=== PATIENT | male | born 1940 | race Caucasian/White ===

== ENCOUNTER 2019-09-27 16:21 | Emergency (ER) | payer BC, MEDICARE, SELFPAY ==
--- NOTE | 2019-09-27 16:11 | ECG_ITS ---
APPROVED REPORT Exam: Resting ECG HR:70 bpm ECG Measurements Heart Rate 70 AXES MA 184 P 38 QRSd 168 QRS 51 QT 438 T 17 QTc 473 <Conclusion> Normal sinus rhythm Right bundle branch block Abnormal ECG Electronically signed by : Higinio Michael, 09/30/2019 17:13:59
[2019-09-27 16:21] VITALS: BP 109/61; PULSE 71; RESP 16; TEMP 36.6; O2SAT 99; BMI 38.5
--- NOTE | 2019-09-27 16:23 | XR_ITS ---
PROCEDURE: XR CHEST PORTABLE CLINICAL HISTORY: Chest pain COMPARISON: No exams were available for comparison FINDINGS: There is cardiomegaly. There are low lung volumes with elevated left hemidiaphragm and mild atelectatic changes in the lung bases. Upper lobes are clear. No acute bony abnormalities. IMPRESSION: Cardiomegaly with low lung volumes and bibasilar atelectasis Dictated by: Johnny Lobo MD 09/27/2019 19:19 Electronically signed by Johnny Lobo MD in [place] 09/27/2019 19:19
[2019-09-27 16:36] LABS: Basophils # 0.1 K/mm3 (0-0.2); Basophils % 0.5 % (0.1-2.0); Eosinophils # 0.6 K/mm3 (0.0-0.4); Eosinophils % 4.5 % (0.1-12.0); Hemoglobin 13.9 g/dL (14.1-18.0); Lymphocytes # 2.9 K/mm3 (0.7-4.5); Lymphocytes % 20.7 % (10-50); Mean Corpuscular HGB Conc 32.4 g/dL (31.8-35.4); Mean Corpuscular Hemoglobin 32.4 pg (27.0-31.2); Mean Platelet Volume 8.1 fl (7.4-10.4); Monocytes # 0.8 K/mm3 (0.1-1.0); Monocytes % 5.9 % (1.7-9.3); Neutrophils # 9.7 K/mm3 (1.8-7.8); Neutrophils % 68.5 % (37.0-80.0); Platelet Count 393 K/mm3 (142-424); Red Cell Distribution Width 13.9 % (11.5-17.5); White Blood Count 14.2 K/mm3 (4.8-10.8)
[2019-09-27 16:38] LABS: Chloride 106 mmol/L (98-107)
[2019-09-27 16:39] LABS: Potassium 5.2 mmoL/L (3.5-5.1); Sodium 138 mmol/L (136-145)
[2019-09-27 16:41] LABS: Blood Urea Nitrogen 37 mg/dl (9-20); Creatinine Clearance Estimated 52 mL/min (50-200); Estimated Glomerular Filt Rate 28 ml/min (>60); GFR (African American) 34 ML/MIN (>60)
[2019-09-27 16:42] LABS: Anion Gap 15.2 mEq/L (5-15); Carbon Dioxide 22 mmol/L (22.0-30.0); Glucose 124 mg/dl (74-100)
[2019-09-27 17:03] LABS: Troponin I < 0.01 ng/ml (0.00-0.034)
[2019-09-27 17:17] VITALS: BP 105/55; PULSE 71; O2SAT 94
--- NOTE | 2019-09-27 17:26 | HMH.EDGENADL ---
ED Disposition Clinical Impression: Atypical chest pain, Renal insufficiency Disposition: Home, Self-Care Condition on Discharge: Good Instructions: DI for Atypical Chest Pain Additional Instructions: Drink plenty of fluids. Follow-up with your primary care provider on Monday. You will need repeat labs to check your kidney function. Additional instructions for CHEST PAIN: See your physician as soon as possible for further evaluation. Return immediately if worsening chest pain, vomiting, shortness of breath, fever, coughing of blood. Referrals: Provider,Referral, [Primary Care Provider] - - Critical Care Critical Care Time: No Attestation: On 09/27/19, the high probability of a clinically significant, sudden or life threatening deterioration of the following system(s) required my full and direct attention, intervention and personal management. The time I documented below is in addition to time spent performing reported procedures but includes the following listed in this critical care notation. Medical Decision Making - Rich Inquiry Pt receiving controlled substance: No Vital Signs: 09/27/19 16:21 09/27/19 17:17 09/27/19 18:28 Temperature 98 F Temperature Source Oral Pulse Rate [Right Brachial] 71 71 66 Respiratory Rate 16 16 Blood Pressure [Right Arm] 109/61 L 105/55 L 114/62 Blood Pressure Mean [Right Arm] 77 71 79 Blood Pressure Source [Right Arm] Automatic Cuff Automatic Cuff Automatic Cuff Blood Pressure Position [Right Arm] Sitting Sitting Sitting 02 Sat by Pulse Oximetry 99 94 L 98 Oxygen Delivery Method Room Air Room Air Room Air 09/27/19 19:00 Temperature Temperature Source Pulse Rate [Right Brachial] 68 Respiratory Rate 20 Blood Pressure [Right Arm] 118/60 Blood Pressure Mean [Right Arm] 79 Blood Pressure Source [Right Arm] Blood Pressure Position [Right Arm] 02 Sat by Pulse Oximetry 96 Oxygen Delivery Method - Lab Data Lab Results 09/27/19 16:00: WBC 14.2 H, RBC 4.30 L, Hgb 13.9 L, Hct 43.0, MCV 100.0 H, MCH 32.4 H, MCHC 32.4, RDW 13.9, Plt Count 393, MPV 8.1, Neut % (Auto) 68.5, Lymph % (Auto) 20.7, [place] % (Auto) 5.9, Eos % (Auto) 4.5, Baso % (Auto) 0.5, Neut # (Auto) 9.7 H, Lymph # (Auto) 2.9, [place] # (Auto) 0.8, Eos # (Auto) 0.6 H, Baso # (Auto) 0.1 09/27/19 16:00: Sodium 138, Potassium 5.2 H, Chloride 106, Carbon Dioxide 22, Anion Gap 15.2 H, BUN 37 H, Creatinine 2.30 H, Estimated Creat Clear 52, Estimated GFR 28 L, Est GFR ( Amer) 34 L, Glucose 124 H, Calcium 10.0, Troponin I < 0.01 09/27/19 19:25: Troponin I < 0.01 Result diagrams: 09/27/19 16:00 09/27/19 16:00 Orders (Tests/Meds): ED MEDICATIONS Discontinued Medications Generic Name Dose Route Start Last Admin Trade Name Freq PRN Reason Stop Dose Admin Sodium Chloride 1,000 ml 09/27/19 17:41 09/27/19 17:45 Sod Chlor 0.9% 1000ml Bag IV 09/27/19 17:42 1,000 ml BOLUS ONE Administration ORDERS Category Date Time Status Troponin I Q3H Lab 09/27/19 22:30 Ordered - Radiology Data #1 Image(s): Chest Image Reviewed: Yes I reviewed the patient's radiology image, Yes I have reviewed radiologist's interpretation PROCEDURE: XR CHEST PORTABLE CLINICAL HISTORY: Chest pain COMPARISON: No exams were available for comparison FINDINGS: There is cardiomegaly. There are low lung volumes with elevated left hemidiaphragm and mild atelectatic changes in the lung bases. Upper lobes are clear. No acute bony abnormalities. IMPRESSION: Cardiomegaly with low lung volumes and bibasilar atelectasis Dictated by: Johnny Lobo MD 09/27/2019 19:19 Electronically signed by Johnny Lobo MD in [place] 09/27/2019 19:19 - ECG Data Tracing #1 EKG interpreted by Sarmad Salazar MD: Rhythm: sinus Rate: 70 [place]: normal Ectopy: none Conduction: Right bundle branch block ST Segment Changes: none T Wave Changes: none Q Waves: none No evidence of acute i
[2019-09-27 18:28] VITALS: BP 114/62; PULSE 66; RESP 16; O2SAT 98
--- NOTE | 2019-09-27 18:28 | PC.NURSE ---
pt resting. no pain at this time
[2019-09-27 19:00] VITALS: BP 118/60; PULSE 68; RESP 20; O2SAT 96
[2019-09-27 20:00] VITALS: BP 135/72; PULSE 68; O2SAT 97
[2019-09-27 20:13] LABS: Troponin I < 0.01 ng/ml (0.00-0.034)
[2019-09-27 20:31] VITALS: BP 135/72; PULSE 66; RESP 17; TEMP 36.6; O2SAT 97
== END 2019-09-27 20:34 | disposition home or self-care (01) ==
PROVIDERS: Emergency Provider Emergency Medicine
DX: R07.89 Other chest pain (principal); N28.9 Disorder of kidney and ureter, unspecified; R73.9 Hyperglycemia, unspecified
CPT/HCPCS: 36415; 71045; 80048; 84484; 85025; 93005; 96365; 99284

== ENCOUNTER 2022-01-03 10:00 | Outpatient (RCR) | payer MEDICARE, SELFPAY | END 2022-02-04 09:11 | disposition home or self-care (01) | LOC: PT.CARL 10:00 | PROVIDERS: Visit Provider Nurse Practitioner Family | DX: M15.8 Other polyosteoarthritis (principal) | CPT/HCPCS: 97010; 97012; 97014; 97110; 97140; 97163; G0283 ==

== ENCOUNTER 2023-05-04 21:39 | Inpatient (IN) | payer MEDICARE, SELFPAY ==
[2023-05-04 21:39] VITALS: BP 180/81; PULSE 91; RESP 42; TEMP 36.9; O2SAT 93; BMI 39.5
--- NOTE | 2023-05-04 21:51 | ECG_ITS ---
APPROVED REPORT Exam: Resting ECG HR:87 bpm ECG Measurements Heart Rate 87 AXES IA 205 P 40 QRSd 170 QRS 140 QT 390 T 0 QTc 435 Conclusion SINUS RHYTHM INDETERMINATE AXIS RIGHT BUNDLE BRANCH BLOCK [120+ ms QRS DURATION, UPRIGHT V1, 40+ ms S IN I/aVL/V4/V5/V6] LEFT POSTERIOR FASCICULAR BLOCK [QRS AXIS > 109, INFERIOR Q] ABNORMAL ECG UNCONFIRMED REPORT Electronically signed by : Higinio Michael MD 05/06/2023 06:34:36
[2023-05-04 22:27] VITALS: BMI 38.0
--- NOTE | 2023-05-04 22:27 | XR_ITS ---
PROCEDURE INFORMATION: Exam: XR Chest Exam date and time: 05/04/2023 10:29 PM Age: 82 years old Clinical indication: Dyspnea TECHNIQUE: Imaging protocol: Radiologic exam of the chest. Views: 1 view. COMPARISON: CR XR CHEST PORTABLE 09/27/2019 4:38 PM FINDINGS: Lungs: Stable atelectasis of the left lung base. Pleural spaces: No large effusion or pneumothorax. Heart/Mediastinum: Stable cardiac and mediastinal contours. Bones/joints: No evidence of acute osseous abnormalities within the visualized portions of the thoracic spine and ribs. Osseous structures appear appropriate for patient age. Gastrointestinal tract: There is mild gaseous distention of partially visualized bowel loops. IMPRESSION: Atelectasis at the left lung base, present since September 27, 2019 which may obscure parenchymal consolidation.
--- NOTE | 2023-05-04 22:29 | ED_ITS ---
Discharge Plan Disposition Patient Disposition: Still a Patient Chief Complaint: Recheck/Abnormal Lab/Rx Prescriptions Prescriptions: No Action alprazolam 1 mg tablet 1 mg PO HS metoprolol tartrate 100 mg tablet 100 mg PO BID diphenoxylate-atropine 2.5-0.025 mg tablet 2.5 tab PO DAILY PRN (Reason: Diarrhea) tramadol 50 mg tablet 50 mg PO BID tamsulosin 0.4 mg capsule 0.4 mg PO DAILY levothyroxine 50 mcg tablet 50 mcg PO DAILY lisinopril 10 mg tablet 10 mg PO DAILY hydrochlorothiazide 25 mg tablet 25 mg PO DAILY furosemide 20 mg tablet 20 mg PO DAILY PRN (Reason: as need for swelling ) escitalopram oxalate 10 mg tablet 10 mg PO DAILY Tradjenta 5 mg tablet 5 mg PO DAILY Referrals Follow up/Referrals: Marlyn Ortega [Primary Care Provider] - See instructions Clinical Impressions Clinical Impression: Chills Discharge ED Provider: Mary Ledesma General Adult HPI General Chief complaint: Recheck/Abnormal Lab/Rx Stated complaint: onset of 'chills, cold' @ 1900 Time Seen by Provider: 05/04/23 22:12 Mode of Arrival: EMS Source of Information: Patient and EMS Limitations: No Limitations Description of Symptoms (Recalled from ER Triage Doc. by RN): Patient arrived by EMS with a chief complaint of chills and general unwellness. Patient reports that he began having chills at approximately 6pm and shortly after had a brief sharp chest pain to his left upper chest. 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 Patient denies increased shortness of breath. Spouse states that he stated that he just couldn't get warm and that he said he didn't think he would make it through the night History of Present Illness HPI narrative: Is a an 82-year-old male who is a poor historian presents today with chills. States that he has had chills for the last 24 hours. States he does not feel sick he just feels very cold and has been able to get warm. Has a difficult time being normal at times this is more than normal. Denies any cough satiety or diarrhea states he may have some increased urine output over the last several days. Denies any significant dysuria or hematuria etc. Denies any abdominal pain chest pain shortness of breath states he is always little bit tachypneic. No objective fever during this time. Currently states he does not feel sick and that he feels good. Denies any rash or any other concerns. Related Data Home Medications Medication Instructions Recorded Confirmed alprazolam 1 mg tablet 1 mg PO HS 05/04/23 05/04/23 diphenoxylate-atropine 2.5 2.5 tab PO DAILY PRN Diarrhea 05/04/23 05/04/23 mg-0.025 mg tablet escitalopram oxalate 10 mg tablet 10 mg PO DAILY 05/04/23 05/04/23 furosemide 20 mg tablet 20 mg PO DAILY PRN as need for 05/04/23 05/04/23 swelling hydrochlorothiazide 25 mg tablet 25 mg PO DAILY 05/04/23 05/04/23 levothyroxine 50 mcg tablet 50 mcg PO DAILY 05/04/23 05/04/23 linagliptin 5 mg tablet (Tradjenta) 5 mg PO DAILY 05/04/23 05/04/23 lisinopril 10 mg tablet 10 mg PO DAILY 05/04/23 05/04/23 metoprolol tartrate 100 mg tablet 100 mg PO BID 05/04/23 05/04/23 tamsulosin 0.4 mg capsule 0.4 mg PO DAILY 05/04/23 05/04/23 tramadol 50 mg tablet 50 mg PO BID 05/04/23 05/04/23 Allergies Allergy/AdvReac Type Severity Reaction Status Date / Time No Known Allergies Allergy Verified 09/27/19 16:26 [facility] Disclaimer: The information contained in this section may have been updated after the patient was seen, as this information can be updated by other users. Social History Smoking Status: Never smoker alcohol intake: never current occupational status: retired Travel in the last 8 weeks: None ROS Obtained: Yes All systems reviewed & no additional complaints except as do cumented Physical Exam General General appearance: alert and in no apparent distress Respiratory Respiratory exam: Present normal lung sounds bilaterally and other (Patient mildly tachypneic states he is breathing how he normally breathes he does not feel short of breath); Absent respiratory distress Cardiovascular Cardiovascular exam: Present regular rate and normal rhythm Abdominal Exam Abdominal exam: Present soft; Absent distention or tenderness Neurological Exam Neurological exam: Present alert and oriented X3 Medical Decision Making Rich Inquiry Pt receiving controlled substance: No Vital Signs: 05/04/23 21:39 Temperature 98.5 F Temperature Source Oral Pulse Rate [Left Radial] 91 H Respiratory Rate 42 H Blood Pressure [Right Arm] 180/81 H Blood Pressure Mean [Right Arm] 114 Blood Pressure Source [Right Arm] Automatic Cuff Blood Pressure Position [Right Arm] Sitting 02 Sat by Pulse Oximetry 93 L Oxygen Delivery Method Room Air Orders (Tests/Meds): ORDERS Category Date Time Status CXR --portable [XR chest portable] Stat Exams 05/04/23 22:27 Ordered POCUS Point of Care (ER Only) Stat Exams 05/04/23 22:12 Ordered BNP [Brain Natriuretic Peptide] Stat Lab 05/04/23 22:27 Ordered CBC w/Auto Diff [Complete Blood Count Auto Diff] Stat Lab 05/04/23 22:27 Ordered CMP [Comprehensive Metabolic Panel] Stat Lab 05/04/23 22:27 Ordered Lactic Acid Stat Lab 05/04/23 22:27 Ordered Rapid PCR Covid and Flu A/B Stat Lab 05/04/23 22:27 Ordered Trop I [Troponin I] Stat Lab 05/04/23 22:27 Ordered Troponin I Q3H Lab 05/05/23 01:30 Ordered Troponin I Q3H Lab 05/05/23 04:30 Ordered UA [Urinalysis and Microscopic] Stat Lab 05/04/23 22:27 Ordered Blood Culture Stat Micro 05/04/23 22:27 Ordered Medical Decision Narrative: 82-year-old male presents today with chills. Patient states he does not feel sick and just feels very cold unable to get warm. It is possible the patient is bacteremic or has chills as a result of an infection. Will get rapid COVID and flu chest x-ray urinalysis blood culture and check basic blood work including lactic acid. Patient appears fairly normal. He was a little tachypneic I did a bedside ultrasound he is obese and has a difficult body habitus to see his hea rt. No obvious evidence of diminished LVEF etc. Suspect the patient is just cold but sepsis is certainly in the differential in the setting of infection. States he feels good at the moment EKG was performed to person interpreted shows a ventricular rate of 87 with right bundle branch block no acute ischemic changes noted no other conduction abnormalities there is an indeterminate axis left posterior fascicular block as well. Workup has been initiated and care will be transitioned to Dr. Lauren Savage at 11 PM for further evaluation and treatment. Critical Care Critical Care Time Critical Care Time: No
[2023-05-04 22:36] LABS: Microscopic, Urine URINE MICROSCOPIC (MICROSCOPIC)
[2023-05-04 22:37] LABS: Basophils # 0.1 K/mm3 (0-0.2); Basophils % 0.2 % (0.1-2.0); Eosinophils # 0.3 K/mm3 (0.0-0.4); Eosinophils % 0.9 % (0.1-12.0); Hematocrit 44.9 % (42.0-52.0); Hemoglobin 14.1 g/dL (14.1-18.0); Lymphocytes # 1.1 K/mm3 (0.7-4.5); Lymphocytes % 3.8 % (10-50); Mean Corpuscular HGB Conc 31.4 g/dL (31.8-35.4); Mean Corpuscular Volume 101.7 fl (80-94); Mean Platelet Volume 8.6 fl (7.4-10.4); Monocytes # 0.9 K/mm3 (0.1-1.0); Neutrophils # 26.4 K/mm3 (1.8-7.8); Neutrophils % 92.2 % (37.0-80.0); Platelet Count 241 K/mm3 (142-424); Red Blood Count 4.41 M/mm3 (4.60-6.20); Red Cell Distribution Width 13.9 % (11.5-17.5); White Blood Count 28.6 K/mm3 (4.8-10.8)
[2023-05-04 22:39] LABS: Appearance,Urine CLEAR (Clear); Bilirubin,Urine Negative (Negative); Blood, Urine Negative (Negative); Color,Urine YELLOW (Yellow); Glucose,Urine (UA) 1+ (Negative); Ketones,Urine Negative (Negative); Leukocyte Esterase,Urine Negative (Negative); Nitrate,Urine Negative (Negative); Protein,Urine TRACE (Negative); Specific Gravity, Urine 1.015 (1.005-1.030); Urobilinogen,Urine >=8.0 EU/dl (0.2)
[2023-05-04 22:40] LABS: MANUAL DIFFERENTIAL MANUAL DIFFERENTIAL (MANUAL DIFF)
[2023-05-04 22:42] LABS: Lactic Acid 1.8 mmol/L (0.7-2.1)
[2023-05-04 22:43] LABS: Alanine Aminotransferase 21 U/L (12-78); Albumin Level 3.6 g/dl (3.5-5.0); Albumin/Globulin Ratio 1.1 (1.1-1.8); Alkaline Phosphatase 53 U/L (38-126); Anion Gap 8.3 mEq/L (5-15); Aspartate Amino Transferase 27 U/L (17-59); Bilirubin,Total 1.2 mg/dl (0.2-1.3); Blood Urea Nitrogen 22 mg/dl (9-20); Calcium 9.2 mg/dl (8.4-10.2); Carbon Dioxide 33 mmol/L (22.0-30.0); Chloride 100 mmol/L (98-107); Creatinine Clearance Estimated 104 mL/min (50-200); Estimated Glomerular Filt Rate 64 ml/min (>60); GFR (African American) 78 ML/MIN (>60); Globulin 3.4 g/dL (1.3-3.2); Glucose 240 mg/dl (74-100); Potassium 4.3 mmoL/L (3.5-5.1); Sodium 137 mmol/L (136-145)
[2023-05-04 22:49] LABS: Squamous Epithelial Cell,Urine Occasional #/hpf (0-5); WBC,Urine Occasional #/hpf (0-3)
[2023-05-04 22:54] LABS: NT Pro Brain Natriuretic Pep. 431 pg/mL (0-450); Troponin I < 0.01 ng/ml (0.00-0.034)
[2023-05-04 22:58] LABS: Lymphocytes % 4 % (10-50); Macrocytosis 1+; Monocytes % 5 % (2-9); Neutrophils % 91 % (42-76); Platelet Estimate Normal; Total Cells Counted 100
--- NOTE | 2023-05-04 23:04 | P.HP_ITS ---
History of Present Illness *Admission Date: 05/04/23 *Reason for visit:: chills *History of present illness: This is a 82-year-old male with PMHx of HTN, HLD, apparently type 2 DM, very poor historian presents today with chills. at bedside contribute little to history. Patient states that he has been having chills that started the afternoon prior to admission. States he does not feel sick he just feels very cold, shaky and has not been able to get warm. Denies any cough satiety or diarrhea states he may have some increased urine output over the last several days. Denies any significant dysuria or hematuria etc. Denies any abdominal pain chest pain shortness of breath states he is always little bit tachypneic. No objective fever during this time. Currently states he does not feel sick and that he feels good. Denies any rash or any other concerns. Admitted for treat ent and management. [facility] Disclaimer: The information contained in this section may have been updated after the patient was seen, as this information can be updated by other users. Surgical History (Updated 05/05/23 @ 00:04 by Laine Tsang RN) History of splenectomy Family History (Updated 05/05/23 @ 00:04 by Laine Tsang RN) Family history of heart disease Social History (Updated 05/05/23 @ 00:04 by Laine Tsang RN) Smoking Status: Never smoker alcohol intake: never current occupational status: retired Travel in the last 8 weeks: None Review of Systems Review of Systems Review of systems:: pertinent systems reviewed and negative unless documented below Meds Home Medications and Allergies Home Medications Medication Instructions Recorded Confirmed Type alprazolam 1 mg tablet 1 mg PO HS Anxiety 05/04/23 05/05/23 History escitalopram oxalate 10 mg tablet 10 mg PO DAILY Mood 05/04/23 05/05/23 History furosemide 20 mg tablet 20 mg PO DAILYP PRN Swelling 05/04/23 05/05/23 History hydrochlorothiazide 25 mg tablet 25 mg PO DAILY Fluid 05/04/23 05/05/23 History levothyroxine 50 mcg tablet 50 mcg PO DAILY Thyroid 05/04/23 05/05/23 History linagliptin 5 mg tablet (Tradjenta) 5 mg PO DAILY Diabetes 05/04/23 05/05/23 History lisinopril 10 mg tablet 10 mg PO DAILY High Blood Pressure 05/04/23 05/05/23 History metoprolol tartrate 100 mg tablet 100 mg PO BID High Blood Pressure 05/04/23 05/05/23 History tamsulosin 0.4 mg capsule 0.4 mg PO DAILY Prostate 05/04/23 05/05/23 History tramadol 50 mg tablet 50 mg PO BIDP PRN Moderate Pain 05/04/23 05/05/23 History (Scale Score 5-6) New Prescriptions to Start Prescriptions: Allergies Allergy/AdvReac Type Severity Reaction Status Date / Time No Known Allergies Allergy Verified 09/27/19 16:26 Exam Data for Last 24 hours Vital signs and Labs for Last 24 Hours: Temp Pulse Resp BP Pulse Ox O2 Del Method 98.5 F 91 H 42 H 180/81 H 93 L Room Air 05/04/23 21:39 05/04/23 21:39 05/04/23 21:39 05/04/23 21:39 05/04/23 21:39 05/04/23 21:39 Laboratory Results - last 24 hr 05/04/23 21:50: WBC 28.6 H*, RBC 4.41 L, Hgb 14.1, Hct 44.9, MCV 101.7 H, MCH 32.0 H, MCHC 31.4 L, RDW 13.9, Plt Count 241, MPV 8.6, Neut % (Auto) 92.2 H, Lymph % (Auto) 3.8 L, [place] % (Auto) 3.0, Eos % (Auto) 0.9, Baso % (Auto) 0.2, Neut # (Auto) 26.4 H, Lymph # (Auto) 1.1, [place] # (Auto) 0.9, Eos # (Auto) 0.3, Baso # (Auto) 0.1, Total Counted 100, Neutrophils % (Manual) 91 H, Lymphocytes % (Manual) 4 L, Monocytes % (Manual) 5, Platelet Estimate Normal, Macrocytosis 1+, Sodium 137, Potassium 4.3, Chloride 100, Carbon Dioxide 33 H, Anion Gap 8.3, BUN 22 H, Creatinine 1.10, Estimated Creat Clear 104, Estimated GFR 64, Est GFR ( Amer) 78, Glucose 240 H, Lactate 1.8, Calcium 9.2, Total Bilirubin 1.2, AST 27, ALT 21, Alkaline Phosphatase 53, Troponin I < 0.01, NT-Pro-B Natriuret Pep 431, Total Protein 7.0, Albumin 3.6, Globulin 3.4 H, Albumin/Globulin Ratio 1.1 05/04/23 : Urine Color Yellow, Urine Appearance Clear, Urine pH 7.0, Ur Specific Mineral 1.015, Urine Protein Trace, Urine Glucose (UA) 1+, Urine Ketones Negative, Urine Blood Negative, Urine Nitrate Negative, Urine Bilirubin Negative, Urine Urobilinogen >=8.0, Ur Leukocyte Esterase Negative, Urine RBC None, Urine WBC Occasional, Ur Squamous Epith Cells Occasional, Urine Bacteria None I & O for Last 24 hours: Intake & Output 05/01/23 05/02/23 05/03/23 05/04/23 23:59 23:59 23:59 23:59 Weight 139.797 kg Constitutional Constitutional: mild distress, obese and cooperative *Routine HEENT Exam Head: Present normocephalic and atraumatic Eye: Present EOMI, PERRL and normal accommodation ENT: Present mucous membranes moist *Routine Neck Exam Neck: Present supple, full ROM and trachea midline *Routine Respiratory Exam Respiratory: Present CTA bilaterally, stridor, normal respiratory effort, able to speak in complete sentences and symmetric chest movement; Absent respiratory distress *Routine Cardiovascular Exam Cardiovascular: Present RRR, Normal S1 and Normal S2 *Routine Abdominal Exam Abdominal: Present soft and normoactive bowel sounds; Absent tenderness or organomegaly *Routine Rectal Exam Rectal:: deferred *Routine Genitalia Exam Genitalia:: deferred *Routine Extremities Exam Extremities: Present edema (3+), full ROM, pulses intact and extremity cold to touch; Absent cyanosis or clubbing *Routine Skin Exam Skin: Present intact, dry, warm and rash *Routine Neurological Exam Neurological: Present alert, oriented X3, normal reflexes, moving all extremities and normal speech Routine Psychiatric Exam Psychiatric: Present normal thought process, cooperative and good judgment H&P: Result Imaging and Cardiology Chest x-ray: Status: image reviewed by me, Preliminary report and final report Assessment and Plan *Assessment and plan (1) Sepsis: Status: Acute Qualifiers: Sepsis acute organ dysfunction status: without acute organ dysfunction Sepsis type: sepsis due to unspecified organism Qualified Code(s): A41.9 - Sepsis, unspecified organism Category: Medical Code(s): A41.9 - Sepsis, unspecified organism (2) Tachypnea: Status: Acute Category: Medical Code(s): R06.82 - Tachypnea, not elsewhere classified (3) Leukocytosis: Status: Acute Qualifiers: Leukocytosis type: unspecified Qualified Code(s): D72.829 - Elevated white blood cell count, unspecified Category: Medical Code(s): D72.829 - Elevated white blood cell count, unspecified (4) Chills: Status: Acute Category: Medical Code(s): R68.83 - Chills (without fever) (5) HTN (hypertension): Status: Acute Qualifiers: Hypertension type: unspecified Qualified Code(s): I10 - Essential (primary) hypertension Category: Medical Code(s): I10 - Essential (primary) hypertension (6) Peripheral edema: Status: Acute Category: Medical Code(s): R60.0 - Localized edema Plan 82-year-old male with PMHx of HTN, HLD, apparently type 2 DM, very poor historian presents today with chills. at bedside contribute little to history. Patient states that he has been having chills that started the afternoon prior to admission. On arrival CXR does not showed focal consoliddation however bilateral lower atelectasis may mask. Patient has a severe leukocytosis of 28, tachypneic, objectively meet SIRS criteria. Patient has a suspected infection of possible bacteremia with shaking chills. Sepsis protocols initiated. BC drawn. no band neutrophils procalcitonin and lactate are normal. CRP elevated. Started on Vanco cefepime Flagyl and after discussed with ER provider about all this findings. We will admit him for early sepsis and concern for possible bacteremia. Plan as follow: -Suspected SIRS/sepsis presented with tachypnea and chills and leukocytosis: Admit patient for medical services. No acute organ dysfunction. Dispo MedSurg Started on infective protocol Vancomycin and cefepime probably given Blood culture pending. No clear sources of infection Monitor for sepsis and temperature per unit Rest of the vital signs per unit protocol Monitor CBC daily -History of hypertension: On hydrochlorothiazide, lisinopril and metoprolol. Condition stable. In the setting of suspected sepsis we may resume later if did not show hypotensive symptoms will going continue to monitor Other chronic conditions May include hypothyroidism and diabetes Apparently home levothyroxine and Tradjenta Presented with peripheral edema and per chart review previous history of kidney injury Currently and creatinine normal Continue monitor for renal output Lovenox for DVT prophylaxis. On Protonix Full code Rounded on patient after nurse practitioner. Personally examined and interviewed patient. Agree with exam findings and care plan as documented. will obtain CT Chest/Abd/Pelvis to eval for source of infection or leukocytosis.
--- NOTE | 2023-05-04 23:05 | PC.NURSE ---
Admissions to [facility] 209 OBS, hospitalist, Dx: Bacteremia
--- NOTE | 2023-05-04 23:06 | PC.NURSE ---
Lab at bedside for blood cultures
[2023-05-04 23:08] LABS: Coronavirus 19, PCR Not Detected (NotDetected); Influenza A, PCR Not Detected (NotDetected); Influenza B, PCR Not Detected (NotDetected)
--- NOTE | 2023-05-04 23:12 | PC.NURSE ---
Report given to NICHOLAS Brasher
--- NOTE | 2023-05-04 23:15 | PC.NURSE ---
Vancomycin verified by
[2023-05-04] MEDS: VANCOMYCIN CONSULT REQUEST 1 EACH NOTAPPLIC (23:26)
[2023-05-04 23:37] LABS: C-Reactive Protein 12.4 mg/L (0-4)
[2023-05-04 23:39] VITALS: BP 150/70; PULSE 70; RESP 20; TEMP 36.7; O2SAT 93
[2023-05-04 23:40] VITALS: BP 150/70; PULSE 70; RESP 20; TEMP 36.7; O2SAT 95
[2023-05-04 23:49] LABS: Procalcitonin 0.056 ng/mL (0.0-2.0)
--- NOTE | 2023-05-04 23:55 | PC.NURSE ---
Patient arrived to floor via wheelchair from ED at 23:45.
[2023-05-05] VITALS: BP 149/69; PULSE 88; RESP 18; TEMP 37.6; O2SAT 92
[2023-05-05] MEDS: CEFEPIME HCL 2 GM in 0.9 % SODIUM CHLORIDE 100 ML IV ×3 (00:29→18:49)
--- NOTE | 2023-05-05 00:30 | PC.NURSE ---
Patient arrived to unit from ED via wheelchair. Staff assisted patient with transfer from w/c to bed . Patient denies any pain at this time. Family is present in room with patient. Pt. is alert and orient x4. Grinder Hand oriented patient to room, educated on use of call light, tv remote and bed remote with a voice of understanding. Bed in lowest position with call light in reach.
[2023-05-05] MEDS: METRONIDAZ/SOD CHL 500 MG/100 ML PIGGYBACK 100 MG IV ×3 (01:51→17:03)
[2023-05-05 01:54] LABS: Troponin I 0.03 ng/ml (0.00-0.034)
[2023-05-05] MEDS: VANCOMYCIN/WATER FOR INJ (PEG) 1.25 GM/250 ML PIGGYBACK IV ×2 (03:35→05:50)
[2023-05-05 04:00] VITALS: BP 116/49; PULSE 81; RESP 16; TEMP 37.1; O2SAT 90; BMI 38.0
[2023-05-05 04:49] LABS: Basophils # 0.1 K/mm3 (0-0.2); Basophils % 0.2 % (0.1-2.0); Eosinophils # 0.4 K/mm3 (0.0-0.4); Eosinophils % 1.2 % (0.1-12.0); Hematocrit 42.1 % (42.0-52.0); Hemoglobin 13.5 g/dL (14.1-18.0); Lymphocytes # 1.5 K/mm3 (0.7-4.5); Lymphocytes % 4.3 % (10-50); Mean Corpuscular HGB Conc 32.1 g/dL (31.8-35.4); Mean Corpuscular Hemoglobin 32.1 pg (27.0-31.2); Mean Platelet Volume 8.3 fl (7.4-10.4); Monocytes # 1.1 K/mm3 (0.1-1.0); Monocytes % 3.1 % (1.7-9.3); Neutrophils % 91.2 % (37.0-80.0); Platelet Count 257 K/mm3 (142-424); Red Blood Count 4.21 M/mm3 (4.60-6.20); Red Cell Distribution Width 13.8 % (11.5-17.5)
[2023-05-05 04:53] LABS: Chloride 101 mmol/L (98-107); Potassium 4.2 mmoL/L (3.5-5.1); Sodium 136 mmol/L (136-145)
[2023-05-05 04:56] LABS: Alanine Aminotransferase 19 U/L (12-78); Albumin Level 3.1 g/dl (3.5-5.0); Albumin/Globulin Ratio 0.9 (1.1-1.8); Alkaline Phosphatase 53 U/L (38-126); Anion Gap 4.2 mEq/L (5-15); Aspartate Amino Transferase 22 U/L (17-59); Bilirubin,Total 1.7 mg/dl (0.2-1.3); Blood Urea Nitrogen 21 mg/dl (9-20); Carbon Dioxide 35 mmol/L (22.0-30.0); Creatinine Clearance Estimated 85 mL/min (50-200); Estimated Glomerular Filt Rate 53 ml/min (>60); GFR (African American) 64 ML/MIN (>60); Globulin 3.4 g/dL (1.3-3.2); Glucose 199 mg/dl (74-100); Magnesium 1.6 mg/dl (1.6-2.3); Total Protein,Serum 6.5 g/dl (6.3-8.2)
[2023-05-05 05:08] LABS: Troponin I 0.04 ng/ml (0.00-0.034)
--- NOTE | 2023-05-05 06:57 | CT_ITS ---
FINAL REPORT TECHNIQUE: Axial images through the abdomen and pelvis were performed without contrast.This study was performed with techniques to keep radiation doses as low as reasonably achievable, (ALARA). Individualized dose reduction techniques using automated exposure control or adjustment of mA and/or kV according to the patient's size were employed. CLINICAL HISTORY: leukoccytosis, SIRS no explanation FINDINGS: ABDOMEN: There is streak artifact from the patient's arm position. The heart size is normal. Limited images of the liver are unremarkable. There are probable gallstones. Patient is status post splenectomy. Bilateral adrenal nodules are seen, favor adenomas.. The aorta is normal in caliber. There is no significant free fluid or adenopathy. There is no nephrolithiasis. There is no hydronephrosis. There is a lobular right renal mass measuring 11.8 x 8.1 cm consistent with renal neoplasm. PELVIS: The appendix is not identified. The urinary bladder is unremarkable. There is no significant free fluid or adenopathy. Patient is status post left hip arthroplasty. IMPRESSION: Findings consistent with right renal neoplasm. Reviewed, Interpreted and Dictated by Abhi Terrell III, MD Transcribed by Bhavna Parisi Authenticated and [facility]
--- NOTE | 2023-05-05 06:57 | CT_ITS ---
FINAL REPORT TECHNIQUE: Axial imaging of the chest was obtained without contrast. Reformatted images were also obtained and reviewed.This study was performed with techniques to keep radiation doses as low as reasonably achievable, (ALARA). Individualized dose reduction technique using automated exposure control or adjustment of mA and/or kV according to the patient's size were employed. CLINICAL HISTORY: SIRS, cxr abnormal FINDINGS: There are severe coronary artery calcifications. There is no axillary adenopathy. There is no hilar or mediastinal mass or adenopathy. Heart size is normal. There is no pericardial or pleural effusion. There is elevation of the left hemidiaphragm with areas of left lung atelectasis. There are multiple right posterior rib fractures, most of which are chronic. However, there is a right T9 posterior rib fracture which may be acute. There is no pneumothorax. IMPRESSION: Severe coronary artery calcifications. Possible acute right T9 posterior rib fracture. No pneumothorax. Reviewed, Interpreted and Dictated by Abhi Terrell III, MD Transcribed by Bhavna Parisi Authenticated and [facility]
--- NOTE | 2023-05-05 07:42 | HMH.PHAINT1 ---
Pharmacy Intervention Comments: MEDICATION RECONCILIATION COMPLETED ON PATIENT USING EXTERNAL FILL HISTORY FROM PHARMACY AND AGATHA REPORT. -NOE WHITLOCK, CANDACED
[2023-05-05 08:00] VITALS: BP 151/71; PULSE 74; RESP 20; TEMP 37.3; O2SAT 90
--- NOTE | 2023-05-05 08:03 | EXP.PHA.CONS ---
Pharmacy Consult Date: 05/05/23 Time: 08:03 Referring provider: DR. ELLISON Reason for Consult:: VANCOMYCIN DOSING Allergies Allergy/AdvReac Type Severity Reaction Status Date / Time No Known Allergies Allergy Verified 09/27/19 16:26 Home Medications Medication Instructions Recorded Confirmed Type alprazolam 1 mg tablet 1 mg PO HS Anxiety 05/04/23 05/05/23 History escitalopram oxalate 10 mg tablet 10 mg PO DAILY Mood 05/04/23 05/05/23 History furosemide 20 mg tablet 20 mg PO DAILYP PRN Swelling 05/04/23 05/05/23 History hydrochlorothiazide 25 mg tablet 25 mg PO DAILY Fluid 05/04/23 05/05/23 History levothyroxine 50 mcg tablet 50 mcg PO DAILY Thyroid 05/04/23 05/05/23 History linagliptin 5 mg tablet (Tradjenta) 5 mg PO DAILY Diabetes 05/04/23 05/05/23 History lisinopril 10 mg tablet 10 mg PO DAILY High Blood Pressure 05/04/23 05/05/23 History metoprolol tartrate 100 mg tablet 100 mg PO BID High Blood Pressure 05/04/23 05/05/23 History tamsulosin 0.4 mg capsule 0.4 mg PO DAILY Prostate 05/04/23 05/05/23 History tramadol 50 mg tablet 50 mg PO BIDP PRN Moderate Pain 05/04/23 05/05/23 History (Scale Score 5-6) New Prescriptions to Start Prescriptions: Height: 1.88 m Weight: 134.309 kg Laboratory Results:: Laboratory Results - last 24 hr 05/04/23 21:50: WBC 28.6 H*, RBC 4.41 L, Hgb 14.1, Hct 44.9, MCV 101.7 H, MCH 32.0 H, MCHC 31.4 L, RDW 13.9, Plt Count 241, MPV 8.6, Neut % (Auto) 92.2 H, Lymph % (Auto) 3.8 L, [place] % (Auto) 3.0, Eos % (Auto) 0.9, Baso % (Auto) 0.2, Neut # (Auto) 26.4 H, Lymph # (Auto) 1.1, [place] # (Auto) 0.9, Eos # (Auto) 0.3, Baso # (Auto) 0.1, Total Counted 100, Neutrophils % (Manual) 91 H, Lymphocytes % (Manual) 4 L, Monocytes % (Manual) 5, Platelet Estimate Normal, Macrocytosis 1+, Sodium 137, Potassium 4.3, Chloride 100, Carbon Dioxide 33 H, Anion Gap 8.3, BUN 22 H, Creatinine 1.10, Estimated Creat Clear 104, Estimated GFR 64, Est GFR ( Amer) 78, Glucose 240 H, Lactate 1.8, Calcium 9.2, Total Bilirubin 1.2, AST 27, ALT 21, Alkaline Phosphatase 53, Troponin I < 0.01, C-Reactive Protein 12.4 H, NT-Pro-B Natriuret Pep 431, Total Protein 7.0, Albumin 3.6, Globulin 3.4 H, Albumin/Globulin Ratio 1.1, Procalcitonin 0.056 05/04/23 23:00: SARS-CoV-2 (PCR) Not detected, Influenza A Untype (PCR) Not detected, Influenza Type B (PCR) Not detected 05/04/23 : Urine Color Yellow, Urine Appearance Clear, Urine pH 7.0, Ur Specific [place] 1.015, Urine Protein Trace, Urine Glucose (UA) 1+, Urine Ketones Negative, Urine Blood Negative, Urine Nitrate Negative, Urine Bilirubin Negative, Urine Urobilinogen >=8.0, Ur Leukocyte Esterase Negative, Urine RBC None, Urine WBC Occasional, Ur Squamous Epith Cells Occasional, Urine Bacteria None 05/05/23 01:30: Troponin I 0.03 05/05/23 04:38: WBC 34.0 H*, RBC 4.21 L, Hgb 13.5 L, Hct 42.1, MCV 100.0 H, MCH 32.1 H, MCHC 32.1, RDW 13.8, Plt Count 257, MPV 8.3, Neut % (Auto) 91.2 H, Lymph % (Auto) 4.3 L, [place] % (Auto) 3.1, Eos % (Auto) 1.2, Baso % (Auto) 0.2, Neut # (Auto) 31.0 H, Lymph # (Auto) 1.5, [place] # (Auto) 1.1 H, Eos # (Auto) 0.4, Baso # (Auto) 0.1, Sodium 136, Potassium 4.2, Chloride 101, Carbon Dioxide 35 H, Anion Gap 4.2 L, BUN 21 H, Creatinine 1.30 H, Estimated Creat Clear 85, Estimated GFR 53 L, Est GFR ( Amer) 64, Glucose 199 H, Calcium 9.0, Magnesium 1.6, Total Bilirubin 1.7 H, AST 22, ALT 19, Alkaline Phosphatase 53, Troponin I 0.04 H, Total Protein 6.5, Albumin 3.1 L D, Globulin 3.4 H, Albumin/Globulin Ratio 0.9 L Assessment and Plan Assessment and plan all Dx Assessment and Plan for all problems:: Pharmacokinetic dosing service Objective: Patient: Floor: Age: 82 yo Serum creatinine: 1.3 mg/dL Height: 74.0 Inches Weight (kg): 134 Assessment: IBW (kg): 82.20 Dosing wt(kg): 134 Estimated Creatinine clearance (ml/min): 51.8 CRCL method: Cockcroft and Gault using ibw(default). Drug selected: Vancomycin Loading dose (mg): 0 Vd (liters): 107.2 (factor used: 0.8 L/kg) Ash (hr-1): 0.047 Half life (hrs): 14.75 Recommended dose: 2000 mg Interval: 18 hrs Infusion time (hrs): 2.0 Predicted peak (mcg/mL): 31.2 Predicted trough (mcg/mL): 14.71 Total body weight is being used for vancomycin dosing. Recommendations: Give Vancomycin 2000 mg q 18 hrs with an expected Cpeak of 31.2 mcg/ml and an expected Ctrough of 14.71 mcg/ml ----Vanco only - ignore for aminoglycosides----- CLvanco= 5.04 L/hr AUC 0-24 /GERALD Data: GERALD 0.5 mcg/mL: AUC/GERALD: 1058.2 GERALD 1.0 mcg/mL: AUC/GERALD: 529.1 --------- GERALD 1.5 mcg/mL: AUC/GERALD: 352.7 GERALD 2.0 mcg/mL: AUC/GERALD: 264.6
[2023-05-05] MEDS: ENOXAPARIN 40MG/0.4ML SYRINGE 40 MG SQ (09:27)
[2023-05-05] MEDS: PANTOPRAZOLE 40MG TABLET 40 MG PO (09:27)
[2023-05-05 09:30] VITALS: O2SAT 91
[2023-05-05] MEDS: ACETAMINOPHEN 325MG TAB 650 MG PO (09:34)
--- NOTE | 2023-05-05 11:55 | EXP.ACUTE.PN ---
Subjective *Date: 05/05/23 *Time: 12:10 Interval history: States he is feeling better this morning. Denies any chest pain or shortness of breath. No nausea or vomiting. Stable on room air. Afebrile. Medical Exam Vital signs and Labs for Last 24 Hours: Vital Signs Temp Pulse Pulse Resp BP BP Pulse Ox 05/05/23 08:00 99.2 F 74 20 151/71 H 90 L 05/05/23 01:30 05/05/23 06:33 05/05/23 04:00 98.8 F 81 16 116/49 L 90 L 05/05/23 03:00 05/05/23 01:00 05/04/23 23:40 98.0 F 70 20 150/70 H 05/04/23 23:39 98.0 F 70 20 150/70 H 93 L 05/05/23 00:00 99.6 F 88 18 149/69 H 92 L 05/04/23 21:39 98.5 F 91 H 42 H 180/81 H 93 L O2 Del Method 05/05/23 08:00 Room Air 05/05/23 01:30 Room Air 05/05/23 06:33 Room Air 05/05/23 04:00 Room Air 05/05/23 03:00 Room Air 05/05/23 01:00 Room Air 05/04/23 23:40 Room Air 05/04/23 23:39 Room Air 05/05/23 00:00 Room Air 05/04/23 21:39 Room Air Intake and Output 05/04/23 05/05/23 05/05/23 23:59 07:59 15:59 Intake Total 420 / 420 Output Total 0 / 0 0 / 0 Balance 0 / 420 420 / 420 Intake: Intake, Oral Amount 420 / 420 Output: Output, Urine Amount 0 / 0 0 / 0 Other: Number of Unmeasured Voids 1 1 Number of Bowel Movements 1 Weight 134.309 kg 134.309 kg 134.309 kg Patient Weight 05/05/23 23:59 Weight 134.309 kg Laboratory Results - last 24 hr 05/04/23 21:50: WBC 28.6 H*, RBC 4.41 L, Hgb 14.1, Hct 44.9, MCV 101.7 H, MCH 32.0 H, MCHC 31.4 L, RDW 13.9, Plt Count 241, MPV 8.6, Neut % (Auto) 92.2 H, Lymph % (Auto) 3.8 L, [place] % (Auto) 3.0, Eos % (Auto) 0.9, Baso % (Auto) 0.2, Neut # (Auto) 26.4 H, Lymph # (Auto) 1.1, [place] # (Auto) 0.9, Eos # (Auto) 0.3, Baso # (Auto) 0.1, Total Counted 100, Neutrophils % (Manual) 91 H, Lymphocytes % (Manual) 4 L, Monocytes % (Manual) 5, Platelet Estimate Normal, Macrocytosis 1+, Sodium 137, Potassium 4.3, Chloride 100, Carbon Dioxide 33 H, Anion Gap 8.3, BUN 22 H, Creatinine 1.10, Estimated Creat Clear 104, Estimated GFR 64, Est GFR ( Amer) 78, Glucose 240 H, Lactate 1.8, Calcium 9.2, Total Bilirubin 1.2, AST 27, ALT 21, Alkaline Phosphatase 53, Troponin I < 0.01, C-Reactive Protein 12.4 H, NT-Pro-B Natriuret Pep 431, Total Protein 7.0, Albumin 3.6, Globulin 3.4 H, Albumin/Globulin Ratio 1.1, Procalcitonin 0.056 05/04/23 23:00: SARS-CoV-2 (PCR) Not detected, Influenza A Untype (PCR) Not detected, Influenza Type B (PCR) Not detected 05/04/23 : Urine Color Yellow, Urine Appearance Clear, Urine pH 7.0, Ur Specific [place] 1.015, Urine Protein Trace, Urine Glucose (UA) 1+, Urine Ketones Negative, Urine Blood Negative, Urine Nitrate Negative, Urine Bilirubin Negative, Urine Urobilinogen >=8.0, Ur Leukocyte Esterase Negative, Urine RBC None, Urine WBC Occasional, Ur Squamous Epith Cells Occasional, Urine Bacteria None 05/05/23 01:30: Troponin I 0.03 05/05/23 04:38: WBC 34.0 H*, RBC 4.21 L, Hgb 13.5 L, Hct 42.1, MCV 100.0 H, MCH 32.1 H, MCHC 32.1, RDW 13.8, Plt Count 257, MPV 8.3, Neut % (Auto) 91.2 H, Lymph % (Auto) 4.3 L, [place] % (Auto) 3.1, Eos % (Auto) 1.2, Baso % (Auto) 0.2, Neut # (Auto) 31.0 H, Lymph # (Auto) 1.5, [place] # (Auto) 1.1 H, Eos # (Auto) 0.4, Baso # (Auto) 0.1, Sodium 136, Potassium 4.2, Chloride 101, Carbon Dioxide 35 H, Anion Gap 4.2 L, BUN 21 H, Creatinine 1.30 H, Estimated Creat Clear 85, Estimated GFR 53 L, Est GFR ( Amer) 64, Glucose 199 H, Calcium 9.0, Magnesium 1.6, Total Bilirubin 1.7 H, AST 22, ALT 19, Alkaline Phosphatase 53, Troponin I 0.04 H, Total Protein 6.5, Albumin 3.1 L D, Globulin 3.4 H, Albumin/Globulin Ratio 0.9 L I & O for Labs for Last 24 Hours: Intake & Output 05/02/23 05/03/23 05/04/23 05/05/23 23:59 23:59 23:59 23:59 Intake Total 420 / 420 Output Total 0 / 0 Balance 420 / 420 Weight 134.309 kg 134.309 kg Constitutional: Present no acute distress, obese and chronically ill appearing Head: Present atraumatic ENT: Present normal exam Neck: Present normal inspection Respiratory: Present normal respiratory effort; Absent rhonchi, wheezes or crackles Cardiac: Present Reg Rate and Rhythm GI: Present normal bowel sounds; Absent soft, distention or tenderness Extremities: Present normal inspection and full ROM Skin: Present intact; Absent erythema or rash Neuro: Present Grossly Intact, alert, awake, oriented x 3 and moves all extremities Assessment and Plan *Assessment and plan (1) Sepsis: Status: Acute Qualifiers: Sepsis acute organ dysfunction status: without acute organ dysfunction Sepsis type: sepsis due to unspecified organism Qualified Code(s): A41.9 - Sepsis, unspecified organism Category: Medical Code(s): A41.9 - Sepsis, unspecified organism (2) Right renal mass: Status: Acute Category: Medical Code(s): N28.89 - Other specified disorders of kidney and ureter (3) Tachypnea: Status: Acute Category: Medical Code(s): R06.82 - Tachypnea, not elsewhere classified (4) Leukocytosis: Status: Acute Qualifiers: Leukocytosis type: unspecified Qualified Code(s): D72.829 - Elevated white blood cell count, unspecified Category: Medical Code(s): D72.829 - Elevated white blood cell count, unspecified (5) Chills: Status: Acute Category: Medical Code(s): R68.83 - Chills (without fever) (6) HTN (hypertension): Status: Acute Qualifiers: Hypertension type: unspecified Qualified Code(s): I10 - Essential (primary) hypertension Category: Medical Code(s): I10 - Essential (primary) hypertension (7) Peripheral edema: Status: Acute Category: Medical Code(s): R60.0 - Localized edema Plan 82-year-old male with PMHx of HTN, HLD, apparently type 2 DM, very poor historian presents today with chills. at bedside contribute little to history. Patient states that he has been having chills that started the afternoon prior to admission. On arrival CXR does not showed focal consoliddation however bilateral lower atelectasis may mask. Patient has a severe leukocytosis of 28, tachypneic, objectively meet SIRS criteria. Patient has a suspected infection of possible bacteremia with shaking chills. Sepsis protocols initiated. BC drawn. Patient's white count remains elevated this morning. Afebrile however and clinically stable. Imaging obtained of chest abdomen and pelvis. Continues to require inpatient management for at least 48 hours of antibiotics while we have await culture results. Problems addressed as follows: -Suspected SIRS/sepsis presented with tachypnea and chills and leukocytosis: Patient remains afebrile. Continue vancomycin and cefepime. Continue to await culture results. Still is no clear source of infection. White cell count elevated at 34,[address] chest abdomen pelvis obtained. New finding of right renal mass. Highly suspicious for cancer. Repeat CBC, CMP, magnesium ordered for the morning. -History of hypertension: continue metoprolol 100 mg twice daily, continue lisinopril 10 mg daily, continue HCTZ 25 mg daily and Lasix 20 mg daily Continue levothyroxine 50 mcg daily for hypothyroid Continue sliding scale insulin fingersticks ACHS for diabetes, A1C pending Continue tamsulosin for BPH Lovenox for DVT prophylaxis Protonix Full code Diabetic diet
[2023-05-05 16:00] VITALS: BP 131/68; PULSE 67; RESP 20; TEMP 36.5; O2SAT 92
--- NOTE | 2023-05-05 16:32 | PC.NURSE ---
A&OX4. PT HAS TOLERATED RA WELL THUS FAR. RESPIRATIONS REGULAR AND UNLABORED. LUNG SOUNDS CLEAR THROUGHOUT. NO COUGH NOTED. NONPITTING EDEMA NOTED TO BLE. +1 PULSES NOTED THROUGHOUT. NO SKIN ISSUES NOTED. ACTIVE BOWEL SOUNDS HEARD IN ALL 4 QUADRANTS. SOFT AND NONTENDER. VOIDS PER BATHROOM WITH STANDBY ASSISTANCE. NO BM THUS FAR. PT RECEIVED TYLENOL ONCE THUS FAR FOR CHRONIC BACK PAIN. ON REASSESSMENT, PT DENIED ANY PAIN. 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 FAMILY HAS VISITED THROUGHOUT SHIFT. PT RECEIVED FLAGYL AND CEFEPIME ONCE THIS SHIFT AND TOLERATED WELL. HEART RATE REGULAR. CAP REFILL <3 SECONDS. BED IN LOWEST POSITION. CALL LIGHT WITHIN REACH. NO QUESTIONS OR CONCERNS VOICED. VSS.
[2023-05-05 20:00] VITALS: BP 142/92; PULSE 66; RESP 18; TEMP 36.7; O2SAT 94
[2023-05-05] MEDS: VANCOMYCIN HCL 2,000 MG in 0.9 % SODIUM CHLORIDE 250 ML 125 MG IV (21:07)
[2023-05-05] MEDS: ALPRAZolam 1MG TABLET 1 MG PO (22:18)
[2023-05-06] MEDS: METRONIDAZ/SOD CHL 500 MG/100 ML PIGGYBACK 100 MG IV ×3 (01:36→17:22)
[2023-05-06] MEDS: CEFEPIME HCL 2 GM in 0.9 % SODIUM CHLORIDE 100 ML IV (02:54)
[2023-05-06 04:00] VITALS: BP 146/63; PULSE 77; RESP 18; TEMP 36.8; O2SAT 94; BMI 39.2
--- NOTE | 2023-05-06 04:21 | PC.NURSE ---
pt is alert and oriented x4, and currently tolerating RA well. Pt has tolerated antibiotic therapy well. Pt is pleasant and has no complaints.
[2023-05-06 07:14] LABS: Basophils % 0.2 % (0.1-2.0); Eosinophils # 0.7 K/mm3 (0.0-0.4); Eosinophils % 2.9 % (0.1-12.0); Hematocrit 39.7 % (42.0-52.0); Hemoglobin 12.8 g/dL (14.1-18.0); Lymphocytes # 2.5 K/mm3 (0.7-4.5); Lymphocytes % 11.2 % (10-50); Mean Corpuscular HGB Conc 32.3 g/dL (31.8-35.4); Mean Corpuscular Hemoglobin 31.9 pg (27.0-31.2); Mean Corpuscular Volume 98.6 fl (80-94); Mean Platelet Volume 8.5 fl (7.4-10.4); Monocytes # 1.1 K/mm3 (0.1-1.0); Neutrophils # 18.1 K/mm3 (1.8-7.8); Neutrophils % 80.6 % (37.0-80.0); Platelet Count 208 K/mm3 (142-424); Red Blood Count 4.03 M/mm3 (4.60-6.20); White Blood Count 22.5 K/mm3 (4.8-10.8)
[2023-05-06 07:22] LABS: Chloride 101 mmol/L (98-107); Potassium 3.7 mmoL/L (3.5-5.1); Sodium 132 mmol/L (136-145)
[2023-05-06 07:25] LABS: Alanine Aminotransferase 18 U/L (12-78); Albumin/Globulin Ratio 0.9 (1.1-1.8); Alkaline Phosphatase 55 U/L (38-126); Anion Gap 6.7 mEq/L (5-15); Aspartate Amino Transferase 21 U/L (17-59); Bilirubin,Total 1.6 mg/dl (0.2-1.3); Blood Urea Nitrogen 20 mg/dl (9-20); Calcium 8.6 mg/dl (8.4-10.2); Carbon Dioxide 28 mmol/L (22.0-30.0); Creatinine Clearance Estimated 103 mL/min (50-200); Estimated Glomerular Filt Rate 64 ml/min (>60); GFR (African American) 78 ML/MIN (>60); Globulin 3.3 g/dL (1.3-3.2); Glucose 145 mg/dl (74-100); Magnesium 1.6 mg/dl (1.6-2.3); Total Protein,Serum 6.3 g/dl (6.3-8.2)
[2023-05-06 07:41] LABS: Hemoglobin A1C 7.3 % (4.0-6.0)
[2023-05-06 07:53] LABS: MANUAL DIFFERENTIAL MANUAL DIFFERENTIAL (MANUAL DIFF)
[2023-05-06 08:00] VITALS: BP 139/78; PULSE 85; RESP 18; TEMP 36.8; O2SAT 90
[2023-05-06] MEDS: CITALOPRAM 20MG TABLET 20 MG PO (09:20)
[2023-05-06] MEDS: ENOXAPARIN 40MG/0.4ML SYRINGE 40 MG SQ (09:20)
[2023-05-06] MEDS: LEVOTHYROXINE 50MCG (0.05MG) TAB 50 MCG PO (09:21)
[2023-05-06] MEDS: hydroCHLOROthiazide 25MG TABLET 25 MG PO (09:21)
[2023-05-06] MEDS: MAGNESIUM OXIDE 400MG TABLET 400 MG PO ×2 (09:21→20:47)
[2023-05-06] MEDS: PANTOPRAZOLE 40MG TABLET 40 MG PO (09:21)
[2023-05-06] MEDS: LISINOPRIL 10MG TABLET 10 MG PO (09:21)
[2023-05-06] MEDS: METOPROLOL TARTRATE 50MG TABLET 100 MG PO ×2 (09:21→20:47)
[2023-05-06 09:55] LABS: Eosinophils % 3 % (0-3); Lymphocytes % 13 % (10-50); Monocytes % 5 % (2-9); Neutrophils % 79 % (42-76); Platelet Estimate Normal; RBC Morphology Normal; Total Cells Counted 100
[2023-05-06] MEDS: humaLOG 100 UNITS/ML 3ML VIAL (SSI) SQ (10:54)
[2023-05-06] MEDS: levoFLOXacin 750 MG TABLET PO (11:01)
[2023-05-06 11:02] LABS: POC Glucose,Bedside 201 (70-110)
[2023-05-06 13:29] VITALS: BMI 39.2
[2023-05-06 14:19] LABS: Vancomycin,Trough 13.3 ug/mL (5.0-10.0)
--- NOTE | 2023-05-06 14:45 | P.CONPHA_ITS ---
Pharmacy Consult Date: 05/06/23 Time: 14:45 Referring provider: DR ELLISON Reason for Consult:: VANCOMYCIN TROUGH LEVEL OBTAINED Allergies Allergy/AdvReac Type Severity Reaction Status Date / Time No Known Allergies Allergy Verified 09/27/19 16:26 Home Medications Medication Instructions Recorded Confirmed Type alprazolam 1 mg tablet 1 mg PO HS Anxiety 05/04/23 05/05/23 History escitalopram oxalate 10 mg tablet 10 mg PO DAILY Mood 05/04/23 05/05/23 History furosemide 20 mg tablet 20 mg PO DAILYP PRN Swelling 05/04/23 05/05/23 History hydrochlorothiazide 25 mg tablet 25 mg PO DAILY Fluid 05/04/23 05/05/23 History levothyroxine 50 mcg tablet 50 mcg PO DAILY Thyroid 05/04/23 05/05/23 History linagliptin 5 mg tablet (Tradjenta) 5 mg PO DAILY Diabetes 05/04/23 05/05/23 History lisinopril 10 mg tablet 10 mg PO DAILY High Blood Pressure 05/04/23 05/05/23 History metoprolol tartrate 100 mg tablet 100 mg PO BID High Blood Pressure 05/04/23 05/05/23 History tamsulosin 0.4 mg capsule 0.4 mg PO DAILY Prostate 05/04/23 05/05/23 History tramadol 50 mg tablet 50 mg PO BIDP PRN Moderate Pain 05/04/23 05/05/23 History (Scale Score 5-6) New Prescriptions to Start Prescriptions: Height: 1.88 m Weight: 138.709 kg Laboratory Results:: Laboratory Results - last 24 hr 05/06/23 06:59: WBC 22.5 H* D, RBC 4.03 L, Hgb 12.8 L, Hct 39.7 L, MCV 98.6 H, MCH 31.9 H, MCHC 32.3, RDW 14.0, Plt Count 208, MPV 8.5, Neut % (Auto) 80.6 H, Lymph % (Auto) 11.2, [place] % (Auto) 5.0, Eos % (Auto) 2.9, Baso % (Auto) 0.2, Neut # (Auto) 18.1 H, Lymph # (Auto) 2.5, [place] # (Auto) 1.1 H, Eos # (Auto) 0.7 H, Baso # (Auto) 0.0, Total Counted 100, Neutrophils % (Manual) 79 H, Lymphocytes % (Manual) 13, Monocytes % (Manual) 5, Eosinophils % (Manual) 3, Platelet Estimate Normal, RBC Morphology Normal, Sodium 132 L, Potassium 3.7, Chloride 101, Carbon Dioxide 28, Anion Gap 6.7, BUN 20, Creatinine 1.10, Estimated Creat Clear 103, Estimated GFR 64, Est GFR ( Amer) 78 D, Glucose 145 H, Hemoglobin A1c 7.3 H, Calcium 8.6, Magnesium 1.6, Total Bilirubin 1.6 H, AST 21, ALT 18, Alkaline Phosphatase 55, Total Protein 6.3, Albumin 3.0 L , Globulin 3.3 H, Albumin/Globulin Ratio 0.9 L 05/06/23 10:50: POC Glucose 201 H 05/06/23 13:50: Vancomycin Trough 13.3 H Assessment and Plan Assessment and plan all Dx Assessment and Plan for all problems:: VANCOMYCIN TROUGH LEVEL OBTAINED. VANCOMYCIN TROUGH = 13.3 MCG/ML (05/06/23 13:50) RECOMMEND CONTINUING VANCOMYCIN 2000 MG Q18H.
[2023-05-06] MEDS: VANCOMYCIN HCL 2,000 MG in 0.9 % SODIUM CHLORIDE 250 ML 125 MG IV (15:06)
--- NOTE | 2023-05-06 15:29 | P.PN_ITS ---
Subjective *Date: 05/06/23 *Time: 17:02 Interval history: No chest pain or shortness of breath. Requesting to go home today as he is feeling better. Explained that there is still no source of infection and need negative cultures prior to transitioning to oral regimen to discharge home. Stable on room air. Afebrile. Chills have resolved. Tolerating p.o. intake Medical Exam Vital signs and Labs for Last 24 Hours: Vital Signs Temp Pulse Resp BP Pulse Ox O2 Del Method 05/06/23 12:49 Room Air 05/06/23 11:00 Room Air 05/06/23 09:00 Room Air 05/06/23 09:09 Room Air 05/06/23 08:00 98.2 F 85 18 139/78 90 L Room Air 05/06/23 06:53 Room Air 05/06/23 04:00 98.2 F 77 18 146/63 H 94 L Room Air 05/06/23 05:00 Room Air 05/06/23 03:00 Room Air 05/05/23 20:00 98.1 F 66 18 142/92 H 94 L Room Air 05/06/23 01:00 Room Air 05/05/23 23:00 Room Air 05/05/23 21:00 Room Air 05/05/23 20:00 Room Air 05/05/23 18:34 Room Air 05/05/23 16:00 97.7 F 67 20 131/68 92 L Room Air 05/05/23 17:15 Room Air Intake and Output 05/05/23 05/06/23 05/06/23 23:59 07:59 15:59 Intake Total 340 / 0 490 / 1030 540 / 1030 Output Total 0 / 0 0 / 0 Balance 340 / 2050 490 / 1030 540 / 1030 Intake: Intake, Oral Amount 240 / 1500 240 / 780 540 / 780 Intake, Total IV Amount 100 / 550 250 / 250 Metronidaz/Sod Chl 500 mg In 100 / 200 100 ml @ 100 mls/hr IV Q8H [facility] Rx#:[id number] Vancomycin HCl 2,000 mg In 0.9 250 / 250 % Sodium Chloride 250 ml @ 125 mls/hr IV Q18H [facility]INDER Rx#:[id number] Output: Output, Urine Amount 0 / 0 0 / 0 Other: Number of Voids 0 Number of Unmeasured Voids 1 Weight 138.709 kg 138.709 kg Patient Weight 05/06/23 23:59 Weight 138.709 kg Laboratory Results - last 24 hr 05/06/23 06:59: WBC 22.5 H* D, RBC 4.03 L, Hgb 12.8 L, Hct 39.7 L, MCV 98.6 H, MCH 31.9 H, MCHC 32.3, RDW 14.0, Plt Count 208, MPV 8.5, Neut % (Auto) 80.6 H, Lymph % (Auto) 11.2, [place] % (Auto) 5.0, Eos % (Auto) 2.9, Baso % (Auto) 0.2, Neut # (Auto) 18.1 H, Lymph # (Auto) 2.5, [place] # (Auto) 1.1 H, Eos # (Auto) 0.7 H, Baso # (Auto) 0.0, Total Counted 100, Neutrophils % (Manual) 79 H, Lymphocytes % (Manual) 13, Monocytes % (Manual) 5, Eosinophils % (Manual) 3, Platelet Estimate Normal, RBC Morphology Normal, Sodium 132 L, Potassium 3.7, Chloride 101, Carbon Dioxide 28, Anion Gap 6.7, BUN 20, Creatinine 1.10, Estimated Creat Clear 103, Estimated GFR 64, Est GFR ( Amer) 78 D, Glucose 145 H, Hemoglobin A1c 7.3 H, Calcium 8.6, Magnesium 1.6, Total Bilirubin 1.6 H, AST 21, ALT 18, Alkaline Phosphatase 55, Total Protein 6.3, Albumin 3.0 L , Globulin 3.3 H, Albumin/Globulin Ratio 0.9 L 05/06/23 10:50: POC Glucose 201 H 05/06/23 13:50: Vancomycin Trough 13.3 H I & O for Labs for Last 24 Hours: Intake & Output 05/03/23 05/04/23 05/05/23 05/06/23 23:59 23:59 23:59 23:59 Intake Total 1559 1030 / 1030 Output Total 0 / 0 0 / 0 Balance 1559 1030 / 1030 Weight 134.309 kg 134.309 kg 138.709 kg Constitutional: Present no acute distress, obese and chronically ill appearing Head: Present atraumatic ENT: Present normal exam Neck: Present normal inspection Respiratory: Present normal respiratory effort; Absent rhonchi, wheezes or crackles Cardiac: Present Reg Rate and Rhythm GI: Present normal bowel sounds; Absent soft, distention or tenderness Extremities: Present normal inspection and full ROM Skin: Present intact; Absent erythema or rash Neuro: Present Grossly Intact, alert, awake, oriented x 3 and moves all extremities Assessment and Plan *Assessment and plan (1) Sepsis: Status: Acute Qualifiers: Sepsis acute organ dysfunction status: without acute organ dysfunction Sepsis type: sepsis due to unspecified organism Qualified Code(s): A41.9 - Sepsis, unspecified organism Category: Medical Code(s): A41.9 - Sepsis, unspecified organism (2) Right renal mass: Status: Acute Category: Medical Code(s): N28.89 - Other specified disorders of kidney and ureter (3) Tachypnea: Status: Acute Category: Medical Code(s): R06.82 - Tachypnea, not elsewhere classified (4) Leukocytosis: Status: Acute Qualifiers: Leukocytosis type: unspecified Qualified Code(s): D72.829 - Elevated white blood cell count, unspecified Category: Medical Code(s): D72.829 - Elevated white blood cell count, unspecified (5) Chills: Status: Acute Category: Medical Code(s): R68.83 - Chills (without fever) (6) HTN (hypertension): Status: Acute Qualifiers: Hypertension type: unspecified Qualified Code(s): I10 - Essential (primary) hypertension Category: Medical Code(s): I10 - Essential (primary) hypertension (7) Peripheral edema: Status: Acute Category: Medical Code(s): R60.0 - Localized edema Plan 82-year-old male with PMHx of HTN, HLD, apparently type 2 DM, very poor historia n presents today with chills. at bedside contribute little to history. Patient states that he has been having chills that started the afternoon prior to admission. On arrival CXR does not showed focal consoliddation however bilateral lower atelectasis may mask. Patient has a severe leukocytosis of 28, tachypneic, objectively meet SIRS criteria. Patient has a suspected infection of possible bacteremia with shaking chills. Sepsis protocols initiated. BC drawn. Patient's white count remains elevated this morning. Afebrile however and clinically stable. Imaging obtained of chest abdomen and pelvis. Continues to require inpatient management for at least 48 hours of antibiotics while we have await culture results. Problems addressed as follows: -Suspected SIRS/sepsis presented with tachypnea and chills and leukocytosis: Patient remains afebrile. Continue vancomycin, transition to levofloxacin 750mg daily for ease of transition to oral regimen. Continue to await culture results. Still is no clear source of infection. White cell count improved today to 22,000. CT chest abdomen pelvis obtained. New finding of right renal mass. Highly suspicious for cancer. Repeat CBC, CMP, magnesium ordered for the morning. -History of hypertension: continue metoprolol 100 mg twice daily, continue lisinopril 10 mg daily, continue HCTZ 25 mg daily and Lasix 20 mg daily Continue levothyroxine 50 mcg daily for hypothyroid Continue sliding scale insulin fingersticks ACHS for diabetes, A1C pending Continue tamsulosin for BPH Lovenox for DVT prophylaxis Protonix Full code Diabetic diet
[2023-05-06 16:00] VITALS: BP 148/68; PULSE 73; RESP 20; TEMP 36.6; O2SAT 94
[2023-05-06 16:23] LABS: POC Glucose,Bedside 136 (70-110)
--- NOTE | 2023-05-06 16:44 | PC.NURSE ---
A&OX4. TOLERATING RA WELL. PT HAS BEEN UP TO BATHROOM WITH STANDBY ASSIST. TOLERATING WELL. PT HAS HAD NO C/O THUS FAR THIS SHIFT. IN GOOD SPIRITS. FAMILY REMAINS AT BEDSIDE T/O SHIFT. NEW IV PLACED, PT TOLERATED WELL. VSS.
[2023-05-06 20:40] VITALS: BP 120/62; PULSE 74; RESP 16; TEMP 36.6; O2SAT 97
--- NOTE | 2023-05-06 20:45 | PC.NURSE ---
redness, 3+ edema, and warmth noted to the lower left extremity - pt states its not hurting but he did notice tenderness
[2023-05-06] MEDS: ALPRAZolam 1MG TABLET 1 MG PO (20:47)
[2023-05-06] MEDS: TAMSULOSIN 0.4MG CAPSULE 0.400000000000000022 MG PO (20:47)
[2023-05-06] MEDS: MELATONIN 5MG TABLET 10 MG PO (20:47)
[2023-05-07] VITALS: BP 125/63; PULSE 73; RESP 18; TEMP 36.6; O2SAT 88
[2023-05-07] MEDS: METRONIDAZ/SOD CHL 500 MG/100 ML PIGGYBACK 100 MG IV ×3 (01:27→17:39)
[2023-05-07] MEDS: GUAIFENESIN/DEXTROMETHORPHAN 200MG/20MG 10ML UDC 10 ML PO (01:30)
[2023-05-07 04:00] VITALS: BP 143/71; PULSE 68; RESP 20; TEMP 36.7; O2SAT 87; BMI 39.2
[2023-05-07] MEDS: humaLOG 100 UNITS/ML 3ML VIAL (SSI) SQ ×3 (05:23→20:29)
[2023-05-07 05:31] LABS: POC Glucose,Bedside 172 (70-110)
[2023-05-07] MEDS: LEVOTHYROXINE 50MCG (0.05MG) TAB 50 MCG PO (06:34)
[2023-05-07 07:07] LABS: Peripheral Smear Review Scanned Result
[2023-05-07 08:00] VITALS: BP 144/74; PULSE 61; RESP 19; TEMP 36.5; O2SAT 91
[2023-05-07] MEDS: CITALOPRAM 20MG TABLET 20 MG PO (08:16)
[2023-05-07] MEDS: hydroCHLOROthiazide 25MG TABLET 25 MG PO (08:17)
[2023-05-07] MEDS: PANTOPRAZOLE 40MG TABLET 40 MG PO (08:17)
[2023-05-07] MEDS: METOPROLOL TARTRATE 50MG TABLET 100 MG PO ×2 (08:17→20:28)
[2023-05-07] MEDS: MAGNESIUM OXIDE 400MG TABLET 400 MG PO ×2 (08:17→20:28)
[2023-05-07] MEDS: ENOXAPARIN 40MG/0.4ML SYRINGE 40 MG SQ (08:17)
[2023-05-07] MEDS: LISINOPRIL 10MG TABLET 10 MG PO (08:17)
[2023-05-07] MEDS: VANCOMYCIN HCL 2,000 MG in 0.9 % SODIUM CHLORIDE 250 ML 125 MG IV (08:17)
[2023-05-07 09:31] LABS: Chloride 99 mmol/L (98-107); Potassium 3.9 mmoL/L (3.5-5.1); Sodium 133 mmol/L (136-145)
[2023-05-07 09:34] LABS: Alanine Aminotransferase 18 U/L (12-78); Albumin Level 2.9 g/dl (3.5-5.0); Albumin/Globulin Ratio 0.9 (1.1-1.8); Alkaline Phosphatase 50 U/L (38-126); Anion Gap 6.9 mEq/L (5-15); Aspartate Amino Transferase 20 U/L (17-59); Bilirubin,Total 1.2 mg/dl (0.2-1.3); Blood Urea Nitrogen 17 mg/dl (9-20); Carbon Dioxide 31 mmol/L (22.0-30.0); Creatinine Clearance Estimated 114 mL/min (50-200); Estimated Glomerular Filt Rate 72 ml/min (>60); GFR (African American) 87 ML/MIN (>60); Globulin 3.3 g/dL (1.3-3.2); Total Protein,Serum 6.2 g/dl (6.3-8.2)
[2023-05-07 09:35] LABS: Basophils % 0.1 % (0.1-2.0); Calcium 8.5 mg/dl (8.4-10.2); Eosinophils # 0.7 K/mm3 (0.0-0.4); Glucose 245 mg/dl (74-100); Hemoglobin 12.6 g/dL (14.1-18.0); Lymphocytes # 2.3 K/mm3 (0.7-4.5); Lymphocytes % 15.9 % (10-50); Mean Corpuscular HGB Conc 37.2 g/dL (31.8-35.4); Mean Corpuscular Volume 99.5 fl (80-94); Mean Platelet Volume 8.8 fl (7.4-10.4); Monocytes % 6.8 % (1.7-9.3); Neutrophils # 10.6 K/mm3 (1.8-7.8); Neutrophils % 72.1 % (37.0-80.0); Platelet Count 209 K/mm3 (142-424); Red Blood Count 3.41 M/mm3 (4.60-6.20); Red Cell Distribution Width 13.8 % (11.5-17.5); White Blood Count 14.7 K/mm3 (4.8-10.8)
[2023-05-07 09:42] LABS: Magnesium 1.7 mg/dl (1.6-2.3)
[2023-05-07] MEDS: levoFLOXacin 750 MG TABLET PO (11:42)
[2023-05-07 11:56] LABS: POC Glucose,Bedside 210 (70-110)
[2023-05-07 12:00] VITALS: BP 137/54; PULSE 56; RESP 19; TEMP 36.6; O2SAT 90
--- NOTE | 2023-05-07 13:47 | EXP.ACUTE.PN ---
Subjective *Date: 05/07/23 *Time: 13:47 Interval history: Patient feeling better. No fever or chills since admission. No nausea or vomiting. Tolerating p.o. intake. Sitting at bedside on exam. On room air. Having some swelling in his left leg. Medical Exam Vital signs and Labs for Last 24 Hours: Vital Signs Temp Pulse Resp BP Pulse Ox O2 Del Method 05/07/23 09:00 Room Air 05/07/23 09:02 Room Air 05/07/23 08:00 97.7 F 61 19 144/74 H 91 L Room Air 05/07/23 04:00 98.0 F 68 20 143/71 H 87 L Room Air 05/07/23 06:24 Room Air 05/07/23 05:00 Room Air 05/07/23 02:25 Room Air 05/07/23 01:00 Room Air 05/07/23 00:00 97.9 F 73 18 125/63 88 L Room Air 05/06/23 23:00 Room Air 05/06/23 21:00 Room Air 05/06/23 20:00 Room Air 05/06/23 20:40 97.9 F 74 16 120/62 97 Room Air 05/06/23 18:48 Room Air 05/06/23 16:00 97.8 F 73 20 148/68 H 94 L Room Air 05/06/23 16:37 Room Air 05/06/23 15:00 Room Air Intake and Output 05/06/23 05/07/23 05/07/23 23:59 07:59 15:59 Intake Total 540 / 1930 830 / 1250 420 / 1250 Output Total 0 / 0 Balance 540 / 1930 830 / 1250 420 / 1250 Intake: Intake, Oral Amount 540 / 1680 720 / 1140 420 / 1140 Intake, Other Amount Intake, Total IV Amount 100 / 100 Metronidaz/Sod Chl 500 mg In 100 / 100 100 ml @ 100 mls/hr IV Q8H [facility] Rx#:[id number] Output: Output, Urine Amount 0 / 0 Other: Intake, Other Source Saline Solution Number of Voids 2 1 Number of Unmeasured Voids 2 1 1 Weight 138.709 kg Patient Weight 05/07/23 23:59 Weight 138.709 kg Laboratory Results - last 24 hr 05/06/23 13:50: Vancomycin Trough 13.3 H 05/06/23 16:16: POC Glucose 136 H 05/06/23 19:13: Vancomycin Peak 22.0 05/07/23 05:22: POC Glucose 172 H 05/07/23 08:45: WBC 14.7 H D, RBC 3.41 L, Hgb 12.6 L, Hct 34.0 L, MCV 99.5 H, MCH 37.0 H, MCHC 37.2 H, RDW 13.8, Plt Count 209, MPV 8.8, Neut % (Auto) 72.1, Lymph % (Auto) 15.9, [place] % (Auto) 6.8, Eos % (Auto) 5.0, Baso % (Auto) 0.1, Neut # (Auto) 10.6 H, Lymph # (Auto) 2.3, [place] # (Auto) 1.0, Eos # (Auto) 0.7 H, Baso # (Auto) 0.0, Sodium 133 L, Potassium 3.9, Chloride 99, Carbon Dioxide 31 H, Anion Gap 6.9, BUN 17, Creatinine 1.00, Estimated Creat Clear 114, Estimated GFR 72, Est GFR ( Amer) 87, Glucose 245 H, Calcium 8.5, Magnesium 1.7, Total Bilirubin 1.2, AST 20, ALT 18, Alkaline Phosphatase 50, Total Protein 6.2 L, Albumin 2.9 L, Globulin 3.3 H, Albumin/Globulin Ratio 0.9 L 05/07/23 11:44: POC Glucose 210 H I & O for Labs for Last 24 Hours: Intake & Output 05/04/23 05/05/23 05/06/23 05/07/23 23:59 23:59 23:59 23:59 Intake Total 1559 1250 / 1250 Output Total 0 / 0 0 / 0 0 / 0 Balance 1559 1250 / 1250 Weight 134.309 kg 134.309 kg 138.709 kg 138.709 kg Microbiology Reports for the Last 24 Hours: Microbiology 05/04/23 23:31 Blood Blood Culture - Preliminary 05/04/23 23:15 Blood Blood Culture - Preliminary Constitutional: Present no acute distress, obese and chronically ill appearing Head: Present atraumatic ENT: Present normal exam Neck: Present normal inspection Respiratory: Present normal respiratory effort; Absent rhonchi, wheezes or crackles Cardiac: Present Reg Rate and Rhythm GI: Present normal bowel sounds; Absent soft, distention or tenderness Extremities: Present normal inspection, full ROM and edema (2+ left lower extremity to mid bauer) Skin: Present intact; Absent erythema or rash Neuro: Present Grossly Intact, alert, awake, oriented x 3 and moves all extremities Assessment and Plan *Assessment and plan (1) Sepsis: Status: Acute Qualifiers: Sepsis acute organ dysfunction status: without acute organ dysfunction Sepsis type: sepsis due to unspecified organism Qualified Code(s): A41.9 - Sepsis, unspecified organism Category: Medical Code(s): A41.9 - Sepsis, unspecified organism (2) Bacteremia: Status: Acute Category: Medical Code(s): R78.81 - Bacteremia (3) Right renal mass: Status: Acute Category: Medical Code(s): N28.89 - Other specified disorders of kidney and ureter (4) Tachypnea: Status: Acute Category: Medical Code(s): R06.82 - Tachypnea, not elsewhere classified (5) Leukocytosis: Status: Acute Qualifiers: Leukocytosis type: unspecified Qualified Code(s): D72.829 - Elevated white blood cell count, unspecified Category: Medical Code(s): D72.829 - Elevated white blood cell count, unspecified (6) Chills: Status: Acute Category: Medical Code(s): R68.83 - Chills (without fever) (7) HTN (hypertension): Status: Acute Qualifiers: Hypertension type: unspecified Qualified Code(s): I10 - Essential (primary) hypertension Category: Medical Code(s): I10 - Essential (primary) hypertension (8) Peripheral edema: Status: Acute Category: Medical Code(s): R60.0 - Localized edema Plan 82-year-old male with PMHx of HTN, HLD, apparently type 2 DM, very poor historian presents today with chills. at bedside contribute little to history. Patient states that he has been having chills that started the afternoon prior to admission. On arrival CXR does not showed focal consoliddation however bilateral lower atelectasis may mask. Patient has a severe leukocytosis of 28, tachypneic, objectively meet SIRS criteria. Patient has a suspected infection of possible bacteremia with shaking chills. Sepsis protocols initiated. BC drawn. Blood cultures returned positive for gram-positive cocci in all 4 bottles. Clinically improving. Remains afebrile. Continues to require inpatient management and IV antibiotics. Repeat cultures obtained today. Problems addressed as follows: -Suspected SIRS/sepsis presented with tachypnea and chills and leukocytosis: -Gram-positive bacteremia Patient remains afebrile. Continue vancomycin, and levofloxacin 750mg daily for ease of transition to oral regimen. Blood cultures positive for gram-positive cocci in all 4 bottles. Repeat cultures obtained today. Strong concern for staph bacteremia, still unclear on initial source. White cell count 14k CBC, CMP, magnesium ordered for the morning. Will add inflammatory markers with CRP and ESR Patient will need negative blood cultures prior to establishing definitive time course for antibiotics and appropriate regimen. CT chest abdomen pelvis obtained. New finding of right renal mass. Highly suspicious for cancer. Will refer to urology as outpatient for further management -History of hypertension: continue metoprolol 100 mg twice daily, continue lisinopril 10 mg daily, continue HCTZ 25 mg daily; Lasix 40 mg IV daily starting today Continue levothyroxine 50 mcg daily for hypothyroid Continue sliding scale insulin fingersticks ACHS for diabetes, A1C pending Continue tamsulosin for BPH Lovenox for DVT prophylaxis Protonix Full code Diabetic diet
[2023-05-07] MEDS: FUROSEMIDE 40MG/4ML VIAL 40 MG IV (15:23)
[2023-05-07 17:13] LABS: POC Glucose,Bedside 141 (70-110)
[2023-05-07 19:42] VITALS: BP 132/64; PULSE 63; RESP 18; O2SAT 93
[2023-05-07 20:00] VITALS: BP 129/76; PULSE 60; RESP 20; TEMP 36.6; O2SAT 91
[2023-05-07] MEDS: TAMSULOSIN 0.4MG CAPSULE 0.400000000000000022 MG PO (20:28)
[2023-05-07] MEDS: MELATONIN 5MG TABLET 10 MG PO (20:29)
[2023-05-07] MEDS: ALPRAZolam 1MG TABLET 1 MG PO (20:29)
[2023-05-07 22:01] LABS: POC Glucose,Bedside 172 (70-110)
[2023-05-08] VITALS: BP 107/46; PULSE 64; RESP 20; TEMP 36.6; O2SAT 90
[2023-05-08] MEDS: METRONIDAZ/SOD CHL 500 MG/100 ML PIGGYBACK 100 MG IV ×3 (01:38→17:00)
[2023-05-08] MEDS: VANCOMYCIN HCL 2,000 MG in 0.9 % SODIUM CHLORIDE 250 ML 125 MG IV ×2 (02:47→20:38)
[2023-05-08 04:00] VITALS: BP 122/65; PULSE 62; RESP 20; TEMP 36.5; O2SAT 92; BMI 38.5
[2023-05-08] MEDS: humaLOG 100 UNITS/ML 3ML VIAL (SSI) SQ ×4 (05:14→22:12)
[2023-05-08 05:23] LABS: POC Glucose,Bedside 170 (70-110)
--- NOTE | 2023-05-08 06:00 | CA_ITS ---
APPROVED REPORT EXAM: Comprehensive 2D, Doppler, and color-flow Echocardiogram [employer] Supervisor: Sindy Horn RDCS Ht: 6 ft 2 in Wt: 305lbs BSA: 2.60 BP: 144/74 mmHg Indications: ENDOCARDITIS M-Mode Dimensions RVDd 1.97 cm (0.9-2.6) LA Diam 5.45 cm (1.9-4.0) LVDd 5.12 cm (3.5-5.7) LVDs 4.07 cm (3.5-5.7) IVSd 0.97 cm (0.6-1.1) PWd 0.81 cm (0.6-1.1) EF (Teich) 41.60% FS 20.50% EDV (Teich) 124.90 mL ESV (Teich) 72.90 mL LV Diastology E Decel Time 283 (160-240 msec) E/A Ratio 0.9 Aortic Valve KYARA Index 0.76 cm2/m2 AoV Peak Sergio. 193.0 (50-130 cm/s) AO Peak GR. 14.90 mmHg AO Mean GR. 7.30 (<5 mmHg) AO VTI 41.8 (18-25 cm) KYARA (VTI) 2.03 (2.5-4.5 cm2) Mitral Valve MV E Max Sergio. 97.0 (40-130 cm/s) MV A Velocity 105.0 (40-130 cm/s) E/A Ratio 0.92 MV PHT 83.0 ms Left Ventricle The left ventricle is normal size. The left ventricular systolic function is normal. The left ventricular ejection fraction is within the normal range. There is increased LV wall thickness. There is normal LV segmental wall motion. The left ventricular diastolic function is normal. LVEF is 55%. Right Ventricle The right ventricle is mildly dilated. Right ventricle is mildly hypokinetic. Atria The left atrium size is normal. The right atrium size is normal. The interatrial septum is not well-visualized. Aortic Valve The aortic valve is mildly thickened. There is focal nodular thickening noted on the right coronary cusp. Aortic sclerosis, but no evidence of aortic stenosis. Trace aortic regurgitation. Mitral Valve The mitral valve leaflets are mildly thickened. No evidence of mitral valve stenosis. Mild mitral regurgitation. Tricuspid Valve The tricuspid valve leaflets are thin and pliable. Trace tricuspid regurgitation. There is insufficient TR jet to estimate RVSP. Pulmonic Valve The pulmonic valve is not well-visualized. Great Vessels The aortic root is normal in size. The ascending aorta is not well-visualized. The IVC is not well-visualized. Pericardium There is no pericardial effusion. Other Information Study Quality: Fair Conclusion Normal LV systolic function. Mildly dilated RV with mild reduction in RV function. Mild MR. Nodular thickening of the right coronary cusp of the aortic valve. No evidence of aortic stenosis. If there is clinical concern for active endocarditis, this TTE does not entirely rule out vegetations. Further evaluation with KEN is recommended, if clinically indicated. Electronically signed by : Nereyda Cameron MD 05/09/2023 11:24:21
[2023-05-08 07:14] LABS: Basophils % 0.2 % (0.1-2.0); Eosinophils # 0.7 K/mm3 (0.0-0.4); Eosinophils % 5.3 % (0.1-12.0); Hematocrit 38.4 % (42.0-52.0); Hemoglobin 12.4 g/dL (14.1-18.0); Lymphocytes # 2.7 K/mm3 (0.7-4.5); Lymphocytes % 19.4 % (10-50); Mean Corpuscular HGB Conc 32.3 g/dL (31.8-35.4); Mean Corpuscular Hemoglobin 32.2 pg (27.0-31.2); Mean Corpuscular Volume 99.8 fl (80-94); Mean Platelet Volume 8.5 fl (7.4-10.4); Monocytes # 1.1 K/mm3 (0.1-1.0); Monocytes % 8.1 % (1.7-9.3); Neutrophils # 9.3 K/mm3 (1.8-7.8); Neutrophils % 67.1 % (37.0-80.0); Platelet Count 231 K/mm3 (142-424); Red Blood Count 3.85 M/mm3 (4.60-6.20); Red Cell Distribution Width 13.8 % (11.5-17.5); White Blood Count 13.8 K/mm3 (4.8-10.8)
--- NOTE | 2023-05-08 07:45 | P.PN_ITS ---
Subjective *Date: 05/08/23 *Time: 07:45 Medical Exam Vital signs and Labs for Last 24 Hours: Vital Signs Temp Pulse Resp BP Pulse Ox O2 Del Method 05/08/23 04:00 97.7 F 62 20 122/65 92 L Room Air 05/08/23 02:52 Room Air 05/08/23 01:00 Room Air 05/08/23 00:00 97.9 F 64 20 107/46 L 90 L Room Air 05/07/23 23:00 Room Air 05/07/23 20:00 97.9 F 60 20 129/76 91 L Room Air 05/07/23 21:00 Room Air 05/08/23 06:20 Room Air 05/08/23 05:00 Room Air 05/07/23 20:00 Room Air 05/07/23 19:42 63 18 132/64 93 L Room Air 05/07/23 12:00 97.8 F 56 L 19 137/54 L 90 L Room Air 05/07/23 16:35 Room Air 05/07/23 15:00 Room Air 05/07/23 13:00 Room Air 05/07/23 11:00 Room Air 05/07/23 09:00 Room Air 05/07/23 09:02 Room Air 05/07/23 08:00 97.7 F 61 19 144/74 H 91 L Room Air Intake and Output 05/07/23 05/07/23 05/08/23 15:59 23:59 07:59 Intake Total 420 / 1490 240 / 1490 Output Total 0 / 0 0 / 0 Balance 420 / 1490 240 / 1490 0 / 0 Intake: Intake, Oral Amount 420 / 1380 240 / 1380 Output: Output, Urine Amount 0 / 0 0 / 0 Other: Number of Voids 1 Number of Unmeasured Voids 1 1 1 Weight 136.305 kg Patient Weight 05/08/23 23:59 Weight 136.305 kg Laboratory Results - last 24 hr 05/07/23 08:45: WBC 14.7 H D, RBC 3.41 L, Hgb 12.6 L, Hct 34.0 L, MCV 99.5 H, MCH 37.0 H, MCHC 37.2 H, RDW 13.8, Plt Count 209, MPV 8.8, Neut % (Auto) 72.1, Lymph % (Auto) 15.9, [place] % (Auto) 6.8, Eos % (Auto) 5.0, Baso % (Auto) 0.1, Neut # (Auto) 10.6 H, Lymph # (Auto) 2.3, [place] # (Auto) 1.0, Eos # (Auto) 0.7 H, Baso # (Auto) 0.0, Sodium 133 L, Potassium 3.9, Chloride 99, Carbon Dioxide 31 H , Anion Gap 6.9, BUN 17, Creatinine 1.00, Estimated Creat Clear 114, Estimated GFR 72, Est GFR ( Amer) 87, Glucose 245 H, Calcium 8.5, Magnesium 1.7, Total Bilirubin 1.2, AST 20, ALT 18, Alkaline Phosphatase 50, Total Protein 6.2 L, Albumin 2.9 L, Globulin 3.3 H, Albumin/Globulin Ratio 0.9 L 05/07/23 11:44: POC Glucose 210 H 05/07/23 17:03: POC Glucose 141 H 05/07/23 20:25: POC Glucose 172 H 05/08/23 05:13: POC Glucose 170 H 05/08/23 06:45: WBC 13.8 H, RBC 3.85 L, Hgb 12.4 L, Hct 38.4 L, MCV 99.8 H, MCH 32.2 H, MCHC 32.3, RDW 13.8, Plt Count 231, MPV 8.5, Neut % (Auto) 67.1, Lymph % (Auto) 19.4, [place] % (Auto) 8.1, Eos % (Auto) 5.3, Baso % (Auto) 0.2, Neut # (Auto) 9.3 H, Lymph # (Auto) 2.7, [place] # (Auto) 1.1 H, Eos # (Auto) 0.7 H, Baso # (Auto) 0.0 I & O for Labs for Last 24 Hours: Intake & Output 05/05/23 05/06/23 05/07/23 05/08/23 23:59 23:59 23:59 23:59 Intake Total 1559 1490 / 1490 Output Total 0 / 0 0 / 0 0 / 0 0 / 0 Balance 1559 149 1490 0 / 0 Weight 134.309 kg 138.709 kg 138.709 kg 136.305 kg Microbiology Reports for the Last 24 Hours: Microbiology 05/04/23 23:31 Blood Blood Culture - Preliminary 05/04/23 23:15 Blood Blood Culture - Preliminary The patient's infection will respond to the chosen ABx?: Yes Is the patient receiving the right drug, dose, and route?: Yes Could a more targeted ABx be ordered?: No (WBC DECREASED, BLD CX(+) FOR GRAM + COCCI X2)
[2023-05-08] MEDS: LEVOTHYROXINE 50MCG (0.05MG) TAB 50 MCG PO (07:46)
[2023-05-08 07:59] LABS: Erythrocyte Sedimentation Rate 33 mm/hr (0-20)
[2023-05-08 08:00] VITALS: BP 127/73; PULSE 58; RESP 19; TEMP 36.6; O2SAT 94
[2023-05-08] MEDS: PANTOPRAZOLE 40MG TABLET 40 MG PO (08:20)
[2023-05-08] MEDS: MAGNESIUM OXIDE 400MG TABLET 400 MG PO ×2 (08:20→21:45)
[2023-05-08] MEDS: CITALOPRAM 20MG TABLET 20 MG PO (08:20)
[2023-05-08] MEDS: LISINOPRIL 10MG TABLET 10 MG PO (08:20)
[2023-05-08] MEDS: hydroCHLOROthiazide 25MG TABLET 25 MG PO (08:20)
[2023-05-08] MEDS: ENOXAPARIN 40MG/0.4ML SYRINGE 40 MG SQ (08:20)
[2023-05-08] MEDS: ACETAMINOPHEN 325MG TAB 650 MG PO (08:20)
[2023-05-08] MEDS: METOPROLOL TARTRATE 50MG TABLET 100 MG PO ×2 (08:21→21:44)
[2023-05-08 08:27] LABS: Chloride 98 mmol/L (98-107)
[2023-05-08 08:28] LABS: Potassium 3.8 mmoL/L (3.5-5.1); Sodium 134 mmol/L (136-145)
[2023-05-08 08:30] LABS: Alanine Aminotransferase 14 U/L (12-78); Alkaline Phosphatase 50 U/L (38-126); Anion Gap 4.8 mEq/L (5-15); Aspartate Amino Transferase 18 U/L (17-59); Blood Urea Nitrogen 19 mg/dl (9-20); Carbon Dioxide 35 mmol/L (22.0-30.0); Creatinine Clearance Estimated 93 mL/min (50-200); Estimated Glomerular Filt Rate 58 ml/min (>60); GFR (African American) 70 ML/MIN (>60)
[2023-05-08] MEDS: FUROSEMIDE 40MG/4ML VIAL 40 MG IV (08:30)
[2023-05-08 08:31] LABS: Albumin/Globulin Ratio 0.9 (1.1-1.8); Calcium 8.7 mg/dl (8.4-10.2); Globulin 3.3 g/dL (1.3-3.2); Glucose 188 mg/dl (74-100); Total Protein,Serum 6.3 g/dl (6.3-8.2)
[2023-05-08 09:21] LABS: C-Reactive Protein 80.9 mg/L (0-4)
[2023-05-08] MEDS: POLYETHYLENE GLYCOL 3350 17 GM PACKET PO ×2 (10:43→21:45)
[2023-05-08] MEDS: levoFLOXacin 750 MG TABLET PO (10:58)
[2023-05-08 11:00] LABS: POC Glucose,Bedside 153 (70-110)
[2023-05-08 12:00] VITALS: BP 124/72; PULSE 63; RESP 17; TEMP 36.6; O2SAT 91
[2023-05-08 12:40] LABS: Magnesium 1.8 mg/dl (1.6-2.3)
--- NOTE | 2023-05-08 15:18 | P.PN_ITS ---
Subjective *Date: 05/08/23 *Time: 15:18 Interval history: Patient feeling better. No fever or chills since admission. No nausea or vomiting. Tolerating p.o. intake. Sitting at bedside on exam. On room air. Having some swelling in his left leg marginally improved today Medical Exam Vital signs and Labs for Last 24 Hours: Vital Signs Temp Pulse Resp BP Pulse Ox O2 Del Method 05/08/23 13:10 Room Air 05/08/23 12:00 98 F 63 17 124/72 91 L Room Air 05/08/23 11:15 Room Air 05/08/23 07:30 Room Air 05/08/23 09:00 Room Air 05/08/23 08:00 97.8 F 58 L 19 127/73 94 L Room Air 05/08/23 04:00 97.7 F 62 20 122/65 92 L Room Air 05/08/23 02:52 Room Air 05/08/23 01:00 Room Air 05/08/23 00:00 97.9 F 64 20 107/46 L 90 L Room Air 05/07/23 23:00 Room Air 05/07/23 20:00 97.9 F 60 20 129/76 91 L Room Air 05/07/23 21:00 Room Air 05/08/23 06:20 Room Air 05/08/23 05:00 Room Air 05/07/23 20:00 Room Air 05/07/23 19:42 63 18 132/64 93 L Room Air 05/07/23 16:35 Room Air Intake and Output 05/07/23 05/08/23 05/08/23 23:59 07:59 15:59 Intake Total 240 / 1490 820 / 820 Output Total 0 / 0 0 / 0 0 / 0 Balance 240 / 1490 0 / 820 820 / 820 Intake: Intake, Oral Amount 240 / 1380 720 / 720 Intake, Total IV Amount 100 / 100 Metronidaz/Sod Chl 500 mg In 100 / 100 100 ml @ 100 mls/hr IV Q8H [facility] Rx#:[id number] Output: Output, Urine Amount 0 / 0 0 / 0 0 / 0 Other: Number of Voids 0 Number of Unmeasured Voids 1 1 1 Weight 136.305 kg Patient Weight 05/08/23 23:59 Weight 136.305 kg Laboratory Results - last 24 hr 05/07/23 17:03: POC Glucose 141 H 05/07/23 20:25: POC Glucose 172 H 05/08/23 05:13: POC Glucose 170 H 05/08/23 06:45: WBC 13.8 H, RBC 3.85 L, Hgb 12.4 L, Hct 38.4 L, MCV 99.8 H, MCH 32.2 H, MCHC 32.3, RDW 13.8, Plt Count 231, MPV 8.5, Neut % (Auto) 67.1, Lymph % (Auto) 19.4, [place] % (Auto) 8.1, Eos % (Auto) 5.3, Baso % (Auto) 0.2, Neut # (Auto) 9.3 H, Lymph # (Auto) 2.7, [place] # (Auto) 1.1 H, Eos # (Auto) 0.7 H, Baso # (Auto) 0.0, ESR 33 H, Sodium 134 L, Potassium 3.8, Chloride 98, Carbon Dioxide 35 H, Anion Gap 4.8 L, BUN 19, Creatinine 1.20, Estimated Creat Clear 93, Estimated GFR 58 L, Est GFR ( Amer) 70, Glucose 188 H D, Calcium 8.7, Magnesium 1.8, Total Bilirubin 1.0, AST 18, ALT 14, Alkaline Phosphatase 50, C- Reactive Protein 80.9 H, Total Protein 6.3, Albumin 3.0 L, Globulin 3.3 H, [place] min/Globulin Ratio 0.9 L 05/08/23 10:53: POC Glucose 153 H I & O for Labs for Last 24 Hours: Intake & Output 05/05/23 05/06/23 05/07/23 05/08/23 23:59 23:59 23:59 23:59 Intake Total 1559 1490 / 1490 820 / 820 Output Total 0 / 0 0 / 0 0 / 0 0 / 0 Balance 1559 1490 / 1490 820 / 820 Weight 134.309 kg 138.709 kg 138.709 kg 136.305 kg Microbiology Reports for the Last 24 Hours: Microbiology 05/04/23 23:15 Blood Blood Culture - Preliminary 05/04/23 23:31 Blood Blood Culture - Preliminary Constitutional: Present no acute distress, obese and chronically ill appearing Head: Present atraumatic ENT: Present normal exam Neck: Present normal inspection Respiratory: Present normal respiratory effort; Absent rhonchi, wheezes or crackles Cardiac: Present Reg Rate and Rhythm GI: Present normal bowel sounds; Absent soft, distention or tenderness Extremities: Present normal inspection, full ROM and edema (2+ left lower extremity to mid bauer) Skin: Present intact; Absent erythema or rash Neuro: Present Grossly Intact, alert, awake, oriented x 3 and moves all extremities Assessment and Plan *Assessment and plan (1) Sepsis: Status: Acute Qualifiers: Sepsis acute organ dysfunction status: without acute organ dysfunction Sepsis type: sepsis due to unspecified organism Qualified Code(s): A41.9 - Sepsis, unspecified organism Category: Medical Code(s): A41.9 - Sepsis, unspecified organism (2) Bacteremia: Status: Acute Category: Medical Code(s): R78.81 - Bacteremia (3) Right renal mass: Status: Acute Category: Medical Code(s): N28.89 - Other specified disorders of kidney and ureter (4) Tachypnea: Status: Acute Category: Medical Code(s): R06.82 - Tachypnea, not elsewhere classified (5) Leukocytosis: Status: Acute Qualifiers: Leukocytosis type: unspecified Qualified Code(s): D72.829 - Elevated white blood cell count, unspecified Category: Medical Code(s): D72.829 - Elevated white blood cell count, unspecified (6) Chills: Status: Acute Category: Medical Code(s): R68.83 - Chills (without fever) (7) HTN (hypertension): Status: Acute Qualifiers: Hypertension type: unspecified Qualified Code(s): I10 - Essential (primary) hypertension Category: Medical Code(s): I10 - Essential (primary) hypertension (8) Peripheral edema: Status: Acute Category: Medical Code(s): R60.0 - Localized edema Plan 82-year-old male with PMHx of HTN, HLD, apparently type 2 DM, very poor historian presents today with chills. at bedside contribute little to history. Patient states that he has been having chills that started the afternoon prior to admission. On arrival CXR does not showed focal consolidation however bilateral lower atelectasis may mask. Patient has a severe leukocytosis of 28, tachypneic, objectively meet SIRS criteria. Patient has a suspected infection of possible bacteremia with shaking chills. Sepsis protocols initi ated. Repeat blood cultures on admission positive for E faecalis. Will continue broad-spectrum coverage with current antibiotics. Repeat cultures obtained. Continues to require inpatient management pending negative cultures and formal plan for antibiotic regimen. Problems addressed as follows: -Suspected SIRS/sepsis presented with tachypnea and chills and leukocytosis: -Gram-positive bacteremia Patient remains afebrile. Continue vancomycin, and levofloxacin 750mg daily for ease of transition to oral regimen. Blood cultures positive for E faecalis. Repeat cultures obtained yesterday, remain negative at this time. ESR elevated at 33, CRP at 80. Repeat inflammatory markers ordered for the morning. White cell count at 13.8. CBC, CMP, magnesium ordered for the morning. Patient will need negative blood cultures prior to establishing definitive time course for antibiotics and appropriate regimen. Anticipate PICC line when cultures negative. -Echo pending to evaluate for possible endocarditis given positive bacteremia. Additional source could be from renal cancer or GI pathology. CT chest abdomen pelvis obtained. New finding of right renal mass. Highly suspicious for cancer. With the assistance of case management referring to urology. -History of hypertension: continue metoprolol 100 mg twice daily, continue lisinopril 10 mg daily, continue HCTZ 25 mg daily; Lasix 40 mg IV daily starting today Continue levothyroxine 50 mcg daily for hypothyroid Continue sliding scale insulin fingersticks ACHS for diabetes, A1C pending Continue tamsulosin for BPH Lovenox for DVT prophylaxis Protonix Full code Diabetic diet
[2023-05-08 16:00] VITALS: BP 116/75; PULSE 58; RESP 16; TEMP 36.6; O2SAT 92
[2023-05-08 17:08] LABS: POC Glucose,Bedside 154 (70-110)
--- NOTE | 2023-05-08 18:15 | PC.NURSE ---
A&OX4. PT HAS TOLERATED RA WELL THROUGHOUT SHIFT. RESPIRATIONS REGULAR AND UNLABORED. LUNG SOUNDS DIMINISHED THROUGHOUT. NO COUGH NOTED. +2 PITTING EDEMA NOTED TO LLE. NONPITTING EDEMA NOTED TO RLE. HAND BALE COVERER EQUAL. +1 PULSES NOTED THROUGHOUT. ACTIVE BOWEL SOUNDS HEARD IN ALL 4 QUADRANTS. SOFT AND NONTENDER ABDOMEN. PT HAD A BM THIS SHIFT. PT REPORTED CHRONIC BACK PAIN ONCE THIS SHIFT AND RECEIVED TYLENOL PER MAY. ON REASSESSMENT, PAIN WAS TOLERABLE. PT VOIDS PER BATHROOM WITH WALKER. HAS BEEN AT BEDSIDE THROUGHOUT SHIFT. SEVERAL FAMILY MEMBERS HAVE VISITED. PT HAS VOICED HE DOESN'T FEEL 100% TODAY. DECREASED APPETITE. NOT NAUSEA BUT JUST HAS A WEIRD AFTER TASTE IN HIS MOUTH. ENCOURAGED HIM TO TRY TO SNACK SOME SINCE HE IS RECEIVING IV ANTIBIOTICS AND SOMETIMES THEY CAN MAKE PATIENTS NOT FEEL WELL ON AN EMPTY STOMACH. HE VOICED UNDERSTANDING. PT RECEIVED FLAGYL TWICE THIS SHIFT AND TOLERATED WELL. FSBS CHECKED TWICE THIS SHIFT BEFORE MEALS. SLIDING SCALE INSULIN ADMINISTERED PER MAY. BED IN LOWEST POSITION. CALL LIGHT WITHIN REACH.
[2023-05-08 20:00] VITALS: BP 133/72; PULSE 61; RESP 16; TEMP 36.8; O2SAT 92
[2023-05-08] MEDS: MELATONIN 5MG TABLET 10 MG PO (21:45)
[2023-05-08] MEDS: TAMSULOSIN 0.4MG CAPSULE 0.400000000000000022 MG PO (21:45)
[2023-05-08] MEDS: ALPRAZolam 1MG TABLET 1 MG PO (21:45)
[2023-05-08 22:14] LABS: POC Glucose,Bedside 173 (70-110)
[2023-05-09] VITALS: BP 134/75; PULSE 68; RESP 18; TEMP 36.4; O2SAT 90
[2023-05-09] MEDS: METRONIDAZ/SOD CHL 500 MG/100 ML PIGGYBACK 100 MG IV (02:26)
[2023-05-09 04:00] VITALS: BP 122/65; PULSE 62; RESP 16; TEMP 36.6; O2SAT 90; BMI 38.4
--- NOTE | 2023-05-09 04:46 | PC.NURSE ---
Pt a/o x 4. Lung sounds diminished, active bowel sounds, 2+ pitting edema to LLE. 1+ non pitting edema to RLE. Pt is ambulating to BR with walker w/ help from staff and . 1x assist. Pt has not voiced any complaints to staff. VSS. Pt at bedside. Call light within reach .
[2023-05-09] MEDS: LEVOTHYROXINE 50MCG (0.05MG) TAB 50 MCG PO (06:44)
[2023-05-09] MEDS: humaLOG 100 UNITS/ML 3ML VIAL (SSI) SQ ×2 (06:48→11:14)
[2023-05-09 06:51] LABS: Basophils % 0.2 % (0.1-2.0); Chloride 97 mmol/L (98-107); Eosinophils # 0.6 K/mm3 (0.0-0.4); Eosinophils % 5.2 % (0.1-12.0); Hematocrit 38.8 % (42.0-52.0); Hemoglobin 12.7 g/dL (14.1-18.0); Lymphocytes # 2.1 K/mm3 (0.7-4.5); Lymphocytes % 18.1 % (10-50); Mean Corpuscular HGB Conc 32.7 g/dL (31.8-35.4); Mean Platelet Volume 8.4 fl (7.4-10.4); Monocytes # 0.8 K/mm3 (0.1-1.0); Monocytes % 6.6 % (1.7-9.3); Platelet Count 255 K/mm3 (142-424); Red Blood Count 3.95 M/mm3 (4.60-6.20); Red Cell Distribution Width 13.8 % (11.5-17.5); Sodium 133 mmol/L (136-145); White Blood Count 11.4 K/mm3 (4.8-10.8)
[2023-05-09 06:53] LABS: Blood Urea Nitrogen 18 mg/dl (9-20); Creatinine Clearance Estimated 111 mL/min (50-200); Estimated Glomerular Filt Rate 72 ml/min (>60); GFR (African American) 87 ML/MIN (>60)
[2023-05-09 06:54] LABS: Calcium 8.8 mg/dl (8.4-10.2); Carbon Dioxide 34 mmol/L (22.0-30.0); Glucose 204 mg/dl (74-100); Magnesium 1.8 mg/dl (1.6-2.3)
--- NOTE | 2023-05-09 07:12 | XR_ITS ---
FINAL REPORT CLINICAL HISTORY: Confirm PICC line placement COMPARISON: 05/04/2023 FINDINGS: SINGLE-VIEW CHEST The heart size is normal. There is an elevated left hemidiaphragm. Right PICC line tip terminates in the mid SVC, new since prior. There are persistent left base opacities, may represent atelectasis or pneumonia. There is no pneumothorax. IMPRESSION: Right PICC line as above. Persistent left base atelectasis or pneumonia. Reviewed, Interpreted and Dictated by Abhi Terrell III, MD Transcribed by Chandni Thomas Authenticated and [facility]
--- NOTE | 2023-05-09 07:12 | PC.NURSE ---
PICC line orders placed per Dr. Chandler verbal order for skilled nursing antibiotics
--- NOTE | 2023-05-09 07:27 | P.PN_ITS ---
Subjective *Date: 05/09/23 *Time: 07:27 Medical Exam Vital signs and Labs for Last 24 Hours: Vital Signs Temp Pulse Resp BP Pulse Ox O2 Del Method 05/09/23 06:56 Room Air 05/09/23 04:00 97.9 F 62 16 122/65 90 L Room Air 05/09/23 04:46 Room Air 05/09/23 02:36 Room Air 05/09/23 01:00 Room Air 05/09/23 00:00 97.5 F L 68 18 134/75 90 L Room Air 05/08/23 22:47 Room Air 05/08/23 21:00 Room Air 05/08/23 20:00 Room Air 05/08/23 20:00 98.2 F 61 16 133/72 92 L Room Air 05/08/23 16:00 97.8 F 58 L 16 116/75 92 L Room Air 05/08/23 18:36 Room Air 05/08/23 17:00 Room Air 05/08/23 15:15 Room Air 05/08/23 13:10 Room Air 05/08/23 12:00 98 F 63 17 124/72 91 L Room Air 05/08/23 11:15 Room Air 05/08/23 07:30 Room Air 05/08/23 09:00 Room Air 05/08/23 08:00 97.8 F 58 L 19 127/73 94 L Room Air Intake and Output 05/08/23 05/08/23 05/09/23 15:59 23:59 07:59 Intake Total 820 / 1530 460 / 1530 250 / 250 Output Total 0 / 0 0 / 0 Balance 820 / 1530 460 / 1530 250 / 250 Intake: Intake, Oral Amount 720 / 1080 360 / 1080 Intake, Total IV Amount 100 / 450 100 / 450 250 / 250 Metronidaz/Sod Chl 500 mg In 100 / 200 100 / 200 100 ml @ 100 mls/hr IV Q8H [facility] Rx#:[id number] Vancomycin HCl 2,000 mg In 0.9 250 / 250 % Sodium Chloride 250 ml @ 125 mls/hr IV Q18H HARVINDER Rx#:[id number] Output: Output, Urine Amount 0 / 0 0 / 0 Other: Number of Voids 0 Number of Unmeasured Voids 1 1 Number of Bowel Movements 1 Weight 135.76 kg Patient Weight 05/09/23 23:59 Weight 135.76 kg Laboratory Results - last 24 hr 05/08/23 06:45: WBC 13.8 H, RBC 3.85 L, Hgb 12.4 L, Hct 38.4 L, MCV 99.8 H, MCH 32.2 H, MCHC 32.3, RDW 13.8, Plt Count 231, MPV 8.5, Neut % (Auto) 67.1, Lymph % (Auto) 19.4, [place] % (Auto) 8.1, Eos % (Auto) 5.3, Baso % (Auto) 0.2, Neut # (Auto) 9.3 H, Lymph # (Auto) 2.7, [place] # (Auto) 1.1 H, Eos # (Auto) 0.7 H, Baso # (Auto) 0.0, ESR 33 H, Sodium 134 L, Potassium 3.8, Chloride 98, Carbon Dioxide 35 H, Anion Gap 4.8 L, BUN 19, Creatinine 1.20, Estimated Creat Clear 93, Estimated GFR 58 L, Est GFR ( Amer) 70, Glucose 188 H D, Calcium 8.7, Magnesium 1.8, Total Bilirubin 1.0, AST 18, ALT 14, Alkaline Phosphatase 50, C- Reactive Protein 80.9 H, Total Protein 6.3, Albumin 3.0 L, Globulin 3.3 H, Albumin/Globulin Ratio 0.9 L 05/08/23 10:53: POC Glucose 153 H 05/08/23 16:53: POC Glucose 154 H 05/08/23 22:02: POC Glucose 173 H 05/09/23 06:19: WBC 11.4 H, RBC 3.95 L, Hgb 12.7 L, Hct 38.8 L, MCV 98.0 H, MCH 32.0 H, MCHC 32.7, RDW 13.8, Plt Count 255, MPV 8.4, Neut % (Auto) 70.0, Lymph % (Auto) 18.1, [place] % (Auto) 6.6, Eos % (Auto) 5.2, Baso % (Auto) 0.2, Neut # (Auto) 8.0 H, Lymph # (Auto) 2.1, [place] # (Auto) 0.8, Eos # (Auto) 0.6 H, Baso # (Auto) 0.0, Sodium 133 L, Potassium 4.0, Chloride 97 L, Carbon Dioxide 34 H, Anion Gap 6.0, BUN 18, Creatinine 1.00, Estimated Creat Clear 111, Estimated GFR 72, Est GFR ( Amer) 87 D, Glucose 204 H, Calcium 8.8, Magnesium 1.8 I & O for Labs for Last 24 Hours: Intake & Output 05/06/23 05/07/23 05/08/23 05/09/23 23:59 23:59 23:59 23:59 Intake Total 1930 / 1930 1490 / 1490 1280 / 1530 250 / 250 Output Total 0 / 0 0 / 0 0 / 0 0 / 0 Balance 1930 / 1930 1490 / 1490 1280 / 1530 250 / 250 Weight 138.709 kg 138.709 kg 136.305 kg 135.76 kg Microbiology Reports for the Last 24 Hours: Microbiology 05/04/23 23:15 Blood Blood Culture - Final 05/04/23 23:31 Blood Blood Culture - Final The patient's infection will respond to the chosen ABx?: Yes Is the patient receiving the right drug, dose, and route?: Yes Could a more targeted ABx be ordered?: No
[2023-05-09] MEDS: POLYETHYLENE GLYCOL 3350 17 GM PACKET PO (07:56)
[2023-05-09] MEDS: ENOXAPARIN 40MG/0.4ML SYRINGE 40 MG SQ (07:57)
[2023-05-09] MEDS: METOPROLOL TARTRATE 50MG TABLET 100 MG PO (07:57)
--- NOTE | 2023-05-09 07:57 | PC.NURSE ---
Suzan Ferrera RN at bedside to insert picc line.
[2023-05-09] MEDS: PANTOPRAZOLE 40MG TABLET 40 MG PO (07:58)
[2023-05-09] MEDS: FUROSEMIDE 40MG/4ML VIAL 40 MG IV (07:58)
[2023-05-09] MEDS: MAGNESIUM OXIDE 400MG TABLET 400 MG PO (07:58)
[2023-05-09] MEDS: hydroCHLOROthiazide 25MG TABLET 25 MG PO (07:58)
[2023-05-09] MEDS: CITALOPRAM 20MG TABLET 20 MG PO (07:58)
[2023-05-09] MEDS: LISINOPRIL 10MG TABLET 10 MG PO (07:58)
[2023-05-09 08:00] VITALS: BP 130/67; PULSE 61; RESP 19; TEMP 36.8; O2SAT 97
[2023-05-09] MEDS: metroNIDAZOLE 500 MG TABLET PO (09:01)
--- NOTE | 2023-05-09 09:56 | HMH.PTEV ---
Physical Therapy Evaluation Rehab PT IP Evaluation Start: 05/09/23 07:51 Freq: ONCE Status: Active Protocol: Document 05/09/23 09:52 KG (Rec: 05/09/23 09:56 VIRGIEMARY [id number]) Subjective/History History History 82 yowm adm to [facility] with bacteremia. He has PMH of HTN, HLD, apparently type 2 DM. He reports he lives with , no KEITH the home, and is generally independent with all mobility. Sometimes I use my walker and sometimes I don't. Subjective Subjective Pt reports he feels a little weak in general today, but agrees to mobility assessment. New diagnosis of cancer in past 12 No months? Rehab PT IP Eval Objective Appearance Patient Behavior Appropriate Patient Orientation Person,Place,Time Difficulty following instructions none Speech Pattern Clear Ambulation Patient Able to Ambulate Yes Ambulation Observation IP General Gait Pattern Observation Shuffling Step Ambulation Distance (feet) 30 Ambulation Assistive Device Rolling Walker Ambulation Ability Supervision/Stand by Balance Ability to Arise Able, uses arms to help Sitting Balance Steady, safe Standing Balance Steady, wide stance Dynamic Sitting Balance Ability Good Dynamic Standing Balance Ability Fair Transfers Bed Transfer Ability Supervision/Stand by Chair Transfer Ability Supervision/Stand by Sit to Stand Bed Transfer Ability Supervision/Stand by Sit to Stand Chair Transfer Ability Supervision/Stand by Rehab PT IP prob,goals,plan Problems Date of Evaluation: 05/09/23 Discharge Plan PT Discharge Plan Pt is currently appropriate to return home once medically stable for d/c. Recommend home health therapy after d/c. Eval Complexity Eval Charge Codes 81594 - High Complexity PHYSICIAN CERTIFICATION: I certify the specified therapy services for Arturo Montejo are required, authorized, and reviewed every 30 days.
[2023-05-09] MEDS: levoFLOXacin 750 MG TABLET PO (10:51)
[2023-05-09 11:00] LABS: POC Glucose,Bedside 200 (70-110)
[2023-05-09 11:14] VITALS: BP 111/55; PULSE 76; RESP 19; TEMP 36.9; O2SAT 94
--- NOTE | 2023-05-09 11:53 | SW/DCPLANNER ---
Addendum entered by Keeley Driscoll 05/09/23 15:40: Per pharmacy (Delfino) dose will change from Q18 to Q24: I have updated Olivia w/ [facility] and Margarita bahena/ [facility]. Addendum entered by Keeley Driscoll 05/09/23 15:22: [facility] medication cost is roughly $18 and will be delivered to home today. Margarita w/ [facility] stated that services will start tomorrow morning at 9AM for first dose. Patient/family are agreeable w/ discharge plan. Patient will discharge home today. Original Note: Patient will need IV antibiotics at time of discharge. I spoke w/ patient and his regarding the IV antibiotics. Patient is agreeable for information to be faxed to [facility] for IV medication and [facility] for teachings at home. stated that she is comfortable administering medications at home. I will follow up w/ G[facility] and [facility] once information is reviewed. Patient may discharge home later today.
--- NOTE | 2023-05-09 13:38 | DIET.NUTRFU ---
RD completed meal rounds, he did not reallky like lunch. Reported some change in smell and tastes recently possible d/ ABT tx. Offered subst. and declined he did consume ice cream and chips. Took new dinner selection. Offered cardiac/diabetic education and declined.
--- NOTE | 2023-05-09 14:29 | PC.NURSE ---
Danielle with lab at bedside to obtain vanc trough.
[2023-05-09 15:11] VITALS: BP 115/55; PULSE 62; RESP 19; TEMP 37; O2SAT 91
[2023-05-09 15:28] LABS: Vancomycin,Trough 22.6 ug/mL (5.0-10.0)
--- NOTE | 2023-05-09 15:32 | EXP.PHA.CONS ---
Pharmacy Consult Date: 05/09/23 Time: 15:32 Referring provider: DR. ELLISON Reason for Consult:: VANCOMYCIN LEVEL AND DOSE CHANGE Allergies Allergy/AdvReac Type Severity Reaction Status Date / Time No Known Allergies Allergy Verified 09/27/19 16:26 Home Medications Medication Instructions Recorded Confirmed Type alprazolam 1 mg tablet 1 mg PO HS Anxiety 05/04/23 05/05/23 History escitalopram oxalate 10 mg tablet 10 mg PO DAILY Mood 05/04/23 05/05/23 History furosemide 20 mg tablet 20 mg PO DAILYP PRN Swelling 05/04/23 05/05/23 History hydrochlorothiazide 25 mg tablet 25 mg PO DAILY Fluid 05/04/23 05/05/23 History levothyroxine 50 mcg tablet 50 mcg PO DAILY Thyroid 05/04/23 05/05/23 History linagliptin 5 mg tablet (Tradjenta) 5 mg PO DAILY Diabetes 05/04/23 05/05/23 History lisinopril 10 mg tablet 10 mg PO DAILY High Blood Pressure 05/04/23 05/05/23 History metoprolol tartrate 100 mg tablet 100 mg PO BID High Blood Pressure 05/04/23 05/05/23 History tamsulosin 0.4 mg capsule 0.4 mg PO DAILY Prostate 05/04/23 05/05/23 History tramadol 50 mg tablet 50 mg PO BIDP PRN Moderate Pain 05/04/23 05/05/23 History (Scale Score 5-6) New Prescriptions to Start Prescriptions: Height: 1.88 m Weight: 135.76 kg Laboratory Results:: Laboratory Results - last 24 hr 05/08/23 16:53: POC Glucose 154 H 05/08/23 22:02: POC Glucose 173 H 05/09/23 06:19: WBC 11.4 H, RBC 3.95 L, Hgb 12.7 L, Hct 38.8 L, MCV 98.0 H, MCH 32.0 H, MCHC 32.7, RDW 13.8, Plt Count 255, MPV 8.4, Neut % (Auto) 70.0, Lymph % (Auto) 18.1, [place] % (Auto) 6.6, Eos % (Auto) 5.2, Baso % (Auto) 0.2, Neut # (Auto) 8.0 H, Lymph # (Auto) 2.1, [place] # (Auto) 0.8, Eos # (Auto) 0.6 H, Baso # (Auto) 0.0, Sodium 133 L, Potassium 4.0, Chloride 97 L, Carbon Dioxide 34 H, Anion Gap 6.0, BUN 18, Creatinine 1.00, Estimated Creat Clear 111, Estimated GFR 72, Est GFR ( Amer) 87 D, Glucose 204 H, Calcium 8.8, Magnesium 1.8 05/09/23 10:53: POC Glucose 200 H 05/09/23 14:30: Vancomycin Trough 22.6 H Assessment and Plan Assessment and plan all Dx Assessment and Plan for all problems:: Pharmacokinetic dosing service Weight: 135.8 Kilograms Vancomycin single level analysis: Current dose being given: 2000 mg Current dosing interval: 18 hrs Current infusion time (hrs): 2 Single level Trough Data: Trough level obtained: 22.6 mcg/ml Timing of trough - # of hrs before next dose: 0.5 Hrs Desired peak: 35 mcg/ml Desired trough: 15 mcg/ml Estimated PK Parameters: New rate constant (rizwan): 0.037 hr-1 Half-life: 18.73 Hours Vd from levels: 95.06 Liters (0.7 L/kg) CLvanco=?? 3.517 L/hr Estimated New Dose and Interval Recommended dose: 2077.9 mg Recommended interval: 24.9 Hrs Recommendations: Give Vancomycin 2000 mg q 24 hrs. Infuse over 2 hrs Expected Cpeak: 34.5 mcg/mL Expected Ctrough: 15.3 mcg/mL AUC 0-24 /GERALD Data: GERALD 0.5 mcg/mL:?? AUC/GERALD:? 1137.3 GERALD 1.0 mcg/mL:?? AUC/GERALD:? 568.7
--- NOTE | 2023-05-09 15:36 | PC.NURSE ---
spoke with pharmacy and Dr. Chandler regarding pt's vanc trough results.
--- NOTE | 2023-05-09 15:47 | PC.NURSE ---
pt and updated on vanc trough level and changes to administration. pt informed that per Keeley public health social worker that [facility] will come tomorrow aroun d3-4 and vanc will now be every 24 hr.
--- NOTE | 2023-05-09 16:22 | EXP.DC.SUM ---
General Admission date:: 05/04/23 Discharge date: 05/09/23 HPI HPI HPI: This is a 82-year-old male with PMHx of HTN, HLD, apparently type 2 DM, very poor historian presents today with chills. at bedside contribute little to history. Patient states that he has been having chills that started the afternoon prior to admission. States he does not feel sick he just feels very cold, shaky and has not been able to get warm. Denies any cough satiety or diarrhea states he may have some increased urine output over the last several days. Denies any significant dysuria or hematuria etc. Denies any abdominal pain chest pain shortness of breath states he is always little bit tachypneic. No objective fever during this time. Currently states he does not feel sick and that he feels good. Denies any rash or any other concerns. Admitted for treatment and management. Hospital Course Hospital Course Hospital Course: 82-year-old male with PMHx of HTN, HLD, apparently type 2 DM, very poor historian presents today with chills. at bedside contribute little to history. Patient states that he has been having chills that started the afternoon prior to admission. On arrival CXR does not showed focal consolidation however bilateral lower atelectasis may mask. Patient has a severe leukocytosis of 28, tachypneic, objectively meet SIRS criteria. Patient has a suspected infection of possible bacteremia with shaking chills. Sepsis protocols initiated. Repeat blood cultures on admission positive for E faecalis. Initially on broad-spectrum antibiotics, weaned to based on culture sensitivities. Meeting criteria to discharge home to complete antibiotic regimen. Home health to assist patient after discharge. 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 Patient initiated on broad-spectrum antibiotics on presentation. Blood cultures obtained. Responded quickly to treatment with defervescent's of symptoms. Blood cultures returned positive for E faecalis. Unclear etiology but scans for source including CT chest abdomen pelvis and echo of heart elicited a finding of new diagnosis of renal mass. Echo did not show any vegetations. In the absence of other criteria for endocarditis with only 1 major criteria (positive blood cultures), I have low suspicion for endocarditis at this time. Plan to complete 2 weeks of IV vancomycin. Home health orders placed. Will continue 2 g daily for 10 more days. In regard to renal mass, patient referred to urology for further evaluation and possible nephrectomy. Defer further management to urology as outpatient. Patient with no symptoms at this time of renal cancer such as pain. -White cell count improved by day of discharge. Will need labs obtained by home health to monitor Vanco trough and kidney function. Pharmacy to assist with dose adjustments. -Inflammatory markers are elevated during admission. Repeat blood cultures at 48 hours were negative. Responding appropriately to antibiotics and clearing bacteremia. -History of hypertension: continue metoprolol 100 mg twice daily, continue lisinopril 10 mg daily, continue HCTZ 25 mg daily; Lasix 40 mg IV daily starting today Continue levothyroxine 50 mcg daily for hypothyroid Continue sliding scale insulin fingersticks ACHS for diabetes, A1C 7.3. Continue home regimen at discharge with Tradjenta Continue tamsulosin for BPH Spent 30 minutes in discharge counseling, documentation, chart review, and direct care with patient. Exam Data for Last 24 hours Vital signs and Labs for Last 24 Hours: Temp Pulse Resp BP Pulse Ox O2 Del Method 98.6 F 62 19 115/55 L 91 L Room Air 05/09/23 15:11 05/09/23 15:11 05/09/23 15:11 05/09/23 15:11 05/09/23 15:11 05/09/23 15:11 Laboratory Results - last 24 hr 05/08/23 16:53: POC Glucose 154 H 05/08/23 22:02: POC Glucose 173 H 05/09/23 06:19: WBC 11.4 H, RBC 3.95 L, Hgb 12.7 L, Hct 38.8 L, MCV 98.0 H, MCH 32.0 H, MCHC 32.7, RDW 13.8, Plt Count 255, MPV 8.4, Neut % (Auto) 70.0, Lymph % (Auto) 18.1, [place] % (Auto) 6.6, Eos % (Auto) 5.2, Baso % (Auto) 0.2, Neut # (Auto) 8.0 H, Lymph # (Auto) 2.1, [place] # (Auto) 0.8, Eos # (Auto) 0.6 H, Baso # (Auto) 0.0, Sodium 133 L, Potassium 4.0, Chloride 97 L, Carbon Dioxide 34 H, Anion Gap 6.0, BUN 18, Creatinine 1.00, Estimated Creat Clear 111, Estimated GFR 72, Est GFR ( Amer) 87 D, Glucose 204 H, Calcium 8.8, Magnesium 1.8 05/09/23 10:53: POC Glucose 200 H 05/09/23 14:30: Vancomycin Trough 22.6 H I & O for Last 24 hours: Intake & Output 05/06/23 05/07/23 05/08/23 05/09/23 23:59 23:59 23:59 23:59 Intake Total 1930 / 1930 1490 / 1490 1280 / 1530 1010 / 1010 Output Total 0 / 0 0 / 0 0 / 0 0 / 0 Balance 1930 / 1930 1490 / 1490 1280 / 1530 1010 / 1010 Weight 138.709 kg 138.709 kg 136.305 kg 135.76 kg Microbiology Reports for the Last 24 Hours: Microbiology 05/04/23 23:15 Blood Blood Culture - Final 05/04/23 23:31 Blood Blood Culture - Final Constitutional Constitutional: no acute distress, obese, chronically ill appearing and cooperative *Routine HEENT Exam Head: Present normocephalic Eye: Present EOMI and PERRL ENT: Present mucous membranes moist *Routine Neck Exam Neck: Present supple; Absent lymphadenopathy *Routine Respiratory Exam Respiratory: Present CTA bilaterally *Routine Cardiovascular Exam Cardiovascular: Present RRR; Absent murmur *Routine Abdominal Exam Abdominal: Present soft and normoactive bowel sounds; Absent tenderness *Routine Rectal Exam Patient deferred: visual exam *Routine Exam Patient deferred: penile exam *Routine Extremities Exam Extremities: Absent cyanosis, clubbing or edema Comments: No splinter hemorrhages, [place] nodes, [place] lesions. *Routine Skin Exam Skin: Present warm; Absent rash *Routine Neurological Exam Neurological: Present alert, oriented X3 and moving all extremities; Absent altered mental status Results Data Completed and Pending Labs on day of discharge: Labs from last 24 hours 05/09/23 05/09/23 05/09/23 14:30 10:53 06:19 WBC 11.4 H RBC 3.95 L Hgb 12.7 L Hct 38.8 L MCV 98.0 H MCH 32.0 H MCHC 32.7 RDW 13.8 Plt Count 255 MPV 8.4 Neut % (Auto) 70.0 Lymph % (Auto) 18.1 [place] % (Auto) 6.6 Eos % (Auto) 5.2 Baso % (Auto) 0.2 Neut # (Auto) 8.0 H Lymph # (Auto) 2.1 [place] # (Auto) 0.8 Eos # (Auto) 0.6 H Baso # (Auto) 0.0 Sodium 133 L Potassium 4.0 Chloride 97 L Carbon Dioxide 34 H Anion Gap 6.0 BUN 18 Creatinine 1.00 Estimated Creat Clear 111 Estimated GFR 72 Est GFR ( Amer) 87 D Glucose 204 H POC Glucose 200 H Calcium 8.8 Magnesium 1.8 Vancomycin Trough 22.6 H 05/08/23 05/08/23 22:02 16:53 WBC RBC Hgb Hct MCV MCH MCHC RDW Plt Count MPV Neut % (Auto) Lymph % (Auto) [place] % (Auto) Eos % (Auto) Baso % (Auto) Neut # (Auto) Lymph # (Auto) [place] # (Auto) Eos # (Auto) Baso # (Auto) Sodium Potassium Chloride Carbon Dioxide Anion Gap BUN Creatinine Estimated Creat Clear Estimated GFR Est GFR ( Amer) Glucose POC Glucose 173 H 154 H Calcium Magnesium Vancomycin Trough DS: Diagnosis Discharge Diagnosis (1) Sepsis: Status: Acute Code(s): A41.9 - Sepsis, unspecified organism Qualifiers: Sepsis acute organ dysfunction status: without acute organ dysfunction Sepsis type: sepsis due to unspecified organism Qualified Code(s): A41.9 - Sepsis, unspecified organism (2) Bacteremia: Status: Acute Code(s): R78.81 - Bacteremia (3) Right renal mass: Status: Acute Code(s): N28.89 - Other specified disorders of kidney and ureter (4) Tachypnea: Status: Acute Code(s): R06.82 - Tachypnea, not elsewhere classified (5) Leukocytosis: Status: Acute Code(s): D72.829 - Elevated white blood cell count, unspecified Qualifiers: Leukocytosis type: unspecified Qualified Code(s): D72.829 - Elevated white blood cell count, unspecified (6) Chills: Status: Acute Code(s): R68.83 - Chills (without fever) (7) HTN (hypertension): Status: Acute Code(s): I10 - Essential (primary) hypertension Qualifiers: Hypertension type: unspecified Qualified Code(s): I10 - Essential (primary) hypertension (8) Peripheral edema: Status: Acute Code(s): R60.0 - Localized edema Meds Home Medications and Allergies Home Medications Medication Instructions Recorded Confirmed Type alprazolam 1 mg tablet 1 mg PO HS Anxiety 05/04/23 05/05/23 History escitalopram oxalate 10 mg tablet 10 mg PO DAILY Mood 05/04/23 05/05/23 History hydrochlorothiazide 25 mg tablet 25 mg PO DAILY Fluid 05/04/23 05/05/23 History levothyroxine 50 mcg tablet 50 mcg PO DAILY Thyroid 05/04/23 05/05/23 History linagliptin 5 mg tablet (Tradjenta) 5 mg PO DAILY Diabetes 05/04/23 05/05/23 History lisinopril 10 mg tablet 10 mg PO DAILY High Blood Pressure 05/04/23 05/05/23 History metoprolol tartrate 100 mg tablet 100 mg PO BID High Blood Pressure 05/04/23 05/05/23 History tamsulosin 0.4 mg capsule 0.4 mg PO DAILY Prostate 05/04/23 05/05/23 History tramadol 50 mg tablet 50 mg PO BIDP PRN Moderate Pain 05/04/23 05/05/23 History (Scale Score 5-6) Vancomycin HCl [Vancomycin 1000mg 125 mls/hr IV Q24H 05/09/23 Rx vial] 2,000 mg furosemide 20 mg tablet 20 mg PO DAILY 30 days #0 tabs 05/09/23 05/05/23 Rx magnesium oxide 400 mg (241.3 mg 400 mg PO DAILY 30 days #30 tabs 05/09/23 Rx magnesium) tablet New Prescriptions to Start Prescriptions: Vinay Melton Vancomycin HCl [Vancomycin 1000mg vial] 2,000 mg 0.9 % Sodium Chloride [Sod Chlor 0.9% 250mL Bag] 250 ml 125 mls/hr IV Q24H Allergies Allergy/AdvReac Type Severity Reaction Status Date / Time No Known Allergies Allergy Verified 09/27/19 16:26 Discharge Plan Disposition Patient Disposition: Home Health Service Condition: Good Discharge Order Discharge Orders: Discharge Order (Routine); Ordered 05/09/23 Ordered By: Vinay Chandler Follow up Plan Follow up with: Marlyn Ortega [Primary Care Provider] - 05/15/23 11:00 am Remi Kerns MD [Referring] - 05/17/23 1:30 pm Sreekanth Garcia MD [Staff Physician] - 05/24/23 11:45 am ([facility] location. [address] [place] [address] [place] [address] ) Prescriptions/Medication Reconciliation: New magnesium oxide 400 mg (241.3 mg magnesium) Tablet 400 mg PO DAILY 30 Days Qty: 30 0RF Vancomycin HCl [Vancomycin 1000mg vial] 2000 MG 0.9 % Sodium Chloride [Sod Chlor 0.9% 250mL Bag] 250 ML 125 mls/hr IV Q24H Ordered By: Vinay Chandler MD Last Taken: Unknown Continued alprazolam 1 mg tablet 1 mg PO HS metoprolol tartrate 100 mg tablet 100 mg PO BID tramadol 50 mg tablet 50 mg PO BIDP PRN (Reason: Moderate Pain (Scale Score 5-6)) tamsulosin 0.4 mg capsule 0.4 mg PO DAILY levothyroxine 50 mcg tablet 50 mcg PO DAILY lisinopril 10 mg tablet 10 mg PO DAILY hydrochlorothiazide 25 mg tablet 25 mg PO DAILY escitalopram oxalate 10 mg tablet 10 mg PO DAILY Tradjenta 5 mg tablet 5 mg PO DAILY Changed furosemide 20 mg tablet 20 mg PO DAILY 30 Days Qty: 0 0RF Problem Reconciliation Problems Reviewed?: Yes Patient Discharge Instructions ACTIVITY: Continue current activity DIET: continue same diet Patient Instructions: Peripherally Inserted Central Catheter Infections, DI for Sepsis -- Adult, DI for Bacteremia-Adult Providers Primary Care Provider: Marlyn Ortega Admit Provider: Vinay Chandler Attending Provider: Vinay Chandler
[2023-05-09] MEDS: VANCOMYCIN/WATER FOR INJ (PEG) 1.5 GM/300 ML PIGGYBACK IV (18:00)
[2023-05-09 20:00] VITALS: BP 148/81; PULSE 63; RESP 16; TEMP 36.4; O2SAT 91
--- NOTE | 2023-05-09 20:33 | PC.NURSE ---
Went over discharge paperwork with pt and at this time. Made aware of follow up appointments. Also provided teaching for caring for PICC line in place. Pt and verbalized understanding.
--- NOTE | 2023-05-12 12:04 | CARE MANAGER ---
Contacted patient related to hospital discharge. Patient states he is doing well. Home health has been there. He is doing the IV antibiotics and is aware of medications. He also is aware of all follow up appointments. Denies any questions or concerns. NICHOLAS Patel
== END 2023-05-09 20:35 | disposition home health service (06) | DRG 872 ==
LOC: ER 22:54 → 2ND 05-05 01:50
PROVIDERS: Nurse Practitioner Family; Admitting Provider Internal Medicine Adolescent Medicine; Emergency Provider Student in an Organized Health Care Education/Training Program; PCP Nurse Practitioner Family; Visit Provider Internal Medicine Adolescent Medicine
DX: A41.89 Other specified sepsis (principal); I10 Essential (primary) hypertension; E11.9 Type 2 diabetes mellitus without complications; E03.9 Hypothyroidism, unspecified; N28.89 Other specified disorders of kidney and ureter; Z79.01 Long term (current) use of anticoagulants
CPT/HCPCS: 36415; 36569; 71045; 71250; 74176; 80048; 80053; 80202; 81001; 82962; 83036; 83605; 83735; 83880; 84145; 84484; 85007; 85025; 85651; 86140; 87040; 87636; 93005; 93306; 97163; 97165; 99285; C1751; J3370

== ENCOUNTER 2023-05-15 15:12 | Outpatient (CLI) | payer MEDICARE, SELFPAY ==
[2023-05-15 15:43] LABS: Basophils % 0.3 % (0.1-2.0); Eosinophils # 0.6 K/mm3 (0.0-0.4); Eosinophils % 4.9 % (0.1-12.0); Hematocrit 40.7 % (42.0-52.0); Hemoglobin 13.2 g/dL (14.1-18.0); Lymphocytes # 2.4 K/mm3 (0.7-4.5); Lymphocytes % 18.9 % (10-50); Mean Corpuscular HGB Conc 32.4 g/dL (31.8-35.4); Mean Corpuscular Hemoglobin 32.2 pg (27.0-31.2); Mean Corpuscular Volume 99.3 fl (80-94); Mean Platelet Volume 8.9 fl (7.4-10.4); Monocytes # 0.9 K/mm3 (0.1-1.0); Monocytes % 6.7 % (1.7-9.3); Neutrophils # 8.8 K/mm3 (1.8-7.8); Neutrophils % 69.2 % (37.0-80.0); Platelet Count 364 K/mm3 (142-424); Red Blood Count 4.09 M/mm3 (4.60-6.20); White Blood Count 12.7 K/mm3 (4.8-10.8)
[2023-05-15 16:39] LABS: Erythrocyte Sedimentation Rate 22 mm/hr (0-20); Vancomycin,Trough 20.9 ug/mL (5.0-10.0)
[2023-05-15 16:53] LABS: Alanine Aminotransferase 18 U/L (12-78); Albumin Level 3.1 g/dl (3.5-5.0); Alkaline Phosphatase 56 U/L (38-126); Anion Gap 8.3 mEq/L (5-15); Aspartate Amino Transferase 26 U/L (17-59); Bilirubin,Total 0.6 mg/dl (0.2-1.3); Blood Urea Nitrogen 22 mg/dl (9-20); Calcium 9.5 mg/dl (8.4-10.2); Carbon Dioxide 36 mmol/L (22.0-30.0); Chloride 97 mmol/L (98-107); Estimated Glomerular Filt Rate 72 ml/min (>60); GFR (African American) 87 ML/MIN (>60); Globulin 3.1 g/dL (1.3-3.2); Glucose 122 mg/dl (74-100); Potassium 4.3 mmoL/L (3.5-5.1); Sodium 137 mmol/L (136-145); Total Protein,Serum 6.2 g/dl (6.3-8.2)
[2023-05-15 16:59] LABS: C-Reactive Protein 7.3 mg/L (0-4)
== END 2023-05-15 23:59 ==
LOC: LAB.DROPOF 15:13
PROVIDERS: PCP Nurse Practitioner Family; Visit Provider Nurse Practitioner Family
DX: A41.81 Sepsis due to Enterococcus (principal); B95.2 Enterococcus as the cause of diseases classified elsewhere; R06.82 Tachypnea, not elsewhere classified; D72.829 Elevated white blood cell count, unspecified; R68.83 Chills (without fever); I10 Essential (primary) hypertension
CPT/HCPCS: 80053; 80202; 85025; 85651; 86140

== ENCOUNTER 2023-05-19 14:59 | Outpatient (CLI) | payer MEDICARE, SELFPAY ==
[2023-05-19 16:16] LABS: Vancomycin,Trough 12.3 ug/mL (5.0-10.0)
== END 2023-05-19 23:59 ==
LOC: LAB.DROPOF 15:00
PROVIDERS: PCP Nurse Practitioner Family; Visit Provider Nurse Practitioner Family
DX: R78.81 Bacteremia (principal); Z51.81 Encounter for therapeutic drug level monitoring
CPT/HCPCS: 80202

== ENCOUNTER 2023-05-23 15:09 | Outpatient (CLI) | payer MEDICARE, SELFPAY ==
[2023-05-23 15:31] LABS: Basophils % 0.4 % (0.1-2.0); Eosinophils # 0.6 K/mm3 (0.0-0.4); Eosinophils % 5.8 % (0.1-12.0); Hematocrit 42.9 % (42.0-52.0); Lymphocytes # 2.6 K/mm3 (0.7-4.5); Lymphocytes % 24.2 % (10-50); Mean Corpuscular HGB Conc 30.3 g/dL (31.8-35.4); Mean Corpuscular Hemoglobin 31.5 pg (27.0-31.2); Monocytes # 0.8 K/mm3 (0.1-1.0); Monocytes % 7.7 % (1.7-9.3); Neutrophils # 6.6 K/mm3 (1.8-7.8); Neutrophils % 61.9 % (37.0-80.0); Platelet Count 327 K/mm3 (142-424); Red Blood Count 4.12 M/mm3 (4.60-6.20); White Blood Count 10.7 K/mm3 (4.8-10.8)
[2023-05-23 15:44] LABS: Alanine Aminotransferase 19 U/L (12-78); Albumin Level 3.1 g/dl (3.5-5.0); Alkaline Phosphatase 53 U/L (38-126); Aspartate Amino Transferase 25 U/L (17-59); Bilirubin,Total 1.3 mg/dl (0.2-1.3); Blood Urea Nitrogen 21 mg/dl (9-20); Calcium 9.4 mg/dl (8.4-10.2); Carbon Dioxide 38 mmol/L (22.0-30.0); Chloride 99 mmol/L (98-107); Estimated Glomerular Filt Rate 64 ml/min (>60); GFR (African American) 78 ML/MIN (>60); Globulin 3.2 g/dL (1.3-3.2); Glucose 155 mg/dl (74-100); Sodium 137 mmol/L (136-145); Total Protein,Serum 6.3 g/dl (6.3-8.2)
[2023-05-23 15:49] LABS: C-Reactive Protein 6.8 mg/L (0-4)
[2023-05-23 16:01] LABS: Vancomycin,Trough 6.2 ug/mL (5.0-10.0)
[2023-05-23 16:14] LABS: Erythrocyte Sedimentation Rate 26 mm/hr (0-20)
== END 2023-05-23 23:59 ==
LOC: LAB.DROPOF 15:10
PROVIDERS: PCP Nurse Practitioner Family; Visit Provider Nurse Practitioner Family
DX: R78.81 Bacteremia (principal); Z51.81 Encounter for therapeutic drug level monitoring; Z79.899 Other long term (current) drug therapy
CPT/HCPCS: 80053; 80202; 85025; 85651; 86140

== ENCOUNTER 2023-05-29 14:50 | Outpatient (CLI) | payer MEDICARE, SELFPAY ==
[2023-05-29 15:04] LABS: Basophils # 0.1 K/mm3 (0-0.2); Basophils % 0.6 % (0.1-2.0); Eosinophils # 0.7 K/mm3 (0.0-0.4); Eosinophils % 6.2 % (0.1-12.0); Hematocrit 41.6 % (42.0-52.0); Lymphocytes # 2.6 K/mm3 (0.7-4.5); Lymphocytes % 24.9 % (10-50); Mean Corpuscular HGB Conc 31.3 g/dL (31.8-35.4); Mean Corpuscular Hemoglobin 32.6 pg (27.0-31.2); Mean Corpuscular Volume 104.3 fl (80-94); Mean Platelet Volume 8.4 fl (7.4-10.4); Monocytes # 0.7 K/mm3 (0.1-1.0); Neutrophils # 6.5 K/mm3 (1.8-7.8); Neutrophils % 61.3 % (37.0-80.0); Platelet Count 249 K/mm3 (142-424); Red Blood Count 3.99 M/mm3 (4.60-6.20); Red Cell Distribution Width 13.8 % (11.5-17.5); White Blood Count 10.6 K/mm3 (4.8-10.8)
[2023-05-29 15:39] LABS: Blood Urea Nitrogen 21 mg/dl (9-20); Calcium 9.1 mg/dl (8.4-10.2); Carbon Dioxide 32 mmol/L (22.0-30.0); Chloride 98 mmol/L (98-107); Estimated Glomerular Filt Rate 58 ml/min (>60); GFR (African American) 70 ML/MIN (>60); Glucose 166 mg/dl (74-100); Sodium 136 mmol/L (136-145)
[2023-05-29 15:44] LABS: C-Reactive Protein 7.4 mg/L (0-4)
[2023-05-29 15:46] LABS: Vancomycin,Trough 9.1 ug/mL (5.0-10.0)
[2023-05-29 16:08] LABS: Erythrocyte Sedimentation Rate 25 mm/hr (0-20)
== END 2023-05-29 23:59 ==
LOC: LAB.DROPOF 14:52
PROVIDERS: PCP Nurse Practitioner Family; Visit Provider Nurse Practitioner Family
DX: I10 Essential (primary) hypertension (principal); R68.83 Chills (without fever); A41.81 Sepsis due to Enterococcus; B95.2 Enterococcus as the cause of diseases classified elsewhere; R06.82 Tachypnea, not elsewhere classified; D72.829 Elevated white blood cell count, unspecified; Z51.81 Encounter for therapeutic drug level monitoring
CPT/HCPCS: 80048; 80202; 85025; 85651; 86140

== ENCOUNTER 2023-12-20 17:00 | Observation (INO) | payer MEDICARE, SELFPAY ==
[2023-12-20] VITALS (10 sets, daily range): BP systolic 142–168; BP diastolic 67–75; PULSE 80–95; RESP 16–22; TEMP 36.6–36.7; O2SAT 91–95; BMI 38.5
--- NOTE | 2023-12-20 17:03 | ED_ITS ---
Discharge Plan Disposition Patient Disposition: Admitted Condition: Good Prescriptions Prescriptions: No Action alprazolam 1 mg tablet 1 mg PO HS metoprolol tartrate 100 mg tablet 100 mg PO BID tramadol 50 mg tablet 50 mg PO BIDP PRN (Reason: Moderate Pain (Scale Score 5-6)) tamsulosin 0.4 mg capsule 0.4 mg PO DAILY levothyroxine 50 mcg tablet 50 mcg PO DAILY lisinopril 10 mg tablet 10 mg PO DAILY hydrochlorothiazide 25 mg tablet 25 mg PO DAILY escitalopram oxalate 10 mg tablet 10 mg PO DAILY Tradjenta 5 mg tablet 5 mg PO DAILY magnesium oxide 400 mg (241.3 mg magnesium) Tablet 400 mg PO DAILY 30 Days Qty: 30 0RF furosemide 20 mg tablet 20 mg PO DAILY 30 Days Qty: 0 0RF Clinical Impressions 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 She states when she got home today that he was covered up head to toe and blankets and reporting feeling weak and chilling. She also reports that he is Looney tunes more than usual. Patient himself denies any shortness of breath fever chills hemoptysis hematochezia melena nausea vomit diarrhea. 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 He was treated with 2 weeks of IV vancomycin. Related Data Home Medications ?Medication ?Instructions ?Recorded ?Confirmed alprazolam 1 mg tablet 1 mg PO HS Anxiety 05/04/23 05/05/23 escitalopram oxalate 10 mg tablet 10 mg PO DAILY Mood 05/04/23 05/05/23 hydrochlorothiazide 25 mg tablet 25 mg PO DAILY Fluid 05/04/23 05/05/23 levothyroxine 50 mcg tablet 50 mcg PO DAILY Thyroid 05/04/23 05/05/23 linagliptin 5 mg tablet (Tradjenta) 5 mg PO DAILY Diabetes 05/04/23 05/05/23 lisinopril 10 mg tablet 10 mg PO DAILY High Blood Pressure 05/04/23 05/05/23 metoprolol tartrate 100 mg tablet 100 mg PO BID High Blood Pressure 05/04/23 05/05/23 tamsulosin 0.4 mg capsule 0.4 mg PO DAILY Prostate 05/04/23 05/05/23 tramadol 50 mg tablet 50 mg PO BIDP PRN Moderate Pain 05/04/23 05/05/23 (Scale Score 5-6) Previous Rx's ?Medication ?Instructions ?Recorded furosemide 20 mg tablet 20 mg PO DAILY 30 days #0 tabs 05/09/23 magnesium oxide 400 mg (241.3 mg 400 mg PO DAILY 30 days #30 tabs 05/09/23 magnesium) tablet Allergies Allergy/AdvReac Type Severity Reaction Status Date / Time No Known Allergies Allergy Verified 09/27/19 16:26 [facility] <IRMA Hankins - Last Filed: 12/20/23 18:51> [facility] Disclaimer: The information contained in this section may have been updated after the patient was seen, as this information can be updated by other users. Surgical History (Updated 05/05/23 @ 00:04 by Laine Tsang RN) History of splenectomy Family History (Updated 05/05/23 @ 00:04 by Laine Tsang RN) Other Family history of heart disease Social History (Updated 05/05/23 @ 00:04 by Laine Tsang RN) Smoking Status: Former smoker alcohol intake: never current occupational status: retired Travel in the last 8 weeks: None <IRMA Hankins - Last Filed: 12/20/23 18:51> ROS Obtained: Yes Systems reviewed as appropriate & no additional complaints except as documented Physical Exam <IRMA Hankins Last Filed: 12/20/23 18:51> General General appearance: alert and in no apparent distress Respiratory Respiratory exam: Present normal lung sounds bilaterally and other (Tachypnea); Absent accessory muscle use Cardiovascular Cardiovascular exam: Present regular rate Neurological Exam Neurological exam: Present alert and oriented X3 Medical Decision Making <IRMA Hankins - Last Filed: 12/20/23 18:51> Medical Records Medical records reviewed: Yes I reviewed the patient's medical records. Screening: Per USPSTF and CDC recommendations, given the prevalence of disease in our region, it is our hospital?s policy to screen for HIV and viral Hepatitis for all patients aged 18 and over and those with ongoing risk factors. Rich Inquiry Pt receiving controlled substance: No Vital Signs: 12/20/23 17:06 12/20/23 17:09 12/20/23 17:31 Temperature 98.0 F Temperature Source Oral Pulse Rate 86 88 Pulse Rate [Right Brachial] 86 Respiratory Rate 22 Blood Pressure 168/70 H 161/75 H Blood Pressure [Right Arm] 168/70 H Blood Pressure Mean [Right Arm] 102 Blood Pressure Source [Right Arm] Automatic Cuff Blood Pressure Position [Right Arm] Sitting 02 Sat by Pulse Oximetry 91 L 92 L 91 L Oxygen Delivery Method Nasal Cannula Room Air Room Air 12/20/23 17:56 12/20/23 18:00 Temperature Temperature Source Pulse Rate 88 88 Pulse Rate [Right Brachial] Respiratory Rate Blood Pressure 142/67 H 157/72 H Blood Pressure [Right Arm] Blood Pressure Mean [Right Arm] Blood Pressure Source [Right Arm] Blood Pressure Position [Right Arm] 02 Sat by Pulse Oximetry 92 L 92 L Oxygen Delivery Method Lab Data Lab results reviewed: Yes I reviewed the patient's lab results. Lab Results 12/20/23 17:20: WBC 25.5 H*, RBC 4.62, Hgb 15.0, Hct 48.2, MCV 104.4 H, MCH 32.5 H, MCHC 31.1 L, RDW 13.9, Plt Count 300, MPV 8.4, Neut % (Auto) 91.1 H, Lymph % (Auto) 3.9 L, [place] % (Auto) 3.5, Eos % (Auto) 1.0, Baso % (Auto) 0.4, Neut # (Auto) 23.2 H, Lymph # (Auto) 1.0, [place] # (Auto) 0.9, Eos # (Auto) 0.3, Baso # (Auto) 0.1, Sodium 134 L, Potassium 4.3, Chloride 97 L, Carbon Dioxide 35 H, Anion Gap 6.3, BUN 30 H, Creatinine 1.20, Estimated Creat Clear 93, Estimated GFR 58 L, Est GFR ( Amer) 70, Glucose 200 H, Calcium 10.6 H, Total Bilirubin 1.7 H, AST 22, ALT 20, Alkaline Phosphatase 60, NT-Pro-B Natriuret Pep 445, Total Protein 8.2 D, Albumin 4.2, Globulin 4.0 H, Albumin/Globulin Ratio 1.1, Procalcitonin 0.080, HIV 1&2 Antibody Rapid Nonreactive 12/20/23 17:50: Lactate 1.5, Urine Color Yellow, Urine Appearance Clear, Urine pH 6.0, Ur Specific [place] 1.015, Urine Protein Negative, Urine Glucose (UA) Negative, Urine Ketones Negative, Urine Blood Trace-i, Urine Nitrate Negative, Urine Bilirubin Negative, Urine Urobilinogen 1.0, Ur Leukocyte Esterase Negative, Urine RBC 5-10, Urine WBC 3-5, Ur Squamous Epith Cells Occasional, Urine Bacteria 1+ 12/20/23 17:20 12/20/23 17:20 Orders (Tests/Meds): ED MEDICATIONS Generic Name Dose Route Start Last Admin Trade Name Michael PRN Reason Stop Dose Admin Metronidazole 500 mg in 100 mls @ 100 mls/hr 12/20/23 18:06 Flagyl 500mg/100ml Ivpb IV 12/20/23 19:05 ONCE ONE Lactated Ringer's 2,000 mls @ 1,000 mls/hr 12/20/23 18:06 12/20/23 18:09 Lactated Ringer's 1000 Ml Bag IV 12/20/23 20:05 1,000 mls/hr .Q2H ONE Administration Vancomycin HCl 2,500 mg/ 250 mls @ 125 mls/hr 12/20/23 18:15 Sodium Chloride IV 12/20/23 20:14 ONCE ONE Levofloxacin/Dextrose 750 mg in 150 mls @ 100 mls/hr 12/20/23 18:15 Levofloxacin 750mg/150ml Premix IV 12/30/23 18:14 Q24H [facility] Iopamidol 75 ml 12/20/23 18:56 12/20/23 18:57 Iopamidol-370 (76%);100ml Bottle IV 12/20/23 18:57 75 ml ONCE ONE Administration Miscellaneous 1 each 12/20/23 18:15 Vancomycin Consult Request NOTAPPLIC 01/19/24 18:14 CONSULT PHARMACY [facility] Miscellaneous 1 each 12/20/23 18:15 Vancomycin Consult Request NOTAPPLIC 01/19/24 18:14 CONSULT PHARMACY [facility] Miscellaneous 1 each 12/20/23 18:45 Vancomycin Consult Request NOTAPPLIC 01/19/24 18:44 CONSULT PHARMACY [facility] Sodium Chloride 10 ml 12/20/23 17:20 Sodium Chloride 0.9% 10ml Flush Syringe IV 01/19/24 17:19 NEEDED PRN Maintain IV Site Sodium Chloride 10 ml 12/20/23 18:56 12/20/23 18:57 Sodium Chloride 0.9% 10ml Syr (Rad Only) IV 01/19/24 18:55 10 ml NEEDED PRN Administration Maintain IV Site Discontinued Medications Generic Name Dose Route Start Last Admin Trade Name Freq PRN Reason Stop Dose Admin Cefepime HCl 2 gm/ Sodium 100 mls @ 200 mls/hr 12/20/23 18:06 12/20/23 18:12 Chloride IV 12/20/23 18:35 200 mls/hr ONCE ONE Administration ORDERS Category Date Time Status CT abdomen pelvis w con Stat Cat Scan 12/20/23 18:[address] chest w con Stat Cat Scan 12/20/23 18:[address] head/brain wo con Stat Cat Scan 12/20/23 18:14 Taken CXR --portable [XR chest portable] Stat Exams 12/20/23 18:15 Taken BNP [NT Pro Brain Natriuretic Pep.] Stat Lab 12/20/23 17:20 Completed CBC w/Auto Diff [Complete Blood Count Auto Diff] Stat Lab 12/20/23 17:20 Results CMP [Comprehensive Metabolic Panel] Stat Lab 12/20/23 17:20 Completed Complete Blood Count Auto Diff AMLAB Lab 12/21/23 06:00 Ordered Comprehensive Metabolic Panel AMLAB Lab 12/21/23 06:00 Ordered HIV (1&2) Antibody Rapid Stat Lab 12/20/23 17:20 Completed Hep C Ab with Reflex to RNA Stat Lab 12/20/23 17:20 Received Lactic Acid Stat Lab 12/20/23 17:50 Completed Magnesium AMLAB Lab 12/21/23 06:00 Ordered Peripheral Smear Review Routine Lab 12/20/23 17:20 Received Procalcitonin Stat Lab 12/20/23 17:20 Completed UA [Urinalysis and Microscopic] Stat Lab 12/20/23 17:50 Completed Blood Culture Stat Micro 12/20/23 17:55 Received Medical Decision Narrative: In summary patient is a 82-year-old male who presents to the emergency department for evaluation of encephalopathy. Patient is normotensive with a heart rate of 86 respiratory rate of 22 which is slightly elevated satting at 91% on room air upon arrival, afebrile. 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 Physical exam is remarkable for tachypnea but clear breath sounds at the bases, normal sinus rhythm on the monitor at bedside, patient is awake and interactive but does not appear to be oriented to circumstance, no focal neurologic deficits, normal heart sounds normal abdominal exam with no rebound or guarding or rigidity. Differential diagnosis includes infection versus stroke versus metabolic derangements etc. Initial workup will be conducted with hematologic labs, CT scan head chest abdomen pelvis, blood cultures, urinalysis. Initial interventions were considered but are deferred as patient has no intervenable indications at the moment. Initial workup reviewed by me shows a white count of 25,000 with a neutrophilic shift, blood glucose of 200 but no anion gap, urinalysis that shows blood and white cells on differential 1+ bacteria and remainder of his hematologic labs are nonactionable. Given this I had an interactive discussion with hospital medicine about patient management and he will be admitted for further evaluation and care <Kye Virk MD - Last Filed: 12/20/23 19:00> Vital Signs: 12/20/23 17:06 12/20/23 17:09 12/20/23 17:31 Temperature 98.0 F Temperature Source Oral Pulse Rate 86 88 Pulse Rate [Right Brachial] 86 Respiratory Rate 22 Blood Pressure 168/70 H 161/75 H Blood Pressure [Right Arm] 168/70 H Blood Pressure Mean [Right Arm] 102 Blood Pressure Source [Right Arm] Automatic Cuff Blood Pressure Position [Right Arm] Sitting 02 Sat by Pulse Oximetry 91 L 92 L 91 L Oxygen Delivery Method Nasal Cannula Room Air Room Air 12/20/23 17:56 12/20/23 18:00 Temperature Temperature Source Pulse Rate 88 88 Pulse Rate [Right Brachial] Respiratory Rate Blood Pressure 142/67 H 157/72 H Blood Pressure [Right Arm] Blood Pressure Mean [Right Arm] Blood Pressure Source [Right Arm] Blood Pressure Position [Right Arm] 02 Sat by Pulse Oximetry 92 L 92 L Oxygen Delivery Method Lab Data Lab Results 12/20/23 17:20: WBC 25.5 H*, RBC 4.62, Hgb 15.0, Hct 48.2, MCV 104.4 H, MCH 32.5 H, MCHC 31.1 L, RDW 13.9, Plt Count 300, MPV 8.4, Neut % (Auto) 91.1 H, Lymph % (Auto) 3.9 L, [place] % (Auto) 3.5, Eos % (Auto) 1.0, Baso % (Auto) 0.4, Neut # (Auto) 23.2 H, Lymph # (Auto) 1.0, [place] # (Auto) 0.9, Eos # (Auto) 0.3, Baso # (Auto) 0.1, Sodium 134 L, Potassium 4.3, Chloride 97 L, Carbon Dioxide 35 H, Anion Gap 6.3, BUN 30 H, Creatinine 1.20, Estimated Creat Clear 93, Estimated GFR 58 L, Est GFR ( Amer) 70, Glucose 200 H, Calcium 10.6 H, Total Bilirubin 1.7 H, AST 22, ALT 20, Alkaline Phosphatase 60, NT-Pro-B Natriuret Pep 445, Total Protein 8.2 D, Albumin 4.2, Globulin 4.0 H, Albumin/Globulin Ratio 1.1, Procalcitonin 0.080, HIV 1&2 Antibody Rapid Nonreactive 12/20/23 17:50: Lactate 1.5, Urine Color Yellow, Urine Appearance Clear, Urine pH 6.0, Ur Specific [place] 1.015, Urine Protein Negative, Urine Glucose (UA) Negative, Urine Ketones Negative, Urine Blood Trace-i, Urine Nitrate Negative, Urine Bilirubin Negative, Urine Urobilinogen 1.0, Ur Leukocyte Esterase Negative, Urine RBC 5-10, Urine WBC 3-5, Ur Squamous Epith Cells Occasional, Urine Bacteria 1+ Orders (Tests/Meds): ED MEDICATIONS Generic Name Dose Route Start Last Admin Trade Name Freq PRN Reason Stop Dose Admin Metronidazole 500 mg in 100 mls @ 100 mls/hr 12/20/23 18:06 Flagyl 500mg/100ml Ivpb IV 12/20/23 19:05 ONCE ONE Lactated Ringer's 2,000 mls @ 1,000 mls/hr 12/20/23 18:06 12/20/23 18:09 Lactated Ringer's 1000 Ml Bag IV 12/20/23 20:05 1,000 mls/hr .Q2H ONE Administration Vancomycin HCl 2,500 mg/ 250 mls @ 125 mls/hr 12/20/23 18:15 Sodium Chloride IV 12/20/23 20:14 ONCE ONE Levofloxacin/Dextrose 750 mg in 150 mls @ 100 mls/hr 12/20/23 18:15 Levofloxacin 750mg/150ml Premix IV 12/30/23 18:14 Q24H [facility] Iopamidol 75 ml 12/20/23 18:56 12/20/23 18:57 Iopamidol-370 (76%);100ml Bottle IV 12/20/23 18:57 75 ml ONCE ONE Administration Miscellaneous 1 each 12/20/23 18:15 Vancomycin Consult Request NOTAPPLIC 01/19/24 18:14 CONSULT PHARMACY [facility] Miscellaneous 1 each 12/20/23 18:15 Vancomycin Consult Request NOTAPPLIC 01/19/24 18:14 CONSULT PHARMACY [facility] Miscellaneous 1 each 12/20/23 18:45 Vancomycin Consult Request NOTAPPLIC 01/19/24 18:44 CONSULT PHARMACY [facility] Sodium Chloride 10 ml 12/20/23 17:20 Sodium Chloride 0.9% 10ml Flush Syringe IV 01/19/24 17:19 NEEDED PRN Maintain IV Site Sodium Chloride 10 ml 12/20/23 18:56 12/20/23 18:57 Sodium Chloride 0.9% 10ml Syr (Rad Only) IV 01/19/24 18:55 10 ml NEEDED PRN Administration Maintain IV Site Discontinued Medications Generic Name Dose Route Start Last Admin Trade Name Freq PRN Reason Stop Dose Admin Cefepime HCl 2 gm/ Sodium 100 mls @ 200 mls/hr 12/20/23 18:06 12/20/23 18:12 Chloride IV 12/20/23 18:35 200 mls/hr ONCE ONE Administration ORDERS Category Date Time Status CT abdomen pelvis w con Stat Cat Scan 12/20/23 18:[address] chest w con Stat Cat Scan 12/20/23 18:[address] head/brain wo con Stat Cat Scan 12/20/23 18:14 Taken CXR --portable [XR chest portable] Stat Exams 12/20/23 18:15 Taken BNP [NT Pro Brain Natriuretic Pep.] Stat Lab 12/20/23 17:20 Completed CBC w/Auto Diff [Complete Blood Count Auto Diff] Stat Lab 12/20/23 17:20 Results CMP [Comprehensive Metabolic Panel] Stat Lab 12/20/23 17:20 Completed Complete Blood Count Auto Diff AMLAB Lab 12/21/23 06:00 Ordered Comprehensive Metabolic Panel AMLAB Lab 12/21/23 06:00 Ordered HIV (1&2) Antibody Rapid Stat Lab 12/20/23 17:20 Completed Hep C Ab with Reflex to RNA Stat Lab 12/20/23 17:20 Received Lactic Acid Stat Lab 12/20/23 17:50 Completed Magnesium AMLAB Lab 12/21/23 06:00 Ordered Peripheral Smear Review Routine Lab 12/20/23 17:20 Received Procalcitonin Stat Lab 12/20/23 17:20 Completed UA [Urinalysis and Microscopic] Stat Lab 12/20/23 17:50 Completed Blood Culture Stat Micro 12/20/23 17:55 Received Medical Decision Narrative: In summary patient is a 82-year-old male who presents to the emergency department for evaluation of encephalopathy. Patient is normotensive with a heart rate of 86 respiratory rate of 22 which is slightly elevated satting at 91% on room air upon arrival, afebrile. 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 Physical exam is remarkable for tachypnea but clear breath sounds at the bases, normal sinus rhythm on the monitor at bedside, patient is awake and interactive but does not appear to be oriented to circumstance, no focal neurologic deficits, normal heart sounds normal abdominal exam with no rebound or guarding or rigidity. Differential diagnosis includes infection versus stroke versus metabolic derangements etc. Initial workup will be conducted with hematologic labs, CT scan head chest abdomen pelvis, blood cultures, urinalysis. Initial interventions were considered but are deferred as patient has no intervenable indications at the moment. Initial workup reviewed by me shows a white count of 25,000 with a neutrophilic shift, blood glucose of 200 but no anion gap, urinalysis that shows blood and white cells on differential 1+ bacteria and remainder of his hematologic labs are nonactionable. Given this I had an interactive discussion with hospital medicine about patient management and he will be admitted for further evaluation and care I was consulted by the CHRIS, and we discussed the complexity of the problems being addressed. I approved the treatment and management plan for this patient's care in the Emergency Department, thus performing a substantive portion of the medical decision making. Kye Virk MD Critical Care <IRMA Hankins - Last Filed: 12/20/23 18:51> Critical Care Time Critical Care Time: No <Kye Virk MD - Last Filed: 12/20/23 19:00> Critical Care Time Critical Care Time: Yes (ID) Attestation: On 12/20/23, the high probability of a clinically significant, sudden or life threatening deterioration of the following system(s) required my full and direct attention, intervention and personal management. The time I documented below is in addition to time spent performing reported procedures but includes the following listed in this critical care notation. Total Time Total Critical Care Time: 35
--- NOTE | 2023-12-20 17:17 | ECG_ITS ---
APPROVED REPORT Exam: Resting ECG HR:82 bpm ECG Measurements Heart Rate 82 AXES MO 194 P 65 QRSd 176 QRS 139 QT 403 T 1 QTc 442 Conclusion Sinus rhythm Right bundle branch block with right axis deviation Electronically signed by : LLOYD SAHU, 12/20/2023 21:39:06
[2023-12-20 17:32] LABS: Albumin Level 4.2 g/dl (3.5-5.0); Chloride 97 mmol/L (98-107); Potassium 4.3 mmoL/L (3.5-5.1); Sodium 134 mmol/L (136-145)
[2023-12-20 17:35] LABS: Alanine Aminotransferase 20 U/L (12-78); Albumin/Globulin Ratio 1.1 (1.1-1.8); Alkaline Phosphatase 60 U/L (38-126); Anion Gap 6.3 mEq/L (5-15); Aspartate Amino Transferase 22 U/L (17-59); Bilirubin,Total 1.7 mg/dl (0.2-1.3); Blood Urea Nitrogen 30 mg/dl (9-20); Carbon Dioxide 35 mmol/L (22.0-30.0); Creatinine Clearance Estimated 93 mL/min (50-200); Estimated Glomerular Filt Rate 58 ml/min (>60); GFR (African American) 70 ML/MIN (>60); Total Protein,Serum 8.2 g/dl (6.3-8.2)
[2023-12-20 17:36] LABS: Basophils # 0.1 K/mm3 (0-0.2); Basophils % 0.4 % (0.1-2.0); Calcium 10.6 mg/dl (8.4-10.2); Eosinophils # 0.3 K/mm3 (0.0-0.4); Glucose 200 mg/dl (74-100); Hematocrit 48.2 % (42.0-52.0); Lymphocytes % 3.9 % (10-50); Mean Corpuscular HGB Conc 31.1 g/dL (31.8-35.4); Mean Corpuscular Hemoglobin 32.5 pg (27.0-31.2); Mean Corpuscular Volume 104.4 fl (80-94); Mean Platelet Volume 8.4 fl (7.4-10.4); Monocytes # 0.9 K/mm3 (0.1-1.0); Monocytes % 3.5 % (1.7-9.3); Neutrophils # 23.2 K/mm3 (1.8-7.8); Neutrophils % 91.1 % (37.0-80.0); Platelet Count 300 K/mm3 (142-424); Red Blood Count 4.62 M/mm3 (4.60-6.20); Red Cell Distribution Width 13.9 % (11.5-17.5); White Blood Count 25.5 K/mm3 (4.8-10.8)
[2023-12-20 17:44] LABS: MANUAL DIFFERENTIAL MANUAL DIFFERENTIAL (MANUAL DIFF); NT Pro Brain Natriuretic Pep. 445 pg/mL (0-450)
[2023-12-20 17:54] LABS: Microscopic, Urine URINE MICROSCOPIC (MICROSCOPIC)
[2023-12-20 17:55] LABS: Appearance,Urine CLEAR (Clear); Bilirubin,Urine Negative (Negative); Blood, Urine TRACE-I (Negative); Color,Urine YELLOW (Yellow); Glucose,Urine (UA) Negative (Negative); Ketones,Urine Negative (Negative); Leukocyte Esterase,Urine Negative (Negative); Nitrate,Urine Negative (Negative); Protein,Urine Negative (Negative); Specific Gravity, Urine 1.015 (1.005-1.030)
[2023-12-20 18:06] LABS: Bacteria,Urine 1+ /lpf; Squamous Epithelial Cell,Urine Occasional #/hpf (0-5)
--- NOTE | 2023-12-20 18:08 | PC.NURSE ---
EDEI SPEAKING WITH DR ELLISON
[2023-12-20] MEDS: LACTATED RINGERS 1000ML 2,000 ML 1000 ML IV (18:09)
[2023-12-20] MEDS: CEFEPIME HCL 2 GM in 0.9 % SODIUM CHLORIDE 100 ML IV (18:12)
[2023-12-20 18:14] LABS: Lactic Acid 1.5 mmol/L (0.7-2.1)
--- NOTE | 2023-12-20 18:14 | CT_ITS ---
PROCEDURE INFORMATION: Exam: CT Chest With Contrast; Diagnostic Exam date and time: 12/20/2023 6:43 PM Age: 82 years old Clinical indication: Condition or disease; Other: Renal neoplasm; Additional info: Leukocytosis, renal neoplasm TECHNIQUE: Imaging protocol: Diagnostic computed tomography of the chest with contrast. Radiation optimization: All CT scans at this facility use at least one of these dose optimization techniques: automated exposure control; mA and/or kV adjustment per patient size (includes targeted exams where dose is matched to clinical indication); or iterative reconstruction. Contrast material: ISOVUE; Contrast volume: 75 ml; Contrast route: IV; COMPARISON: 1. CT CHEST WO CON 05/05/2023 7:54 AM 2. CR XR CHEST PORTABLE 12/20/2023 6:11 PM 3. CR XR CHEST PORTABLE PICC PLAC 05/09/2023 8:56 AM FINDINGS: Lungs: There are scattered areas of emphysema throughout the lungs. Scattered areas of bronchial wall thickening which are likely chronic inflammatory. A few areas of subpleural reticulation are noted, nonspecific. Stable 4 mm left upper lobe pulmonary nodule. Stable 4 mm right lower lobe pulmonary nodule. Pleural spaces: Pleural surfaces are smooth, and there are no pleural effusions, pneumothoraces, or pleural plaques noted. Heart: The heart size is within normal limits, and the pericardium appears clear with no signs of pericardial effusion or thickening. Coronary arteries: The coronary arteries are not well-visualized in this non-gated study, but nosignificant calcification is seen. Mediastinal space: The mediastinum appears unremarkable with no evidence of masses, lymphadenopathy, or mediastinal widening. Hilar structures including the major bronchi and vessels appear intact. Lymph nodes: There are mildly prominent mediastinal lymph nodes which are nonenlarged. Vasculature: There is atherosclerotic disease of the visualized aorta and its major branch vessels. Intraperitoneal space: Please see the dedicated interpretation of abdomen and pelvis for findings in that region. Bones/joints: There is diffuse degenerative disease of the visualized osseous structures. There are old left posterior 5th through 9th rib fractures. There are old right posterior 6th through 10th rib fractures. Soft tissues: Unremarkable. Other findings: Motion artifact moderately limits evaluation. IMPRESSION: 1. No dense parenchymal consolidation, pleural effusion, or pneumothorax. 2. Multiple small pulmonary nodules appear stable from the exam seven months prior although evaluation is limited by significant motion. 3. Please see the dedicated interpretation of abdomen and pelvis for findings in that region.
--- NOTE | 2023-12-20 18:14 | CT_ITS ---
PROCEDURE INFORMATION: Exam: CT Head Without Contrast Exam date and time: 12/20/2023 6:40 PM Age: 82 years old Clinical indication: Other: Encephalopathy TECHNIQUE: Imaging protocol: Computed tomography of the head without contrast. Radiation optimization: All CT scans at this facility use at least one of these dose optimization techniques: automated exposure control; mA and/or kV adjustment per patient size (includes targeted exams where dose is matched to clinical indication); or iterative reconstruction. COMPARISON: No relevant prior studies available. FINDINGS: Brain: Moderate diffuse cerebral atrophy is consistent with this patient's age. The visualized basilar cisterns are patent. The cortical/white matter interfaces are preserved throughout the brain. There is no evidence of mass, mass effect or midline shift. There is no evidence of acute hemorrhage within the brain parenchyma or the subarachnoid space. The craniocervical junction is within range of normal. There are patchy moderate areas of diminished density in the periventricular and subcortical white matter bilaterally which are nonspecific, however likely represent chronic small vessel ischemic change. If symptoms persist, correlation with MRI is advised. Small focus of low attenuation in the posteroinferior left occipital lobe suggests small remote infarct. Cerebral ventricles: The ventricular system demonstrates mild diffuse compensatory enlargement. Paranasal sinuses: The visualized portions of the sinuses are normal. Mastoid air cells: The mastoid sinuses are normal. Orbital cavities: The orbits are normal. Bones: There is no evidence of acute fracture. Dental amalgam artifact limits evaluation of adjacent structures. Soft tissues: No soft tissue swelling is identified. Other findings: Motion artifact significantly limits the sensitivity of this examination. IMPRESSION: 1. No acute intracranial abnormality. 2. Chronic and senescent changes as described.
--- NOTE | 2023-12-20 18:14 | CT_ITS ---
PROCEDURE INFORMATION: Exam: CT Abdomen And Pelvis With Contrast Exam date and time: 12/20/2023 6:43 PM Age: 82 years old Clinical indication: Condition or disease; Other: Renal neoplasm; Additional info: Leukocytosis, renal neoplasm TECHNIQUE: Imaging protocol: Computed tomography of the abdomen and pelvis with contrast. Radiation optimization: All CT scans at this facility use at least one of these dose optimization techniques: automated exposure control; mA and/or kV adjustment per patient size (includes targeted exams where dose is matched to clinical indication); or iterative reconstruction. Contrast material: ISOVUE; Contrast volume: 75 ml; Contrast route: IV; COMPARISON: 1. CT ABDOMEN PELVIS WO CON 05/05/2023 7:[address] CHEST W CON 12/20/2023 6:[address] CHEST WO CON 05/05/2023 7:54 AM FINDINGS: Liver: Normal. Gallbladder and biliary ducts: There is cholelithiasis within an otherwise normal gallbladder. Pancreas: Normal. Spleen: Normal. Adrenal glands: The adrenal glands appear normal. Kidneys and ureters: See Vasculature finding. Stomach and bowel: The stomach, small bowel, and colon are well-distended and show no evidence of wall thickening, masses, or obstruction. Appendix: No evidence of appendicitis. Intraperitoneal space: Unremarkable. Vasculature: There are increasing varices adjacent to the right renal mass suggesting some element of renal vein involvement. There is atherosclerotic disease of the visualized aorta and its major branch vessels. Lymph nodes: There are mildly prominent but nonenlarged and nonspecific retroperitoneal nodes. Mildly prominent nodes in the central mesentery, nonspecific. Urinary bladder: Unremarkable as visualized. Reproductive: No acute process. Bones/joints: There is a left hip arthroplasty with associated streak artifact mildly limits evaluation of the pelvis. There is diffuse degenerative disease of the visualized osseous structures. Soft tissues: There are calcifications within the buttocks which most likely reflect injection granulomas. Other findings: Please see the dedicated interpretation of the thorax for findings in that region. Interval growth of a right lower pole renal mass which now measures up to 12.0 x 7.9 cm, previously 11.6 x 6.2 cm. IMPRESSION: 1. Increasing size of a right lower pole renal mass. 2. Please see the dedicated interpretation of the thorax for findings in that region.
--- NOTE | 2023-12-20 18:15 | XR_ITS ---
PROCEDURE INFORMATION: Exam: XR Chest Exam date and time: 12/20/2023 6:11 PM Age: 82 years old Clinical indication: Dyspnea TECHNIQUE: Imaging protocol: Radiologic exam of the chest. Views: 1 view. COMPARISON: CR XR CHEST PORTABLE PICC PLAC 05/09/2023 8:56 AM FINDINGS: Tubes, catheters and devices: Previously seen right subclavian PICC line has been removed. Lungs: Lung volumes are mildly diminished, as before.There is moderate stable elevation of the left hemidiaphragm. Mild peribronchial cuffing is stable. Mild bibasilar, left greater than right, linear markings are unchanged suggestive of parenchymal scarring. Pleural spaces: No right effusion. Blunting of the left lateral costophrenic angle is stable which may reflect pleural scarring or small stable pleural effusion. Negative for pneumothorax. Heart/Mediastinum: There is mild stable pulmonary vascular plethora. The heart is mildly enlarged. Bones/joints: There is no evidence of acute fracture. The thoracic spine demonstrates moderate degenerative changes at multiple levels. A few remote left-sided rib fractures are stable. IMPRESSION: 1. Negative for an acute cardiopulmonary abnormality. Overall, little significant change. 2. Mild stable cardiomegaly.
--- NOTE | 2023-12-20 18:32 | PC.NURSE ---
patient gone to CT at this time.
[2023-12-20 18:43] LABS: HIV (1&2) Antibody Rapid NONREACTIVE (NONREACTIVE)
--- NOTE | 2023-12-20 18:54 | PC.NURSE ---
patient back in room at this time.
[2023-12-20] MEDS: IOPAMIDOL-370 (76%);100ML BOTTLE 75 ML IV (18:57)
[2023-12-20] MEDS: SODIUM CHLORIDE 0.9% 10ML SYR (RAD ONLY) 10 ML IV (18:57)
[2023-12-20 19:05] LABS: Anisocytosis 1+; Lymphocytes % 10 % (10-50); Macrocytosis 1+; Monocytes % 3 % (2-9); Neutrophils % 86 % (42-76); Total Cells Counted 100
[2023-12-20 19:06] LABS: Platelet Estimate Normal
--- NOTE | 2023-12-20 19:07 | PC.NURSE ---
clean up supervisor notified of admission and need for bed
--- NOTE | 2023-12-20 19:10 | PC.NURSE ---
Patient admitted to room 213 to hospitalist for encephalopathy; observation status.
[2023-12-20] MEDS: VANCOMYCIN CONSULT REQUEST 1 EACH NOTAPPLIC ×2 (19:36)
--- NOTE | 2023-12-20 19:36 | PC.NURSE ---
Received phone report from Samir Barber ED nurse at [phone]. Patient is an 82 yo male , confused. Admission DX: Encephalopathy.Will transfer per stretcher.
--- NOTE | 2023-12-20 19:42 | PC.NURSE ---
pt arrived to floor via stretcher at this time
--- NOTE | 2023-12-20 20:03 | EXP.HP ---
History of Present Illness *Admission Date: 12/20/23 *Reason for visit:: Malaise, chills I feel like I am going to . *History of present illness: Patient with past medical history of BPH, hypertension, anxiety, asplenia, diabetes, kidney tumor diagnosed April 2023. Patient status post hospitalization April 2023 for E. Faecalis bacteremia. Presents complaining of chills, malaise, weakness, feeling like I am going to , recliner sleeping, increased lower extremity swelling. Patient states that most symptoms have occurred for about a week, but worsened over the past 24 hours. present with patient emergency room and collaborates the story. Admits to chronic shortness of breath, which is slightly worsened over past few days. States his primary care physician gave him Lasix 20 mg as needed for swelling, and he has been taking Lasix daily for the past 7 days. Admits to increased recliner sleeping over the past month worse this week. Denies known sick contacts, recent travel, chest pain, palpitations, orthopnea, PND, abdominal pain, diarrhea. states that he has been unsteady on his feet, and holding onto stuff while walking at home. states the unsteadiness has gone on for past 24 hours. [facility] Disclaimer: The information contained in this section may have been updated after the patient was seen, as this information can be updated by other users. Surgical History History of splenectomy Family History Other Family history of heart disease Social History (Updated 12/20/23 @ 20:09 by Rupa Horton RN) Smoking Status: Former smoker alcohol intake: never current occupational status: retired Travel in the last 8 weeks: None Review of Systems Review of Systems Review of systems (narrative): All pertinent positives given in HPI. Please assume all other 14 review of system is negative as otherwise stated above. Meds Home Medications and Allergies Home Medications ?Medication ?Instructions ?Recorded ?Confirmed ?Type alprazolam 1 mg tablet 1 mg PO HS Anxiety 05/04/23 12/20/23 History escitalopram oxalate 10 mg tablet 20 mg PO DAILY Mood 05/04/23 12/20/23 History hydrochlorothiazide 25 mg tablet 25 mg PO DAILY Fluid 05/04/23 12/20/23 History levothyroxine 50 mcg tablet 50 mcg PO DAILY Thyroid 05/04/23 12/20/23 History linagliptin 5 mg tablet (Tradjenta) 5 mg PO DAILY Diabetes 05/04/23 12/20/23 History lisinopril 10 mg tablet 10 mg PO DAILY High Blood Pressure 05/04/23 12/20/23 History metoprolol tartrate 100 mg tablet 100 mg PO BID High Blood Pressure 05/04/23 12/20/23 History tamsulosin 0.4 mg capsule 0.4 mg PO DAILY Prostate 05/04/23 12/20/23 History tramadol 50 mg tablet 50 mg PO BIDP PRN Moderate Pain 05/04/23 12/20/23 History (Scale Score 5-6) furosemide 20 mg tablet 20 mg PO DAILY 30 days #0 tabs 05/09/23 12/20/23 Rx aspirin 81 mg tablet,delayed 81 mg PO DAILY 12/20/23 12/20/23 History release New Prescriptions to Start Prescriptions: Allergies Allergy/AdvReac Type Severity Reaction Status Date / Time No Known Allergies Allergy Verified 09/27/19 16:26 Exam Data for Last 24 hours Vital signs and Labs for Last 24 Hours: Temp Pulse Resp BP Pulse Ox O2 Del Method 98.1 F 95 H 17 156/74 H 94 L Room Air 12/20/23 19:40 12/20/23 19:40 12/20/23 19:40 12/20/23 19:40 12/20/23 19:30 12/20/23 19:40 Laboratory Results - last 24 hr 12/20/23 17:20: WBC 25.5 H*, RBC 4.62, Hgb 15.0, Hct 48.2, MCV 104.4 H, MCH 32.5 H, MCHC 31.1 L, RDW 13.9, Plt Count 300, MPV 8.4, Neut % (Auto) 91.1 H, Lymph % (Auto) 3.9 L, [place] % (Auto) 3.5, Eos % (Auto) 1.0, Baso % (Auto) 0.4, Neut # (Auto) 23.2 H, Lymph # (Auto) 1.0, [place] # (Auto) 0.9, Eos # (Auto) 0.3, Baso # (Auto) 0.1, Total Counted 100, Neutrophils % (Manual) 86 H, Band Neutrophils % 1.0, Lymphocytes % (Manual) 10, Monocytes % (Manual) 3, Platelet Estimate Normal, Anisocytosis 1+, Macrocytosis 1+, Sodium 134 L, Potassium 4.3, Chloride 97 L, Carbon Dioxide 35 H, Anion Gap 6.3, BUN 30 H, Creatinine 1.20, Estimated Creat Clear 93, Estimated GFR 58 L, Est GFR ( Amer) 70, Glucose 200 H, Calcium 10.6 H, Total Bilirubin 1.7 H, AST 22, ALT 20, Alkaline Phosphatase 60, NT-Pro-B Natriuret Pep 445, Total Protein 8.2 D, Albumin 4.2, Globulin 4.0 H, Albumin/Globulin Ratio 1.1, Procalcitonin 0.080, HIV 1&2 Antibody Rapid Nonreactive 12/20/23 17:50: Lactate 1.5, Urine Color Yellow, Urine Appearance Clear, Urine pH 6.0, Ur Specific [place] 1.015, Urine Protein Negative, Urine Glucose (UA) Negative, Urine Ketones Negative, Urine Blood Trace-i, Urine Nitrate Negative, Urine Bilirubin Negative, Urine Urobilinogen 1.0, Ur Leukocyte Esterase Negative, Urine RBC 5-10, Urine WBC 3-5, Ur Squamous Epith Cells Occasional, Urine Bacteria 1+ I & O for Last 24 hours: Intake & Output 12/17/23 12/18/23 12/19/23 12/20/23 23:59 23:59 23:59 23:59 Weight 136.078 kg Constitutional Constitutional: mild distress, obese and disheveled *Routine HEENT Exam Head: Present normocephalic Eye: Present EOMI ENT: Present mucous membranes moist *Routine Neck Exam Neck: Present supple and full ROM *Routine Respiratory Exam Respiratory: Present decreased breath sounds and diminished air movement *Routine Cardiovascular Exam Cardiovascular: Present tachycardia *Routine Abdominal Exam Abdominal: Present soft and normoactive bowel sounds *Routine Rectal Exam Rectal:: deferred *Routine Genitalia Exam Genitalia:: deferred *Routine Extremities Exam Extremities: Present full ROM and normal capillary refill *Routine Skin Exam Skin: Present intact *Routine Neurological Exam Neurological: Present alert, oriented X3 and CN II-XII intact Assessment and Plan *Assessment and plan (1) SIRS (systemic inflammatory response syndrome): Status: Acute Category: Medical Code(s): R65.10 - Systemic inflammatory response syndrome (SIRS) of non-infectious origin without acute organ dysfunction (2) Diabetes: Status: Acute Category: Medical Code(s): E11.9 - Type 2 diabetes mellitus without complications (3) Elevated brain natriuretic peptide (BNP) level: Status: Acute Category: Medical Code(s): R79.89 - Other specified abnormal findings of blood chemistry (4) HTN (hypertension): Status: Acute Qualifiers: Hypertension type: unspecified Qualified Code(s): I10 - Essential (primary) hypertension Category: Medical Code(s): I10 - Essential (primary) hypertension (5) Anxiety: Status: Acute Category: Medical Code(s): F41.9 - Anxiety disorder, unspecified Plan Really nice patient with with past medical history of diabetes, hypertension, kidney tumor, anxiety. Patient suffered from Enterococcus faecalis bacteremia April 2023, was treated at this institution 05/04 to 05/09. Patient sent home on 2 weeks of vancomycin via PICC. Presents complaining of chills, malaise, feeling like I am going to , recliner sleeping, weakness. Plan as follows below: Systematic inflammatory response syndrome: -Empirically cover patient with IV doxycycline 100 mg p.o. every 12, cefepime 1 g IV every 12, and vancomycin 1 g IV x 1 with pharmacy to dose. Patient's UA shows little signs of infection with negative nitrates/leuk esterase, WBC 3-5, +1 bacteria, and trace blood. Patient's lactic acid 1.5, procalcitonin 0.8, CRP 24.7. WBC 25.5 at time of admission. Patient tachycardic with heart rate of 100 bpm on monitor during my assessment in emergency room. I personally read/interpreted chest x-ray, and I am concerned about possible left lower lobe airspace disease. Will therefore empirically treat patient for community-acquired pneumonia. Empirical coverage with IV Zosyn given April 2023 E. Faecalis bacteremia in recent past. Check MRSA nares. Blood cultures and urine culture done at time of admission. Admission HIV reviewed and nonreactive. Respiratory PCR panel negative for infectious pathogens. MRSA nares PCR test pending. Diabetes: - Hemoglobin A1c 7.5 on 12/19 implying good diabetes control. I ordered sliding scale insulin, and ACHS Accu-Cheks. Will continue home Tradjenta 5 mg p.o. daily. Diabetic diet. Patient's [id number] blood sugar 191 mg/dL at 2159 on day of admission. Blood sugar on admission BMP 200. Elevated BNP rule out CHF: ? Patient admits to taking Lasix 20 mg p.o. daily for past 7 days due to increased swelling. States his primary care physician gave him a standing prescription for Lasix 20 mg daily as needed. Also admits to requiring sleeping. BMP 445 on 12/20/2023. Will order echocardiogram in a.m. to rule out heart failure. Cautious fluid management throughout hospitalization. Will order Lasix 20 mg IV daily during hospitalization. Hold home Lasix 20 mg p.o. daily. I personally interpreted patient's EKG at time of admission. EKG showed right axis deviation with V3 T wave inversion without signs of STEMI. CAD prophylaxis: Continue aspirin 81 mg p.o. Hypertension: Lasix 20 mg IV daily, continue home lisinopril 10 mg p.o. daily, Lopressor 100 mg p.o. twice daily Kidney tumor: Recommend outpatient urology follow-up after hospital discharge. Patient and patient's state that they are aware of this condition and it was first diagnosed April 2023. Anxiety: Continue patient's home as presently 1 mg nightly and escitalopram 10 mg p.o. daily Hypothyroidism: Continue Synthroid 50 mg p.o. daily BPH continue tamsulosin 0.4 p.o. daily Weakness: ? Order PT/OT evaluation during hospitalization. PPx Lovenox 40 mg p.o. daily FEN: Diabetic diet CODE STATUS: Full code [facility] [place]: High, patient suffering from systematic inflammatory response syndrome, and at high risk for loss of life or bodily function without emergent inpatient treatment. Data: As noted above and plan section for imaging/lab work. I personally interpreted patient's chest x-ray as noted in service section. I also interpreted patient's EKG at time of admission with my findings noted in elevated BNP section o plan, Patient's acted as independent historian, and provided details about patient's medications, and gave additional details about patient's history of present illness. I discussed this case at length with the emergency room provider Dr. Virk, and we agreed that given patient's SIRS patient met admission criteria. Risk: High, I decided to hospitalize patient given systematic inflammatory response syndrome poses a high risk for or bodily injury if not immediately hospitalized/evaluated. 61 minutes of total care time spent on patient by Dr. Graham 12/20/2023
[2023-12-20 20:13] LABS: C-Reactive Protein 24.7 mg/L (0-4)
[2023-12-20] MEDS: METRONIDAZ/SOD CHL 500 MG/100 ML PIGGYBACK 100 MG IV (20:59)
[2023-12-20 21:11] LABS: Adenovirus,PCR Not Detected (NotDetected); Bordetella Pertussis Not Detected (NotDetected); Chlamydophila Pneumoniae, PCR Not Detected (NotDetected); Coronavirus 19, PCR Not Detected (NotDetected); Coronavirus 229E Not Detected (NotDetected); Coronavirus NL63 Not Detected (NotDetected); Coronavirus OC43 Not Detected (NotDetected); Coronovirus HKU1,PCR Not Detected (NotDetected); Human Metapneumovirus Not Detected (NotDetected); Influenza A, PCR Not Detected (NotDetected); Influenza AH1, 2009 Not Detected (NotDetected); Influenza AH1, PCR Not Detected (NotDetected); Influenza AH3,PCR Not Detected (NotDetected); Influenza B, PCR Not Detected (NotDetected); Mycoplasma Pneumoniae, PCR Not Detected (NotDetected); Parainfluenza 1, PCR Not Detected (NotDetected); Parainfluenza 2, PCR Not Detected (NotDetected); Parainfluenza 3, PCR Not Detected (NotDetected); Parainfluenza 4, PCR Not Detected (NotDetected); Respiratory Syncytial Virus Not Detected (NotDetected); Rhinovirus/Enterovirus Not Detected (NotDetected)
[2023-12-20 21:42] LABS: Hemoglobin A1C 7.5 % (4.0-6.0)
[2023-12-20] MEDS: LEVOFLOXACIN/D5W 750 MG/150 ML 750 MG/150 ML PIGGYBACK 100 MG IV (21:47)
[2023-12-20] MEDS: humaLOG 100 UNITS/ML 10ML VIAL (SSI) SQ (22:06)
[2023-12-20] MEDS: DOXYCYCLINE HYCL 100 MG TABLET PO (22:15)
[2023-12-20 22:16] LABS: POC Glucose,Bedside 191 (70-110)
[2023-12-20] MEDS: VANCOMYCIN HCL 2,500 MG in 0.9 % SODIUM CHLORIDE 250 ML 125 MG IV (22:45)
[2023-12-20] MEDS: SODIUM CHLORIDE 3% 15ML NEB 3 ML IH (23:11)
[2023-12-21] VITALS (7 sets, daily range): BP systolic 102–120; BP diastolic 55–62; PULSE 60–77; RESP 16–17; TEMP 36.6–38; O2SAT 91–95; BMI 38.5
[2023-12-21] MEDS: ACETAMINOPHEN 500MG TAB 500 MG PO (00:38)
--- NOTE | 2023-12-21 00:46 | INFXCTL.NOTE ---
Bladder scan [address] Graham notified.
--- NOTE | 2023-12-21 03:25 | PC.NURSE ---
Resting quietly in bed. Spouse at bedside. Low grade temp 100.4 oral. Received ES Tylenol 500 mg po at 0035. Receiving multiple iv antibiotics for UTI along with po Doxycyclne. Tolerating well.
[2023-12-21] MEDS: CEFEPIME HCL 1 GM in 0.9 % SODIUM CHLORIDE 50 ML IV (04:18)
[2023-12-21] MEDS: VANCOMYCIN HCL 1,000 MG in 0.9 % SODIUM CHLORIDE 250 ML 125 MG IV (05:15)
[2023-12-21 05:27] LABS: POC Glucose,Bedside 147 (70-110)
--- NOTE | 2023-12-21 06:00 | CA_ITS ---
APPROVED REPORT EXAM: Comprehensive 2D, Doppler, and color-flow Echocardiogram Cosmetic Manager: DAVONTE Saenz, RVS Ht: 6 ft 2 in Wt: 300lbs BSA: 2.58 BP: 156/74 mmHg Indications: CHF, SOA, Edema, DM, HTN, Weakness, Elevated WBC's 2D Dimensions IVSd 0.89 cm M: 0.6-1.2 LVEF (Visual) 49.60 % PWd 0.82 cm M: 0.6 - 1.2 LVDd 3.95 cm M: 4.2 - 5.9 LVDs 2.97 cm M: 2.5 - 4.0 Left Atrium 2.74 cm M: 3.0 - 4.0 M-Mode Dimensions LA Diam 4.17 cm (1.9-4.0) TAPSE 2.62 (<1.7) LV Diastology E Decel Time 320 (160-240 msec) E/A Ratio 1.00 MED A' 10.50 cm/s LAT A' 8.30 cm/s Aortic Valve KYARA Index 0.70 cm2/m2 AoV Peak Sergio. 212.0 (50-130 cm/s) AO Peak GR. 18.00 mmHg AO Mean GR. 9.70 (<5 mmHg) AO VTI 44.0 (18-25 cm) KYARA (VTI) 1.86 (2.5-4.5 cm2) Mitral Valve MV A Velocity 98.0 (40-130 cm/s) E/A Ratio 1.00 Tricuspid Valve TR P. Velocity 190.00 cm/s RAP Estimate 10.00 mmHg RVSP 24.40 mmHg Left Ventricle The left ventricle is normal size. The left ventricular systolic function is normal. The left ventricular ejection fraction is within the normal range. There is increased LV wall thickness. There is normal LV segmental wall motion. The left ventricular diastolic function is normal. LVEF is 55%. Right Ventricle Right ventricle is moderately dilated. Right ventricle is mildly hypokinetic. Atria The left atrium is mildly dilated. The right atrium is mildly dilated. There is no Doppler evidence of interatrial shunt. Aortic Valve Aortic valve is mildly thickened. Mild aortic stenosis. KYARA by continuity equation is 1.8 cm???. Peak velocity 2.1 m/s. Mean AV gradient 10 mmHg. Max AV gradient 18 mmHg. No aortic regurgitation is present. Mitral Valve Mild mitral annular calcification. The mitral valve leaflets are mildly thickened. Trace mitral regurgitation. No evidence of mitral valve stenosis. Tricuspid Valve The tricuspid valve leaflets are thin and pliable. Trace tricuspid regurgitation. There is insufficient TR jet to estimate RVSP. Pulmonic Valve The pulmonary valve is normal in structure. Mild pulmonic regurgitation. Great Vessels The aortic root is normal in size. The ascending aorta is not well-visualized. IVC is normal in size and collapses >50% with inspiration. Pericardium There is no pericardial effusion. Other Information Study Quality: Fair Conclusion Normal LV systolic function. Moderate RV dilation with mild reduction in RV function. Mild biatrial dilation. Mild (KYARA by continuity equation is 1.8 cm???. Peak velocity 2.1 m/s. Mean AV gradient 10 mmHg. Max AV gradient 18 mmHg). Electronically signed by : Nereyda Cameron MD 12/21/2023 11:52:14
[2023-12-21 06:19] LABS: Basophils # 0.1 K/mm3 (0-0.2); Basophils % 0.4 % (0.1-2.0); Eosinophils # 0.1 K/mm3 (0.0-0.4); Eosinophils % 0.3 % (0.1-12.0); Hematocrit 42.2 % (42.0-52.0); Lymphocytes # 1.7 K/mm3 (0.7-4.5); Lymphocytes % 8.3 % (10-50); Mean Corpuscular HGB Conc 31.5 g/dL (31.8-35.4); Mean Corpuscular Hemoglobin 32.3 pg (27.0-31.2); Mean Corpuscular Volume 102.7 fl (80-94); Mean Platelet Volume 8.8 fl (7.4-10.4); Monocytes # 1.1 K/mm3 (0.1-1.0); Monocytes % 5.4 % (1.7-9.3); Neutrophils # 17.9 K/mm3 (1.8-7.8); Neutrophils % 85.6 % (37.0-80.0); Platelet Count 282 K/mm3 (142-424); Red Blood Count 4.11 M/mm3 (4.60-6.20); White Blood Count 20.9 K/mm3 (4.8-10.8)
[2023-12-21 06:21] LABS: MANUAL DIFFERENTIAL MANUAL DIFFERENTIAL (MANUAL DIFF)
[2023-12-21 06:24] LABS: Hemoglobin 13.2 g/dL (14.1-18.0)
[2023-12-21 06:28] LABS: Alanine Aminotransferase 15 U/L (12-78); Albumin Level 3.3 g/dl (3.5-5.0); Albumin/Globulin Ratio 1.1 (1.1-1.8); Alkaline Phosphatase 45 U/L (38-126); Anion Gap 3.4 mEq/L (5-15); Aspartate Amino Transferase 19 U/L (17-59); Bilirubin,Total 1.6 mg/dl (0.2-1.3); Blood Urea Nitrogen 29 mg/dl (9-20); Calcium 9.7 mg/dl (8.4-10.2); Carbon Dioxide 31 mmol/L (22.0-30.0); Chloride 99 mmol/L (98-107); Creatinine Clearance Estimated 80 mL/min (50-200); Estimated Glomerular Filt Rate 49 ml/min (>60); GFR (African American) 59 ML/MIN (>60); Globulin 3.1 g/dL (1.3-3.2); Glucose 147 mg/dl (74-100); Magnesium 1.4 mg/dl (1.6-2.3); Potassium 3.4 mmoL/L (3.5-5.1); Sodium 130 mmol/L (136-145); Total Protein,Serum 6.4 g/dl (6.3-8.2)
[2023-12-21 06:33] LABS: C-Reactive Protein 96.2 mg/L (0-4)
--- NOTE | 2023-12-21 06:38 | PC.NURSE ---
Dr Graham here. Order to stop vancomycin AM dose at this time.
[2023-12-21 07:13] LABS: Troponin I 0.05 ng/ml (0.00-0.034)
[2023-12-21 07:18] LABS: Procalcitonin 0.257 ng/mL (0.0-2.0)
[2023-12-21 07:57] LABS: Lymphocytes % 18 % (10-50); Macrocytosis 1+; Monocytes % 1 % (2-9); Neutrophils % 81 % (42-76); Platelet Estimate Normal; Total Cells Counted 100
--- NOTE | 2023-12-21 07:58 | EXP.ACUTE.PN ---
Subjective *Date: 12/21/23 *Time: 07:58 Medical Exam Vital signs and Labs for Last 24 Hours: Vital Signs Temp Pulse Pulse Resp BP BP Pulse Ox 12/21/23 06:48 65 12/21/23 06:40 12/21/23 05:00 12/21/23 04:00 99.3 F 69 16 106/57 L 91 L 12/21/23 03:00 12/21/23 01:00 12/21/23 00:00 100.4 F H 77 16 120/58 L 91 L 12/20/23 23:12 80 12/20/23 23:00 12/20/23 21:00 12/20/23 20:37 94 L 12/20/23 19:45 97.9 F 94 H 16 151/67 H 94 L 12/20/23 19:40 98.1 F 95 H 17 156/74 H 12/20/23 19:30 94 H 156/74 H 94 L 12/20/23 18:00 88 157/72 H 92 L 12/20/23 17:56 88 142/67 H 92 L 12/20/23 17:31 88 161/75 H 91 L 12/20/23 17:09 98.0 F 86 22 168/70 H 92 L 12/20/23 17:06 86 168/70 H 91 L O2 Del Method 12/21/23 06:48 12/21/23 06:40 Room Air 12/21/23 05:00 Room Air 12/21/23 04:00 Room Air 12/21/23 03:00 Room Air 12/21/23 01:00 Room Air 12/21/23 00:00 Room Air 12/20/23 23:12 12/20/23 23:00 Room Air 12/20/23 21:00 Room Air 12/20/23 20:37 Room Air 12/20/23 19:45 Room Air 12/20/23 19:40 Room Air 12/20/23 19:30 12/20/23 18:00 12/20/23 17:56 12/20/23 17:31 Room Air 12/20/23 17:09 Room Air 12/20/23 17:06 Nasal Cannula Intake and Output 12/20/23 12/20/23 12/21/23 15:59 23:59 07:59 Intake Total 1550 / 1550 50 / 50 Output Total 2 / 2 100 / 100 Balance 1548 / 1548 -50 / -50 Intake: Intake, Total IV Amount 1550 / 1550 50 / 50 Cefepime HCl 1 gm In 0.9 % 50 / 50 50 / 50 Sodium Chloride 50 ml @ 100 mls /hr IV Q12H [facility] Rx#:[id number] Lactated Ringers 1000ML 2,000 1000 / 1000 ml @ 1000 mls/hr IV .Q2H [facility] Rx #:[id number] Levofloxacin/D5w 750 mg/150 ml 150 / 150 750 mg In 150 ml @ 100 mls/hr IV Q24H [facility] Rx#:[id number] Metronidaz/Sod Chl 500 mg In 100 / 100 100 ml @ 100 mls/hr IV ONCE ONE Rx#:[id number] Vancomycin HCl 2,500 mg In 0.9 250 / 250 % Sodium Chloride 250 ml @ 125 mls/hr IV ONCE ONE Rx#:[id number] Output: Output, Urine Amount 2 / 2 100 / 100 Other: Number of Unmeasured Voids 1 Weight 136.07 kg 136.07 kg Patient Weight 12/21/23 23:59 Weight 136.07 kg Laboratory Results - last 24 hr 12/20/23 17:20: WBC 25.5 H*, RBC 4.62, Hgb 15.0, Hct 48.2, MCV 104.4 H, MCH 32.5 H, MCHC 31.1 L, RDW 13.9, Plt Count 300, MPV 8.4, Neut % (Auto) 91.1 H, Lymph % (Auto) 3.9 L, [place] % (Auto) 3.5, Eos % (Auto) 1.0, Baso % (Auto) 0.4, Neut # (Auto) 23.2 H, Lymph # (Auto) 1.0, [place] # (Auto) 0.9, Eos # (Auto) 0.3, Baso # (Auto) 0.1, Total Counted 100, Neutrophils % (Manual) 86 H, Band Neutrophils % 1.0, Lymphocytes % (Manual) 10, Monocytes % (Manual) 3, Platelet Estimate Normal, Anisocytosis 1+, Macrocytosis 1+, Sodium 134 L, Potassium 4.3, Chloride 97 L, Carbon Dioxide 35 H, Anion Gap 6.3, BUN 30 H, Creatinine 1.20, Estimated Creat Clear 93, Estimated GFR 58 L, Est GFR ( Amer) 70, Glucose 200 H, Hemoglobin A1c 7.5 H, Calcium 10.6 H, Total Bilirubin 1.7 H, AST 22, ALT 20, Alkaline Phosphatase 60, NT-Pro-B Natriuret Pep 445, Total Protein 8.2 D, Albumin 4.2, Globulin 4.0 H, Albumin/Globulin Ratio 1.1, Procalcitonin 0.080, HIV 1&2 Antibody Rapid Nonreactive 12/20/23 17:50: Lactate 1.5, C-Reactive Protein 24.7 H, Urine Color Yellow, Urine Appearance Clear, Urine pH 6.0, Ur Specific [place] 1.015, Urine Protein Negative, Urine Glucose (UA) Negative, Urine Ketones Negative, Urine Blood Trace-i, Urine Nitrate Negative, Urine Bilirubin Negative, Urine Urobilinogen 1.0, Ur Leukocyte Esterase Negative, Urine RBC 5-10, Urine WBC 3-5, Ur Squamous Epith Cells Occasional, Urine Bacteria 1+ 12/20/23 21:00: Chlamy pneumoniae PCR Not detected, Adenovirus (PCR) Not detected, B. pertussis DNA (PCR) Not detected, Coronavirus OC43 (PCR) Not detected, Coronavirus HKU1 (PCR) Not detected, Coronavirus 229E (PCR) Not detected, SARS-CoV-2 (PCR) Not detected, Coronavirus NL63 (PCR) Not detected, Human Metapneumovir PCR Not detected, Influenza A (H1) PCR Not detected, Influ A (H1N1/09) PCR Not detected, Influenza A (H3) PCR Not detected, Influenza Type A (PCR) Not detected, Influenza Type B (PCR) Not detected, M. pneumoniae (PCR) Not detected, Parainfluenza 1 (PCR) Not detected, Parainfluenza 2 (PCR) Not detected, Parainfluenza 3 (PCR) Not detected, Parainfluenza 4 (PCR) Not detected, RSV (PCR) Not detected, Entero/Rhino (PCR) Not detected 12/20/23 21:59: POC Glucose 191 H 12/21/23 05:19: POC Glucose 147 H 12/21/23 05:43: WBC 20.9 H*, RBC 4.11 L, Hgb 13.2 L D, Hct 42.2, MCV 102.7 H, MCH 32.3 H, MCHC 31.5 L, RDW 14.0, Plt Count 282, MPV 8.8, Neut % (Auto) 85.6 H, Lymph % (Auto) 8.3 L, [place] % (Auto) 5.4, Eos % (Auto) 0.3, Baso % (Auto) 0.4, Neut # (Auto) 17.9 H, Lymph # (Auto) 1.7, [place] # (Auto) 1.1 H, Eos # (Auto) 0.1, Baso # (Auto) 0.1, Total Counted 100, Neutrophils % (Manual) 81 H, Lymphocytes % (Manual) 18, Monocytes % (Manual) 1 L, Platelet Estimate Normal, RBC Morphology Not Reportable, Macrocytosis 1+, Sodium 130 L, Potassium 3.4 L D, Chloride 99, Carbon Dioxide 31 H, Anion Gap 3.4 L, BUN 29 H, Creatinine 1.40 H, Estimated Creat Clear 80, Estimated GFR 49 L, Est GFR ( Amer) 59, Glucose 147 H D, Calcium 9.7, Magnesium 1.4 L, Total Bilirubin 1.6 H, AST 19, ALT 15, Alkaline Phosphatase 45, Troponin I 0.05 H, C-Reactive Protein 96.2 H D, Total Protein 6.4, Albumin 3.3 L D, Globulin 3.1, Albumin/Globulin Ratio 1.1, Procalcitonin 0.257 I & O for Labs for Last 24 Hours: Intake & Output 12/18/23 12/19/23 12/20/23 12/21/23 23:59 23:59 23:59 23:59 Intake Total 1550 / 1550 50 / 50 Output Total 100 / 100 Balance 1548 / 1548 -50 / -50 Weight 136.07 kg 136.07 kg
[2023-12-21] MEDS: ENOXAPARIN 40MG/0.4ML SYRINGE 40 MG SQ (08:37)
[2023-12-21] MEDS: POLYETHYLENE GLYCOL 3350 17 GM PACKET PO (08:37)
[2023-12-21] MEDS: LEVOTHYROXINE 50MCG (0.05MG) TAB 50 MCG PO (08:37)
[2023-12-21] MEDS: ASPIRIN EC 81MG TABLET 81 MG PO (08:37)
[2023-12-21] MEDS: DOXYCYCLINE HYCL 100 MG TABLET PO (08:37)
[2023-12-21] MEDS: ESCITALOPRAM 10 MG 1 EACH PO (08:38)
[2023-12-21] MEDS: SENNOSIDES 8.6MG/DOCUSATE 50MG TABLET 1 TAB PO (08:38)
[2023-12-21] MEDS: TRADJENTA 5 MG 1 EACH PO (08:39)
[2023-12-21] MEDS: LISINOPRIL 10 MG 1 EACH PO (08:39)
[2023-12-21] MEDS: METOPROLOL TART 1 EACH PO (08:39)
--- NOTE | 2023-12-21 08:40 | HMH.PHAINT1 ---
Pharmacy Intervention Comments: HOME MEDICATION LIST VERIFIED USING LIST FROM OUTPATIENT PHARMACY AND PT'S BOTTLES
--- NOTE | 2023-12-21 09:42 | SW/DCPLANNER ---
Addendum entered by Keeley Driscoll 12/22/23 09:21: [facility] is unable to accept patient. Patient information/order faxed to Emelyn bahena/ [facility] and has been accepted for services. Addendum entered by Keeley Driscoll 12/22/23 08:16: Margarita bahena/ [facility] accepted patient for services. Addendum entered by Britany Valle RN 12/21/23 15:25: Patient discharging today. Faxed referral to [facility]. Original Note: I spoke w/ this patient regarding plans once medically stable for discharge. PT/OT evaluated patient and recommended patient returning home w/ home health services. Patient stated that he has used home health in the past ([facility]) and is agreeable to use services again at time of discharge. I will set up home health once medically stable. Discharge date is unknown at this time.
--- NOTE | 2023-12-21 10:01 | HMH.OTEV ---
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 Patient status post hospitalization April 2023 for E. Faecalis bacteremia. Presents complaining of chills, malaise , weakness, feeling like I am going to , recliner sleeping, increased lower extremity swelling. Patient states that most symptoms have occurred for about a week, but worsened over the past 24 hours. present with patient emergency room and collaborates the story. Admits to chronic shortness of breath, which is slightly worsened over past few days. States his primary care physician gave him Lasix 20 mg as needed for swelling, and he has been taking Lasix daily for the past 7 days. Admits to increased recliner sleeping over the past month worse this week. Denies known sick contacts, recent travel, chest pain, palpitations, orthopnea , PND, abdominal pain, diarrhea. states that he has been unsteady on his feet , and holding onto stuff while walking at home. states the unsteadiness has gone on for past 24 hours. Lives in 1 story home with with no KEITH. Uses a RW at night time. Independent with ADLs and fx'l mobility at home . Continues to drive. continues to work. Subjective I can get up. Analysis Patient's balance, transfers, fx'l mobility and ADLs during initial evaluation . Patient used RW to maneuver throughout environment with SUP. No LOB noted. Patient completed all transfers and ADLs I. Objective Patient Orientation Person,Name,Age,Birthday,Year Right Upper Extremity Gross ROM WFL Left Upper Extremity Gross ROM WFL Transfer Training Sit/Stand Transfer Assist Level Independent Chair Transfer Ability Independent Chair Transfer Technique Sit to/from Ambulatory Chair Transfer Assistive Devices Rolling Walker Rehab OT IP prob,goals,plan Problems Date of Evaluation: 12/21/23 Rehab Potential Rehab Potential Innapropriate for Skilled Therapy Discharge Plan OT Discharge Plan Patient appears to be at baseline with ADLs and fx'l mobility tasks. Patient to return home with after medical d/c. Eval Complexity Eval Charge Codes 54456 - Low Complexity PHYSICIAN CERTIFICATION: I certify the specified therapy services for Arturo Silva Montejo are required, authorized, and reviewed every 30 days.
--- NOTE | 2023-12-21 10:45 | HMH.PTEV ---
Physical Therapy Evaluation Rehab PT IP Evaluation Start: 12/21/23 05:36 Freq: ONCE Status: Active Protocol: Document 12/21/23 09:26 KG (Rec: 12/21/23 10:45 PHOMARY [id number]) Subjective/History History History This is the initial inpatient evaluation for Arturo Montejo, a 82 yowm that was admitted into [facility] for encephalopathy. Patient also had some complaints of increased shortness of breath that has occurred over the past several days. The patient has a PMH that includes: BPH, hypertension, anxiety, asplenia, diabetes, chronic shortness of breath, kidney tumor diagnosed April 2023. The patient has a past surgical history that includes a splenectomy. Subjective Subjective Patient was accompanied by at time of the evaluation . Patient stated that he lives at home with his in a single story home. Patient has 5 steps to get into the front of the home but goes into the back door that has no steps. 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 Patient stated yea I am pretty independent, when asked if he was able to bath, dress, cook, etc. independently. Patient has a lift chair recliner that he sits in at home throughout the day and noted he still sleeps in his bed. 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 New diagnosis of cancer in past 12 Yes months? Rehab PT IP Eval Objective Appearance Patient Behavior Appropriate,Cooperative Patient Orientation Person,Place,Birthday Difficulty following instructions none Speech Pattern Clear,Appropriate Ambulation Patient Able to Ambulate Yes Ambulation Observation IP General Gait Pattern Observation No Deviations/Normal Ambulation Assistive Device Rolling Walker Ambulation Ability Supervision/Stand by Balance Ability to Arise Able, uses arms to help Sitting Balance Steady, safe Standing Balance Narrow stance w/o support Dynamic Sitting Balance Ability Normal Dynamic Standing Balance Ability Normal Transfers Bed Transfer Ability Supervision/Stand by Sit to Stand Bed Transfer Ability Supervision/Stand by Rehab PT IP prob,goals,plan Problems Date of Evaluation: 12/20/23 Discharge Plan PT Discharge Plan Patient is most appropriate to discharge to home with home health. Patient would benefit with home health for building endurance to return patient to his PLOF. Eval Complexity Eval Charge Codes 53267 - High Complexity PHYSICIAN CERTIFICATION: I certify the specified therapy services for Arturo Silva Montejo are required, authorized, and reviewed every 30 days.
[2023-12-21] MEDS: humaLOG 100 UNITS/ML 10ML VIAL (SSI) SQ (11:45)
[2023-12-21 12:10] LABS: POC Glucose,Bedside 168 (70-110)
--- NOTE | 2023-12-21 12:11 | P.CONPHA_ITS ---
Pharmacy Consult Date: 12/21/23 Time: 12:12 Referring provider: DR ELLISON Reason for Consult:: VANCOMYCIN DOSING CONSULT Allergies Allergy/AdvReac Type Severity Reaction Status Date / Time No Known Allergies Allergy Verified 09/27/19 16:26 Home Medications ?Medication ?Instructions ?Recorded ?Confirmed ?Type alprazolam 1 mg tablet 1 mg PO HS PRN Anxiety 05/04/23 12/20/23 History escitalopram oxalate 10 mg tablet 10 mg PO DAILY 05/04/23 12/21/23 History hydrochlorothiazide 25 mg tablet 25 mg PO DAILY 05/04/23 12/20/23 History levothyroxine 50 mcg tablet 50 mcg PO DAILY Thyroid 05/04/23 12/20/23 History linagliptin 5 mg tablet (Tradjenta) 5 mg PO DAILY 05/04/23 12/20/23 History lisinopril 10 mg tablet 10 mg PO DAILY 05/04/23 12/20/23 History metoprolol tartrate 100 mg tablet 100 mg PO BID 05/04/23 12/20/23 History tamsulosin 0.4 mg capsule 0.4 mg PO HS 05/04/23 12/21/23 History tramadol 50 mg tablet 50 mg PO BIDP PRN Moderate Pain 05/04/23 12/20/23 History (Scale Score 5-6) furosemide 20 mg tablet 20 mg PO DAILY 30 days #0 tabs 05/09/23 12/20/23 Rx aspirin 81 mg tablet,delayed 81 mg PO DAILY 12/20/23 12/20/23 History release New Prescriptions to Start Prescriptions: Height: 1.88 m Weight: 136.07 kg Laboratory Results:: Laboratory Results - last 24 hr 12/20/23 17:20: WBC 25.5 H*, RBC 4.62, Hgb 15.0, Hct 48.2, MCV 104.4 H, MCH 32.5 H, MCHC 31.1 L, RDW 13.9, Plt Count 300, MPV 8.4, Neut % (Auto) 91.1 H, Lymph % (Auto) 3.9 L, [place] % (Auto) 3.5, Eos % (Auto) 1.0, Baso % (Auto) 0.4, Neut # (Auto) 23.2 H, Lymph # (Auto) 1.0, [place] # (Auto) 0.9, Eos # (Auto) 0.3, Baso # (Auto) 0.1, Total Counted 100, Neutrophils % (Manual) 86 H, Band Neutrophils % 1.0, Lymphocytes % (Manual) 10, Monocytes % (Manual) 3, Platelet Estimate Normal, Anisocytosis 1+, Macrocytosis 1+, Sodium 134 L, Potassium 4.3, Chloride 97 L, Carbon Dioxide 35 H, Anion Gap 6.3, BUN 30 H, Creatinine 1.20, Estimated Creat Clear 93, Estimated GFR 58 L, Est GFR ( Amer) 70, Glucose 200 H, Hemoglobin A1c 7.5 H, Calcium 10.6 H, Total Bilirubin 1.7 H, AST 22, ALT 20, Alkaline Phosphatase 60, NT-Pro-B Natriuret Pep 445, Total Protein 8.2 D, Albumin 4.2, Globulin 4.0 H, Albumin/Globulin Ratio 1.1, Procalcitonin 0.080, HIV 1&2 Antibody Rapid Nonreactive 12/20/23 17:50: Lactate 1.5, C-Reactive Protein 24.7 H, Urine Color Yellow, Urine Appearance Clear, Urine pH 6.0, Ur Specific [place] 1.015, Urine Protein Negative, Urine Glucose (UA) Negative, Urine Ketones Negative, Urine Blood Trace-i, Urine Nitrate Negative, Urine Bilirubin Negative, Urine Urobilinogen 1.0, Ur Leukocyte Esterase Negative, Urine RBC 5-10, Urine WBC 3-5, Ur Squamous Epith Cells Occasional, Urine Bacteria 1+ 12/20/23 21:00: Chlamy pneumoniae PCR Not detected, Adenovirus (PCR) Not detected, B. pertussis DNA (PCR) Not detected, Coronavirus OC43 (PCR) Not detected, Coronavirus HKU1 (PCR) Not detected, Coronavirus 229E (PCR) Not detected, SARS-CoV-2 (PCR) Not detected, Coronavirus NL63 (PCR) Not detected, Human Metapneumovir PCR Not detected, Influenza A (H1) PCR Not detected, Influ A (H1N1/09) PCR Not detected, Influenza A (H3) PCR Not detected, Influenza Type A (PCR) Not detected, Influenza Type B (PCR) Not detected, M. pneumoniae (PCR) Not detected, Parainfluenza 1 (PCR) Not detected, Parainfluenza 2 (PCR) Not detected, Parainfluenza 3 (PCR) Not detected, Parainfluenza 4 (PCR) Not detected, RSV (PCR) Not detected, Entero/Rhino (PCR) Not detected 12/20/23 21:59: POC Glucose 191 H 12/21/23 05:19: POC Glucose 147 H 12/21/23 05:43: WBC 20.9 H*, RBC 4.11 L, Hgb 13.2 L D, Hct 42.2, MCV 102.7 H, MCH 32.3 H, MCHC 31.5 L, RDW 14.0, Plt Count 282, MPV 8.8, Neut % (Auto) 85.6 H, Lymph % (Auto) 8.3 L, [place] % (Auto) 5.4, Eos % (Auto) 0.3, Baso % (Auto) 0.4, Neut # (Auto) 17.9 H, Lymph # (Auto) 1.7, [place] # (Auto) 1.1 H, Eos # (Auto) 0.1, Baso # (Auto) 0.1, Total Counted 100, Neutrophils % (Manual) 81 H, Lymphocytes % (Manual) 18, Monocytes % (Manual) 1 L, Platelet Estimate Normal, RBC Morphology Not Reportable, Macrocytosis 1+, Sodium 130 L, Potassium 3.4 L D, Chloride 99, Carbon Dioxide 31 H, Anion Gap 3.4 L, BUN 29 H, Creatinine 1.40 H, Estimated Creat Clear 80, Estimated GFR 49 L, Est GFR ( Amer) 59, Glucose 147 H D, Calcium 9.7, Magnesium 1.4 L, Total Bilirubin 1.6 H, AST 19, ALT 15, Alkaline P hosphatase 45, Troponin I 0.05 H, C-Reactive Protein 96.2 H D, Total Protein 6.4, Albumin 3.3 L D, Globulin 3.1, Albumin/Globulin Ratio 1.1, Procalcitonin 0.257 12/21/23 11:49: POC Glucose 168 H Assessment and Plan Assessment and plan all Dx Assessment and Plan for all problems:: Pharmacokinetic dosing service Objective: Age: 82 yo Serum creatinine: 1.4 mg/dL Height: 74.0 Inches Weight (kg): 136.07 Diagnosis: BACTEREMIA/SIRS Assessment: IBW (kg): 82.20 Dosing wt(kg): 136.07 Estimated Creatinine clearance (ml/min): 48.1 CRCL method: Cockcroft and Gault using ibw(default). Drug selected: Vancomycin Loading dose (mg): 2500 MG Vd (liters): 95.2 (factor used: 0.7 L/kg) Ash (hr-1): 0.044 Half life (hrs): 15.75 CLvanco=?? 4.189 L/hr Recommended dose: 2250 mg Interval: 24 hrs Infusion time (hrs): 2.0 Predicted peak (mcg/mL): 34.7 Predicted trough (mcg/mL): 13.18 Total body weight is being used for vancomycin dosing. Recommendations: Give Vancomycin 2250 mg q 24 hrs with an expected Cpeak of 34.7 mcg/ml and an expected Ctrough of 13.18 mcg/ml AUC 0-24 /GERALD Data: GERALD 0.5 mcg/mL:?? AUC/GERALD:? 1074.2 GERALD 1.0 mcg/mL:?? AUC/GERALD:? 537.1 --------- GERALD 1.5 mcg/mL:?? AUC/GERALD:? 358.1 GERALD 2.0 mcg/mL:?? AUC/GERALD:? 268.6 Thank you for the consult
[2023-12-21 12:56] LABS: Troponin I 0.03 ng/ml (0.00-0.034)
[2023-12-21] MEDS: SODIUM CHLORIDE 3% 15ML NEB 3 ML IH (14:09)
--- NOTE | 2023-12-21 14:57 | P.DS_ITS ---
General Admission date:: 12/20/23 Discharge date: 12/21/23 HPI HPI HPI: Patient with past medical history of BPH, hypertension, anxiety, asplenia, diabetes, kidney tumor diagnosed April 2023. Patient status post hospitalization April 2023 for E. Faecalis bacteremia. Presents complaining of chills, malaise, weakness, feeling like I am going to , recliner sleeping, increased lower extremity swelling. Patient states that most symptoms have occurred for about a week, but worsened over the past 24 hours. present with patient emergency room and collaborates the story. Admits to chronic shortness of breath, which is slightly worsened over past few days. States his primary care physician gave him Lasix 20 mg as needed for swelling, and he has been taking Lasix daily for the past 7 days. Admits to increased recliner sleeping over the past month worse this week. Denies known sick contacts, recent travel, chest pain, palpitations, orthopnea, PND, abdominal pain, diarrhea. states that he has been unsteady on his feet, and holding onto stuff while walking at home. states the unsteadiness has gone on for past 24 hours. Hospital Course Hospital Course Hospital Course: Pleasant 82-year-old male with history of diabetes, hypertension, kidney tumor, anxiety. Patient suffered from Enterococcus faecalis bacteremia April 2023, was treated at this institution 05/04 to 05/09. Patient sent home on 2 weeks of vancomycin via PICC. Presents complaining of chills, malaise, feeling like I am going to , recliner sleeping, weakness. Symptoms defervesced overnight. Blood cultures remain negative at this time. Stable to discharge home with empiric 1 week of antibiotics. Given weakness, patient would benefit from home health for PT and OT to improve functionality and decrease risk for readmission. Problems addressed as follows: Systematic inflammatory response syndrome: -Patient presented with leukocytosis of 25,000. Mild elevation of CRP. Previous presentation earlier this year that was similar or patient turned out to be positive with E faecalis in his blood. As he is asplenic, will admit for empiric antibiotics and monitoring of blood cultures. Showed improvement overnight. White count improving at 20,000 by morning. Patient remained afebrile. No nausea or vomiting. Tolerating p.o. intake. Vital stable. Stable on room air. Workup with scans of head chest abdomen and pelvis did not show any focal source of infection or concerning findings. Urine unremarkable. Will continue levofloxacin to complete 1 week of antibiotics while we continue to monitor blood cultures. Stable to discharge home. Of note, admission HIV nonreactive. Comprehensive respiratory panel negative. Diabetes: - Hemoglobin A1c 7.5 on 12/19 implying good diabetes control. I ordered sliding scale insulin, and ACHS Accu-Cheks. Will continue home Tradjenta 5 mg p.o. daily. Diabetic diet. Patient's [id number] blood sugar 191 mg/dL at 2159 on day of admission. Blood sugar on admission BMP 200. Blood sugar morning of discharge 147. Elevated BNP rule out CHF: ? Patient admits to taking Lasix 20 mg p.o. daily for past 7 days due to increased swelling. States his primary care physician gave him a standing prescription for Lasix 20 mg daily as needed. Also admits to requiring sleeping. BMP 445 on 12/20/2023. Echo obtained, no signs of heart failure at this time. EF preserved. Admission EKG showed right axis deviation with V3 T wave inversion without signs of STEMI. CAD prophylaxis: Continue aspirin 81 mg p.o. Hypertension: Resume home regimen at discharge including Lasix 20 mg daily, HCTZ 5 mL grams daily, lisinopril 10 mg daily, and metoprolol tartrate 100 mg twice daily Renal cancer: Follows with . Due for scans in the next week. CT this visit showed enlarging mass. Defer further management to oncology at . Anxiety: Continue patient's home alprazolam 1 mg nightly and escitalopram 10 mg p.o. daily Hypothyroidism: Continue Synthroid 50 mg p.o. daily BPH continue tamsulosin 0.4 p.o. daily Weakness: Order PT/OT evaluation during hospitalization. Would benefit from home health. Home health ordered to discharge. Total time spent on discharge 32 minutes in counseling, documentation, chart review, and direct care with patient. Exam Data for Last 24 hours Vital signs and Labs for Last 24 Hours: Temp Pulse Resp BP Pulse Ox O2 Del Method 98 F 63 16 115/60 94 L Room Air 12/21/23 12:00 12/21/23 14:10 12/21/23 14:10 12/21/23 12:00 12/21/23 12:00 12/21/23 10:40 Laboratory Results - last 24 hr 12/20/23 17:20: WBC 25.5 H*, RBC 4.62, Hgb 15.0, Hct 48.2, MCV 104.4 H, MCH 32.5 H, MCHC 31.1 L, RDW 13.9, Plt Count 300, MPV 8.4, Neut % (Auto) 91.1 H, Lymph % (Auto) 3.9 L, [place] % (Auto) 3.5, Eos % (Auto) 1.0, Baso % (Auto) 0.4, Neut # (Auto) 23.2 H, Lymph # (Auto) 1.0, [place] # (Auto) 0.9, Eos # (Auto) 0.3, Baso # (Auto) 0.1, Total Counted 100, Neutrophils % (Manual) 86 H, Band Neutrophils % 1.0, Lymphocytes % (Manual) 10, Monocytes % (Manual) 3, Platelet Estimate Normal, Anisocytosis 1+, Macrocytosis 1+, Sodium 134 L, Potassium 4.3, Chloride 97 L, Carbon Dioxide 35 H, Anion Gap 6.3, BUN 30 H, Creatinine 1.20, Estimated Creat Clear 93, Estimated GFR 58 L, Est GFR ( Amer) 70, Glucose 200 H, Hemoglobin A1c 7.5 H, Calcium 10.6 H, Total Bilirubin 1.7 H, AST 22, ALT 20, Alkaline Phosphatase 60, NT-Pro-B Natriuret Pep 445, Total Protein 8.2 D, Albumin 4.2, Globulin 4.0 H, Albumin/Globulin Ratio 1.1, Procalcitonin 0.080, HIV 1&2 Antibody Rapid Nonreactive 12/20/23 17:50: Lactate 1.5, C-Reactive Protein 24.7 H, Urine Color Yellow, Urine Appearance Clear, Urine pH 6.0, Ur Specific [place] 1.015, Urine Protein Negative, Urine Glucose (UA) Negative, Urine Ketones Negative, Urine Blood Trace-i, Urine Nitrate Negative, Urine Bilirubin Negative, Urine Urobilinogen 1.0, Ur Leukocyte Esterase Negative, Urine RBC 5-10, Urine WBC 3-5, Ur Squamous Epith Cells Occasional, Urine Bacteria 1+ 12/20/23 21:00: Chlamy pneumoniae PCR Not detected, Adenovirus (PCR) Not detected, B. pertussis DNA (PCR) Not detected, Coronavirus OC43 (PCR) Not detected, Coronavirus HKU1 (PCR) Not detected, Coronavirus 229E (PCR) Not detected, SARS-CoV-2 (PCR) Not detected, Coronavirus NL63 (PCR) Not detected, Human Metapneumovir PCR Not detected, Influenza A (H1) PCR Not detected, Influ A (H1N1/09) PCR Not detected, Influenza A (H3) PCR Not detected, Influenza Type A (PCR) Not detected, Influenza Type B (PCR) Not detected, M. pneumoniae (PCR) Not detected, Parainfluenza 1 (PCR) Not detected, Parainfluenza 2 (PCR) Not detected, Parainfluenza 3 (PCR) Not detected, Parainfluenza 4 (PCR) Not detected, RSV (PCR) Not detected, Entero/Rhino (PCR) Not detected 12/20/23 21:59: POC Glucose 191 H 12/21/23 05:19: POC Glucose 147 H 12/21/23 05:43: WBC 20.9 H*, RBC 4.11 L, Hgb 13.2 L D, Hct 42.2, MCV 102.7 H, MCH 32.3 H, MCHC 31.5 L, RDW 14.0, Plt Count 282, MPV 8.8, Neut % (Auto) 85.6 H, Lymph % (Auto) 8.3 L, [place] % (Auto) 5.4, Eos % (Auto) 0.3, Baso % (Auto) 0.4, Neut # (Auto) 17.9 H, Lymph # (Auto) 1.7, [place] # (Auto) 1.1 H, Eos # (Auto) 0.1, Baso # (Auto) 0.1, Total Counted 100, Neutrophils % (Manual) 81 H, Lymphocytes % (Manual) 18, Monocytes % (Manual) 1 L, Platelet Estimate Normal, RBC Morphology Not Reportable, Macrocytosis 1+, Sodium 130 L, Potassium 3.4 L D, Chloride 99, Carbon Dioxide 31 H, Anion Gap 3.4 L, BUN 29 H, Creatinine 1.40 H, Estimated Creat Clear 80, Estimated GFR 49 L, Est GFR ( Amer) 59, Glucose 147 H D, Calcium 9.7, Magnesium 1.4 L, Total Bilirubin 1.6 H, AST 19, ALT 15, Alkaline Phosphatase 45, Troponin I 0.05 H, C-Reactive Protein 96.2 H D, Total Protein 6.4, Albumin 3.3 L D, Globulin 3.1, Albumin/Globulin Ratio 1.1, Procalcitonin 0.257 12/21/23 11:49: POC Glucose 168 H 12/21/23 12:15: Troponin I 0.03 I & O for Last 24 hours: Intake & Output 12/18/23 12/19/23 12/20/23 12/21/23 23:59 23:59 23:59 23:59 Intake Total 1550 / 1550 770 / 770 Output Total 100 / 100 Balance 1548 / 1548 670 / 670 Weight 136.07 kg 136.07 kg Constitutional Constitutional: no acute distress, obese, chronically ill appearing and cooperative *Routine HEENT Exam Head: Present normocephalic Eye: Present EOMI and PERRL ENT: Present mucous membranes moist *Routine Neck Exam Neck: Present supple; Absent lymphadenopathy *Routine Respiratory Exam Respiratory: Present CTA bilaterally; Absent rhonchi, wheezes or crackles *Routine Cardiovascular Exam Cardiovascular: Present RRR; Absent murmur *Routine Abdominal Exam Abdominal: Present soft and normoactive bowel sounds; Absent tenderness *Routine Rectal Exam Patient deferred: visual exam *Routine Exam Patient deferred: penile exam *Routine Extremities Exam Extremities: Absent cyanosis, clubbing or edema *Routine Skin Exam Skin: Present warm; Absent rash *Routine Neurological Exam Neurological: Present alert, oriented X3 and moving all extremities; Absent altered mental status Comments: Generalized weakness Results Data Completed and Pending Labs on day of discharge: Labs from last 24 hours 12/21/23 12/21/23 12/21/23 12:15 11:49 05:43 WBC 20.9 H* RBC 4.11 L Hgb 13.2 L D Hct 42.2 MCV 102.7 H MCH 32.3 H MCHC 31.5 L RDW 14.0 Plt Count 282 MPV 8.8 Neut % (Auto) 85.6 H Lymph % (Auto) 8.3 L [place] % (Auto) 5.4 Eos % (Auto) 0.3 Baso % (Auto) 0.4 Neut # (Auto) 17.9 H Lymph # (Auto) 1.7 [place] # (Auto) 1.1 H Eos # (Auto) 0.1 Baso # (Auto) 0.1 Total Counted 100 Neutrophils % (Manual) 81 H Band Neutrophils % Lymphocytes % (Manual) 18 Monocytes % (Manual) 1 L Platelet Estimate Normal RBC Morphology Not Reportable Anisocytosis Macrocytosis 1+ Sodium 130 L Potassium 3.4 L D Chloride 99 Carbon Dioxide 31 H Anion Gap 3.4 L BUN 29 H Creatinine 1.40 H Estimated Creat Clear 80 Estimated GFR 49 L Est GFR ( Amer) 59 Glucose 147 H D POC Glucose 168 H Hemoglobin A1c Lactate Calcium 9.7 Magnesium 1.4 L Total Bilirubin 1.6 H AST 19 ALT 15 Alkaline Phosphatase 45 Troponin I 0.03 0.05 H C-Reactive Protein 96.2 H D NT-Pro-B Natriuret Pep Total Protein 6.4 Albumin 3.3 L D Globulin 3.1 Albumin/Globulin Ratio 1.1 Procalcitonin 0.257 Urine Color Urine Appearance Urine pH Ur Specific [place] Urine Protein Urine Glucose (UA) Urine Ketones Urine Blood Urine Nitrate Urine Bilirubin Urine Urobilinogen Ur Leukocyte Esterase Urine RBC Urine WBC Ur Squamous Epith Cells Urine Bacteria Chlamy pneumoniae PCR Adenovirus (PCR) B. pertussis DNA (PCR) Coronavirus OC43 (PCR) Coronavirus HKU1 (PCR) Coronavirus 229E (PCR) SARS-CoV-2 (PCR) Coronavirus NL63 (PCR) HIV 1&2 Antibody Rapid Human Metapneumovir PCR Influenza A (H1) PCR Influ A (H1N1/) PCR Influenza A (H3) PCR Influenza Type A (PCR) Influenza Type B (PCR) M. pneumoniae (PCR) Parainfluenza 1 (PCR) Parainfluenza 2 (PCR) Parainfluenza 3 (PCR) Parainfluenza 4 (PCR) RSV (PCR) Entero/Rhino (PCR) 12/21/23 12/20/23 12/20/23 05:19 21:59 21:00 WBC RBC Hgb Hct MCV MCH MCHC RDW Plt Count MPV Neut % (Auto) Lymph % (Auto) [place] % (Auto) Eos % (Auto) Baso % (Auto) Neut # (Auto) Lymph # (Auto) [place] # (Auto) Eos # (Auto) Baso # (Auto) Total Counted Neutrophils % (Manual) Band Neutrophils % Lymphocytes % (Manual) Monocytes % (Manual) Platelet Estimate RBC Morphology Anisocytosis Macrocytosis Sodium Potassium Chloride Carbon Dioxide Anion Gap BUN Creatinine Estimated Creat Clear Estimated GFR Est GFR ( Amer) Glucose POC Glucose 147 H 191 H Hemoglobin A1c Lactate Calcium Magnesium Total Bilirubin AST ALT Alkaline Phosphatase Troponin I C-Reactive Protein NT-Pro-B Natriuret Pep Total Protein Albumin Globulin Albumin/Globulin Ratio Procalcitonin Urine Color Urine Appearance Urine pH Ur Specific [place] Urine Protein Urine Glucose (UA) Urine Ketones Urine Blood Urine Nitrate Urine Bilirubin Urine Urobilinogen Ur Leukocyte Esterase Urine RBC Urine WBC Ur Squamous Epith Cells Urine Bacteria Chlamy pneumoniae PCR Not detected Adenovirus (PCR) Not detected B. pertussis DNA (PCR) Not detected Coronavirus OC43 (PCR) Not detected Coronavirus HKU1 (PCR) Not detected Coronavirus 229E (PCR) Not detected SARS-CoV-2 (PCR) Not detected Coronavirus NL63 (PCR) Not detected HIV 1&2 Antibody Rapid Human Metapneumovir PCR Not detected Influenza A (H1) PCR Not detected Influ A (H1N1/) PCR Not detected Influenza A (H3) PCR Not detected Influenza Type A (PCR) Not detected Influenza Type B (PCR) Not detected M. pneumoniae (PCR) Not detected Parainfluenza 1 (PCR) Not detected Parainfluenza 2 (PCR) Not detected Parainfluenza 3 (PCR) Not detected Parainfluenza 4 (PCR) Not detected RSV (PCR) Not detected Entero/Rhino (PCR) Not detected 12/20/23 12/20/23 17:50 17:20 WBC 25.5 H* RBC 4.62 Hgb 15.0 Hct 48.2 MCV 104.4 H MCH 32.5 H MCHC 31.1 L RDW 13.9 Plt Count 300 MPV 8.4 Neut % (Auto) 91.1 H Lymph % (Auto) 3.9 L [place] % (Auto) 3.5 Eos % (Auto) 1.0 Baso % (Auto) 0.4 Neut # (Auto) 23.2 H Lymph # (Auto) 1.0 [place] # (Auto) 0.9 Eos # (Auto) 0.3 Baso # (Auto) 0.1 Total Counted 100 Neutrophils % (Manual) 86 H Band Neutrophils % 1.0 Lymphocytes % (Manual) 10 Monocytes % (Manual) 3 Platelet Estimate Normal RBC Morphology Anisocytosis 1+ Macrocytosis 1+ Sodium 134 L Potassium 4.3 Chloride 97 L Carbon Dioxide 35 H Anion Gap 6.3 BUN 30 H Creatinine 1.20 Estimated Creat Clear 93 Estimated GFR 58 L Est GFR ( Amer) 70 Glucose 200 H POC Glucose Hemoglobin A1c 7.5 H Lactate 1.5 Calcium 10.6 H Magnesium Total Bilirubin 1.7 H AST 22 ALT 20 Alkaline Phosphatase 60 Troponin I C-Reactive Protein 24.7 H NT-Pro-B Natriuret Pep 445 Total Protein 8.2 D Albumin 4.2 Globulin 4.0 H Albumin/Globulin Ratio 1.1 Procalcitonin 0.080 Urine Color Yellow Urine Appearance Clear Urine pH 6.0 Ur Specific [place] 1.015 Urine Protein Negative Urine Glucose (UA) Negative Urine Ketones Negative Urine Blood Trace-i Urine Nitrate Negative Urine Bilirubin Negative Urine Urobilinogen 1.0 Ur Leukocyte Esterase Negative Urine RBC 5-10 Urine WBC 3-5 Ur Squamous Epith Cells Occasional Urine Bacteria 1+ Chlamy pneumoniae PCR Adenovirus (PCR) B. pertussis DNA (PCR) Coronavirus OC43 (PCR) Coronavirus HKU1 (PCR) Coronavirus 229E (PCR) SARS-CoV-2 (PCR) Coronavirus NL63 (PCR) HIV 1&2 Antibody Rapid Nonreactive Human Metapneumovir PCR Influenza A (H1) PCR Influ A (H1N1/09) PCR Influenza A (H3) PCR Influenza Type A (PCR) Influenza Type B (PCR) M. pneumoniae (PCR) Parainfluenza 1 (PCR) Parainfluenza 2 (PCR) Parainfluenza 3 (PCR) Parainfluenza 4 (PCR) RSV (PCR) Entero/Rhino (PCR) DS: Diagnosis Discharge Diagnosis (1) SIRS (systemic inflammatory response syndrome): Status: Acute Code(s): R65.10 - Systemic inflammatory response syndrome (SIRS) of non-infectious origin without acute organ dysfunction (2) Renal cancer: Status: Acute Code(s): C64.9 - Malignant neoplasm of unspecified kidney, except renal pelvis (3) Diabetes: Status: Acute Code(s): E11.9 - Type 2 diabetes mellitus without complications (4) Elevated brain natriuretic peptide (BNP) level: Status: Acute Code(s): R79.89 - Other specified abnormal findings of blood chemistry (5) HTN (hypertension): Status: Acute Code(s): I10 - Essential (primary) hypertension Qualifiers: Hypertension type: unspecified Qualified Code(s): I10 - Essential (primary) hypertension (6) Anxiety: Status: Acute Code(s): F41.9 - Anxiety disorder, unspecified Meds Home Medications and Allergies Home Medications ?Medication ?Instructions ?Recorded ?Confirmed ?Type alprazolam 1 mg tablet 1 mg PO HS PRN Anxiety 05/04/23 12/20/23 History escitalopram oxalate 10 mg tablet 10 mg PO DAILY 05/04/23 12/21/23 History hydrochlorothiazide 25 mg tablet 25 mg PO DAILY 05/04/23 12/20/23 History levothyroxine 50 mcg tablet 50 mcg PO DAILY Thyroid 05/04/23 12/20/23 History linagliptin 5 mg tablet (Tradjenta) 5 mg PO DAILY 05/04/23 12/20/23 History lisinopril 10 mg tablet 10 mg PO DAILY 05/04/23 12/20/23 History metoprolol tartrate 100 mg tablet 100 mg PO BID 05/04/23 12/20/23 History tamsulosin 0.4 mg capsule 0.4 mg PO HS 05/04/23 12/21/23 History tramadol 50 mg tablet 50 mg PO BIDP PRN Moderate Pain 05/04/23 12/20/23 History (Scale Score 5-6) furosemide 20 mg tablet 20 mg PO DAILY 30 days #0 tabs 05/09/23 12/20/23 Rx aspirin 81 mg tablet,delayed 81 mg PO DAILY 12/20/23 12/20/23 History release levofloxacin 750 mg tablet 750 mg PO DAILY 5 days #5 tabs 12/21/23 Rx New Prescriptions to Start Prescriptions: levofloxacin Vinay Chandler Allergies Allergy/AdvReac Type Severity Reaction Status Date / Time No Known Allergies Allergy Verified 09/27/19 16:26 Discharge Plan Disposition Patient Disposition: Home Health Service Condition: Good Discharge Order Discharge Orders: Discharge Order (Routine); Ordered 12/21/23 Ordered By: Vinay Chandler Follow up Plan Follow up with: Marlyn Ortega [Primary Care Provider] - 12/26/23 2:30 pm Prescriptions/Medication Reconciliation: New levofloxacin 750 mg tablet 750 mg PO DAILY 5 Days Qty: 5 0RF Rx Instructions: first dose 12/22/23 Continued aspirin 81 mg Tablet,Delayed Release (Dr/Ec) 81 mg PO DAILY alprazolam 1 mg tablet 1 mg PO HS PRN (Reason: Anxiety) metoprolol tartrate 100 mg tablet 100 mg PO BID tramadol 50 mg tablet 50 mg PO BIDP PRN (Reason: Moderate Pain (Scale Score 5-6)) tamsulosin 0.4 mg capsule 0.4 mg PO HS levothyroxine 50 mcg tablet 50 mcg PO DAILY lisinopril 10 mg tablet 10 mg PO DAILY hydrochlorothiazide 25 mg tablet 25 mg PO DAILY escitalopram oxalate 10 mg tablet 10 mg PO DAILY Tradjenta 5 mg tablet 5 mg PO DAILY furosemide 20 mg tablet 20 mg PO DAILY 30 Days Qty: 0 0RF Problem Reconciliation Problems Reviewed?: Yes Patient Discharge Instructions ACTIVITY: Continue current activity DIET: continue same diet Patient Instructions: DI for Muscle Weakness Print Language: [place] Providers Primary Care Provider: Marlyn Ortega Admit Provider: Vinay Chandler Attending Provider: Vinay Chandler
[2023-12-21] MEDS: LEVOFLOXACIN/D5W 750 MG/150 ML 750 MG/150 ML PIGGYBACK 100 MG IV (15:27)
[2023-12-22 07:13] LABS: HCV Ab Non Reactive (Non Reactive)
--- NOTE | 2023-12-22 13:20 | SW/DCPLANNER ---
Hospital follow up phone call: patient stated that he is doing well at home, was able to mixing picker tender new medication and is aware of follow up appointments. Patient stated that home health did make contact regarding start of care. Patient did not have any further needs/questions at this time.
[2023-12-22 18:02] LABS: Peripheral Smear Review Scanned Result
== END 2023-12-21 17:15 | disposition home health service (06) ==
LOC: ER 18:20 → 2ND 19:15
PROVIDERS: Internal Medicine; Physician Assistant; Admitting Provider Internal Medicine Adolescent Medicine; Emergency Provider Emergency Medicine; PCP Nurse Practitioner Family; Visit Provider Internal Medicine Adolescent Medicine
DX: R65.10 Systemic inflammatory response syndrome (SIRS) of non-infectious origin without acute organ dysfunction (principal); E11.9 Type 2 diabetes mellitus without complications; R79.89 Other specified abnormal findings of blood chemistry; I10 Essential (primary) hypertension; F41.9 Anxiety disorder, unspecified; C64.9 Malignant neoplasm of unspecified kidney, except renal pelvis; Z79.899 Other long term (current) drug therapy; I25.10 Atherosclerotic heart disease of native coronary artery without angina pectoris
CPT/HCPCS: 36415; 70450; 71045; 71260; 74177; 80053; 81001; 82962; 83036; 83605; 83735; 83880; 84145; 84484; 85007; 85025; 86140; 86803; 87040; 87265; 87389; 87486; 87581; 87632; 87635; 93005; 93306; 97163; 97165; 99291; G0378; J0692; J1650; J1956; J3370; J7120; Q9967

== ENCOUNTER 2024-03-19 16:56 | Emergency (ER) | payer MEDICARE, SELFPAY ==
--- NOTE | 2024-03-19 17:07 | EXP.UTC ---
Discharge Plan Disposition Patient Disposition: Home, Self-Care Condition: Good Prescriptions Prescriptions: New cefdinir 300 mg capsule 300 mg PO BID Qty: 20 0RF No Action aspirin 81 mg Tablet,Delayed Release (Dr/Ec) 81 mg PO DAILY levofloxacin 750 mg tablet 750 mg PO DAILY 5 Days Qty: 5 0RF Rx Instructions: first dose 12/22/23 alprazolam 1 mg tablet 1 mg PO HS PRN (Reason: Anxiety) metoprolol tartrate 100 mg tablet 100 mg PO BID tramadol 50 mg tablet 50 mg PO BIDP PRN (Reason: Moderate Pain (Scale Score 5-6)) tamsulosin 0.4 mg capsule 0.4 mg PO HS levothyroxine 50 mcg tablet 50 mcg PO DAILY lisinopril 10 mg tablet 10 mg PO DAILY hydrochlorothiazide 25 mg tablet 25 mg PO DAILY escitalopram oxalate 10 mg tablet 10 mg PO DAILY Tradjenta 5 mg tablet 5 mg PO DAILY furosemide 20 mg tablet 20 mg PO DAILY 30 Days Qty: 0 0RF Referrals Follow up/Referrals: Marlyn Ortega [Primary Care Provider] - See instructions Activity Restrictions/Add. Instructions Additional Instructions/Restrictions: Take tylenol for pain or fever. Take the medications as directed. Follow up with your regular doctor. GO TO THE ER FOR ANY WORSENING SYMPTOMS Clinical Impressions Clinical Impression: Sinusitis Instructions Patient Instructions: Sinusitis, DI for Sinusitis Print Language Print Language: Kiswahili Discharge ED Provider: Vinay Pryor [facility] [place] HPI General Stated complaint: chills, cough, body aches Time Seen by Provider: 03/19/24 17:07 Related Data Home Medications ?Medication ?Instructions ?Recorded ?Confirmed alprazolam 1 mg tablet 1 mg PO HS PRN Anxiety 05/04/23 12/20/23 escitalopram oxalate 10 mg tablet 10 mg PO DAILY 05/04/23 12/21/23 hydrochlorothiazide 25 mg tablet 25 mg PO DAILY 05/04/23 12/20/23 levothyroxine 50 mcg tablet 50 mcg PO DAILY Thyroid 05/04/23 12/20/23 linagliptin 5 mg tablet (Tradjenta) 5 mg PO DAILY 05/04/23 12/20/23 lisinopril 10 mg tablet 10 mg PO DAILY 05/04/23 12/20/23 metoprolol tartrate 100 mg tablet 100 mg PO BID 05/04/23 12/20/23 tamsulosin 0.4 mg capsule 0.4 mg PO HS 05/04/23 12/21/23 tramadol 50 mg tablet 50 mg PO BIDP PRN Moderate Pain 05/04/23 12/20/23 (Scale Score 5-6) aspirin 81 mg tablet,delayed 81 mg PO DAILY 12/20/23 12/20/23 release Previous Rx's ?Medication ?Instructions ?Recorded furosemide 20 mg tablet 20 mg PO DAILY 30 days #0 tabs 05/09/23 levofloxacin 750 mg tablet 750 mg PO DAILY 5 days #5 tabs 12/21/23 cefdinir 300 mg capsule 300 mg PO BID #20 caps 03/19/24 Allergies Allergy/AdvReac Type Severity Reaction Status Date / Time No Known Allergies Allergy Verified 09/27/19 16:26 [facility] Disclaimer: The information contained in this section may have been updated after the patient was seen, as this information can be updated by other users. Surgical History History of splenectomy Family History Other Family history of heart disease Social History (Updated 12/20/23 @ 20:09 by Rupa Horton RN) Smoking Status: Former smoker alcohol intake: never current occupational status: retired Travel in the last 8 weeks: None Have you lived/traveled outside [place] in past 30 days?: No Contact w/someone who lives/traveled outside [place] past 30 days?: No Exposure to someone with infectious disease in past 14 days?: No Do you have a fever (greater than 100.4 F or 38 C)?: No Have you tested positive for COVID-19: No Exposed to someone with COVID-19 in past 14 days?: No Do you have a sore throat?: No Do you have a cough?: Yes Do you have any weakness?: No Do you have any diarrhea?: No Are you experiencing any unusual bleeding?: No Do you have any muscle aches/pain?: Yes Do you have any abdominal pain?: No Are you experiencing loss of taste or smell?: No ROS Obtained: Yes All systems reviewed & no additional complaints except as documented Constitutional Constitutional: Reports poor appetite Eyes Eyes: Reports system reviewed and no additional complaints, except as documented ENT Ears, Nose, Mouth, and Throat: Reports as per HPI Cardiovascular Cardiovascular: Reports system reviewed and no additional complaints, except as documented and Denies chest pain Respiratory Respiratory: Denies shortness of breath, Denies chest congestion, Reports cough, Denies stridor and Denies wheezing Gastrointestinal Gastrointestingal: Reports system reviewed and no additional complaints, except as documented; Denies abdominal pain, diarrhea or vomiting Musculoskeletal Musculoskeletal: Reports system reviewed and no additional complaints, except as documented and Denies arthralgias Integumentary/Breasts Skin/Breast: Reports system reviewed and no additional complaints, except as documented and Denies rash Neurologic Neurologic: Denies paresthesias Allergic/Immunologic Allergic/Immunologic: Denies wheezing Physical Exam General General appearance: alert and in no apparent distress Eye Eye exam: Present normal appearance, PERRL and EOMI ENT ENT exam: Present mucous membranes moist and normal external ear exam Expanded ENT Exam External ear exam: Present normal external inspection TM/Canal exam: Bilateral TM: erythema and bulging Nose exam: Absent sinus tenderness Nasal speculum exam: Bilateral: normal Mouth exam: Present normal external inspection; Absent drooling Teeth exam: Present normal inspection Throat exam: Present tonsillar erythema and tonsillomegaly Neck Neck exam: Present normal inspection, full ROM and trachea midline; Absent tenderness, lymphadenopathy or thyromegaly Chest Chest inspection: Present normal inspection and symmetric chest wall rise; Absent tenderness or rash Respiratory Respiratory exam: Present normal lung sounds bilaterally; Absent respiratory distress, wheezes, stridor or accessory muscle use Cardiovascular Cardiovascular exam: Present regular rate, normal rhythm and normal heart sounds Abdominal Exam Abdominal exam: Present soft; Absent distention, tenderness, guarding, rebound or rigidity Extremities Exam Extremities exam: Present normal inspection, full ROM and normal capillary refill; Absent tenderness or calf tenderness Back Exam Back exam: Present normal inspection and full ROM; Absent tenderness Neurological Exam Neurological exam: Present alert and oriented X3 Psychiatric Psychiatric exam: Present normal affect and normal mood Skin Skin exam: Present warm, dry, intact and normal color Lymphatic Lymphatic Findings: no adenopathy Medical Decision Making Medical Records Medical records reviewed: No I reviewed the patient's medical records. Screening: Per USPSTF and CDC recommendations, given the prevalence of disease in our region, it is our hospital?s policy to screen for HIV and viral Hepatitis for all patients aged 18 and over and those with ongoing risk factors. Rich Inquiry Pt receiving controlled substance: No Lab Data Lab results reviewed: Yes I reviewed the patient's lab results. 03/19/24 17:49 03/19/24 17:49
--- NOTE | 2024-03-19 17:14 | XR_ITS ---
PROCEDURE INFORMATION: Exam: XR Chest Exam date and time: 03/19/2024 5:26 PM Age: 83 years old Clinical indication: Cough and shortness of breath and other: Chills; Additional info: SOA TECHNIQUE: Imaging protocol: Radiologic exam of the chest. Views: 2 views. COMPARISON: 1. CT CHEST W CON 12/20/2023 6:43 PM 2. CR XR CHEST PORTABLE 12/20/2023 6:11 PM 3. CR XR CHEST PORTABLE PICC PLAC 05/09/2023 8:56 AM FINDINGS: Lungs: Bilateral bandlike densities in the mid lung ramírez and left lung base compatible with fibro atelectatic changes redemonstrated. Lungs are otherwise clear. Pleural spaces: Unremarkable. No pleural effusion. No pneumothorax. Heart/Mediastinum: Unremarkable. No cardiomegaly. Diaphragm: Chronic elevation left hemidiaphragm again noted. 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 IMPRESSION: Stable chest x-ray with no acute disease.
[2024-03-19 17:16] VITALS: BP 178/77; PULSE 98; RESP 18; TEMP 36.8; O2SAT 93; BMI 38.5
[2024-03-19 17:23] LABS: UTC Influenza A Antigen Negative (Negative)
[2024-03-19 17:24] LABS: UTC Influenza B Antigen Negative (Negative)
[2024-03-19 18:02] LABS: White Blood Count 13.6 K/mm3 (4.8-10.8)
[2024-03-19 18:03] LABS: Basophils % 0.4 % (0.1-2.0); Eosinophils % 2.6 % (0.1-12.0); Hematocrit 42.4 % (42.0-52.0); Hemoglobin 14.2 g/dL (14.1-18.0); Lymphocytes % 17.2 % (10-50); Mean Corpuscular HGB Conc 33.5 g/dL (31.8-35.4); Mean Corpuscular Hemoglobin 30.9 pg (27.0-31.2); Mean Corpuscular Volume 92.2 fl (80-94); Mean Platelet Volume 9.4 fl (7.4-10.4); Monocytes % 9.9 % (1.7-9.3); Neutrophils # 9.4 K/mm3 (1.8-7.8); Neutrophils % 69.4 % (37.0-80.0); Platelet Count 259 K/mm3 (142-424)
[2024-03-19 18:04] LABS: Basophils # 0.1 K/mm3 (0-0.2); Eosinophils # 0.4 K/mm3 (0.0-0.4); Lymphocytes # 2.3 K/mm3 (0.7-4.5); Monocytes # 1.3 K/mm3 (0.1-1.0)
[2024-03-19 18:35] LABS: Chloride 99 mmol/L (98-107); Sodium 133 mmol/L (136-145)
[2024-03-19 18:36] LABS: Potassium 4.2 mmoL/L (3.5-5.1)
[2024-03-19 18:38] LABS: Blood Urea Nitrogen 22 mg/dl (9-20); Creatinine Clearance Estimated 100 mL/min (50-200); Estimated Glomerular Filt Rate 64 ml/min (>60); GFR (African American) 78 ML/MIN (>60)
[2024-03-19 18:39] LABS: Anion Gap 7.2 mEq/L (5-15); Calcium 9.1 mg/dl (8.4-10.2); Carbon Dioxide 31 mmol/L (22.0-30.0); Glucose 274 mg/dl (74-100)
[2024-03-19 18:58] VITALS: BP 178/77; PULSE 98; RESP 18; TEMP 36.8
[2024-03-19 19:03] LABS: Coronavirus 19, PCR Not Detected (NotDetected); Influenza A, PCR Not Detected (NotDetected); Influenza B, PCR Not Detected (NotDetected)
[2024-03-19] MEDS: CEFDINIR 300MG CAPSULE 300 MG PO (19:03)
== END 2024-03-19 19:05 | disposition home or self-care (01) ==
PROVIDERS: Emergency Provider Nurse Practitioner Family; PCP Nurse Practitioner Family
DX: J32.9 Chronic sinusitis, unspecified (principal); R05.9 Cough, unspecified; M79.10 Myalgia, unspecified site; R63.8 Other symptoms and signs concerning food and fluid intake; R68.83 Chills (without fever)
CPT/HCPCS: 71046; 80048; 85025; 87636; 87804; 99212; G0381

== ENCOUNTER 2024-04-23 14:40 | Outpatient (CLI) | payer MEDICARE, SELFPAY ==
[2024-04-23 15:25] LABS: Basophils # 0.1 K/mm3 (0-0.2); Basophils % 0.6 % (0.1-2.0); Eosinophils # 0.3 K/mm3 (0.0-0.4); Eosinophils % 2.7 % (0.1-12.0); Hematocrit 41.5 % (42.0-52.0); Hemoglobin 13.5 g/dL (14.1-18.0); Lymphocytes # 1.7 K/mm3 (0.7-4.5); Lymphocytes % 17.3 % (10-50); Mean Corpuscular HGB Conc 32.5 g/dL (31.8-35.4); Mean Corpuscular Hemoglobin 30.7 pg (27.0-31.2); Mean Corpuscular Volume 94.3 fl (80-94); Mean Platelet Volume 9.8 fl (7.4-10.4); Monocytes # 0.9 K/mm3 (0.1-1.0); Neutrophils % 69.7 % (37.0-80.0); Platelet Count 259 K/mm3 (142-424); Red Cell Distribution Width 14.9 % (11.5-17.5); White Blood Count 10.1 K/mm3 (4.8-10.8)
[2024-04-23 15:43] LABS: Alanine Aminotransferase 15 U/L (12-78); Albumin Level 3.4 g/dl (3.5-5.0); Alkaline Phosphatase 69 U/L (38-126); Anion Gap 11.8 mEq/L (5-15); Aspartate Amino Transferase 21 U/L (17-59); Bilirubin,Total 1.4 mg/dl (0.2-1.3); Blood Urea Nitrogen 20 mg/dl (9-20); Calcium 9.7 mg/dl (8.4-10.2); Carbon Dioxide 32 mmol/L (22.0-30.0); Chloride 98 mmol/L (98-107); Estimated Glomerular Filt Rate 64 ml/min (>60); GFR (African American) 78 ML/MIN (>60); Globulin 3.4 g/dL (1.3-3.2); Glucose 150 mg/dl (74-100); Potassium 4.8 mmoL/L (3.5-5.1); Sodium 137 mmol/L (136-145); Total Protein,Serum 6.8 g/dl (6.3-8.2)
[2024-04-23 15:59] LABS: T4 (Thyroxine) 10.9 ug/dl (5.53-11.0)
[2024-04-23 16:13] LABS: Thyroid Stimulating Hormone 5.24 uIU/mL (0.465-4.68)
== END 2024-04-23 23:59 | disposition home or self-care (01) ==
LOC: LAB 14:42
PROVIDERS: PCP Nurse Practitioner Family; Visit Provider Internal Medicine Medical Oncology
DX: C64.9 Malignant neoplasm of unspecified kidney, except renal pelvis (principal); C78.00 Secondary malignant neoplasm of unspecified lung; E11.9 Type 2 diabetes mellitus without complications; I10 Essential (primary) hypertension
CPT/HCPCS: 36415; 80053; 84436; 84443; 85025

== ENCOUNTER 2024-04-30 09:43 | Outpatient (CLI) | payer MEDICARE, SELFPAY ==
[2024-04-30 09:58] VITALS: BMI 38.5
[2024-04-30] MEDS: PEMBROLIZUMAB 200 MG in 0.9 % SODIUM CHLORIDE 50 ML 116 MG IV (10:15)
[2024-04-30] MEDS: SODIUM CHLORIDE 0.9% 50ML BAG 50 ML IV (10:15)
[2024-04-30 10:25] VITALS: BP 122/59; PULSE 56; RESP 18; O2SAT 95
[2024-04-30 11:00] VITALS: BP 125/48; PULSE 68
--- NOTE | 2024-05-01 16:08 | DIET.NUTRFU ---
Spoke to , had no dietary concerns. According to weight hx in chart-stable. Provided contact information for any future concerns
== END 2024-04-30 11:10 | disposition home or self-care (01) ==
LOC: INF 09:44
PROVIDERS: PCP Nurse Practitioner Family; Visit Provider Internal Medicine Medical Oncology
DX: C64.9 Malignant neoplasm of unspecified kidney, except renal pelvis (principal); C78.00 Secondary malignant neoplasm of unspecified lung
CPT/HCPCS: 82024; 82533; 96413; J9271

== ENCOUNTER 2024-05-23 08:27 | Outpatient (CLI) | payer MEDICARE, SELFPAY ==
[2024-05-23 08:32] VITALS: BMI 38.5
[2024-05-23 08:46] LABS: Basophils # 0.1 K/mm3 (0-0.2); Basophils % 0.9 % (0.1-2.0); Eosinophils # 0.4 K/mm3 (0.0-0.4); Eosinophils % 4.8 % (0.1-12.0); Hematocrit 44.1 % (42.0-52.0); Hemoglobin 14.5 g/dL (14.1-18.0); Lymphocytes # 1.4 K/mm3 (0.7-4.5); Lymphocytes % 14.7 % (10-50); Mean Corpuscular HGB Conc 32.9 g/dL (31.8-35.4); Mean Corpuscular Hemoglobin 29.7 pg (27.0-31.2); Mean Corpuscular Volume 90.4 fl (80-94); Mean Platelet Volume 9.2 fl (7.4-10.4); Monocytes % 10.4 % (1.7-9.3); Neutrophils # 6.3 K/mm3 (1.8-7.8); Neutrophils % 68.2 % (37.0-80.0); Platelet Count 320 K/mm3 (142-424); Red Blood Count 4.88 M/mm3 (4.60-6.20); Red Cell Distribution Width 14.6 % (11.5-17.5); White Blood Count 9.2 K/mm3 (4.8-10.8)
[2024-05-23 08:56] LABS: Alanine Aminotransferase 22 U/L (12-78); Albumin Level 3.5 g/dl (3.5-5.0); Albumin/Globulin Ratio 0.9 (1.1-1.8); Alkaline Phosphatase 89 U/L (38-126); Aspartate Amino Transferase 28 U/L (17-59); Bilirubin,Total 1.2 mg/dl (0.2-1.3); Blood Urea Nitrogen 24 mg/dl (9-20); Calcium 9.4 mg/dl (8.4-10.2); Carbon Dioxide 32 mmol/L (22.0-30.0); Chloride 98 mmol/L (98-107); Creatinine Clearance Estimated 73 mL/min (50-200); Estimated Glomerular Filt Rate 45 ml/min (>60); GFR (African American) 54 ML/MIN (>60); Globulin 4.1 g/dL (1.3-3.2); Glucose 372 mg/dl (74-100); Sodium 133 mmol/L (136-145); Total Protein,Serum 7.6 g/dl (6.3-8.2)
[2024-05-23 09:27] LABS: Thyroid Stimulating Hormone 3.67 uIU/mL (0.465-4.68)
[2024-05-23 09:42] VITALS: BP 124/56; PULSE 58; RESP 18; TEMP 36.6; O2SAT 93
[2024-05-23] MEDS: SODIUM CHLORIDE 0.9% 50ML BAG 50 ML IV (09:42)
[2024-05-23] MEDS: PEMBROLIZUMAB 200 MG in 0.9 % SODIUM CHLORIDE 50 ML 116 MG IV (09:42)
[2024-05-23] MEDS: SODIUM CHLORIDE 0.9% 10ML FLUSH SYRINGE 10 ML IV (09:43)
[2024-05-23 10:15] VITALS: BP 139/56; PULSE 62; RESP 18; O2SAT 95
[2024-05-24 14:11] LABS: Adrenocorticotropic Hormone 53.1 pg/mL (7.2-63.3)
== END 2024-05-23 10:15 | disposition home or self-care (01) ==
LOC: INF 08:28
PROVIDERS: PCP Nurse Practitioner Family; Visit Provider Internal Medicine Medical Oncology
DX: C64.1 Malignant neoplasm of right kidney, except renal pelvis (principal)
CPT/HCPCS: 80053; 82024; 82533; 84443; 85025; 96413; J9271

== ENCOUNTER 2024-06-18 08:26 | Outpatient (CLI) | payer MEDICARE, SELFPAY ==
[2024-06-18 08:28] VITALS: BMI 54.8
[2024-06-18 08:48] LABS: Basophils # 0.1 K/mm3 (0-0.2); Basophils % 0.6 % (0.1-2.0); Eosinophils # 0.4 K/mm3 (0.0-0.4); Eosinophils % 4.4 % (0.1-12.0); Hematocrit 43.2 % (42.0-52.0); Hemoglobin 14.4 g/dL (14.1-18.0); Lymphocytes # 1.5 K/mm3 (0.7-4.5); Lymphocytes % 16.9 % (10-50); Mean Corpuscular HGB Conc 33.3 g/dL (31.8-35.4); Mean Corpuscular Hemoglobin 28.9 pg (27.0-31.2); Mean Corpuscular Volume 86.7 fl (80-94); Mean Platelet Volume 8.9 fl (7.4-10.4); Monocytes % 11.6 % (1.7-9.3); Neutrophils # 5.8 K/mm3 (1.8-7.8); Neutrophils % 65.5 % (37.0-80.0); Platelet Count 319 K/mm3 (142-424); Red Blood Count 4.98 M/mm3 (4.60-6.20); White Blood Count 8.8 K/mm3 (4.8-10.8)
[2024-06-18 09:49] LABS: Alanine Aminotransferase 12 U/L (12-78); Albumin Level 3.4 g/dl (3.5-5.0); Albumin/Globulin Ratio 0.8 (1.1-1.8); Alkaline Phosphatase 59 U/L (38-126); Aspartate Amino Transferase 20 U/L (17-59); Bilirubin,Total 1.4 mg/dl (0.2-1.3); Blood Urea Nitrogen 19 mg/dl (9-20); Calcium 9.6 mg/dl (8.4-10.2); Carbon Dioxide 34 mmol/L (22.0-30.0); Chloride 98 mmol/L (98-107); Creatinine Clearance Estimated 37 mL/min (50-200); Estimated Glomerular Filt Rate 58 ml/min (>60); GFR (African American) 70 ML/MIN (>60); Globulin 4.2 g/dL (1.3-3.2); Glucose 212 mg/dl (74-100); Sodium 134 mmol/L (136-145); Total Protein,Serum 7.6 g/dl (6.3-8.2)
[2024-06-18] MEDS: 0.9 % SODIUM CHLORIDE 50 ML IV (10:01)
[2024-06-18 10:14] LABS: Anion Gap 6.8 mEq/L (5-15); Potassium 4.8 mmoL/L (3.5-5.1)
[2024-06-18 10:18] VITALS: BP 122/54; PULSE 54; RESP 20; TEMP 36.7; O2SAT 93
[2024-06-18] MEDS: PEMBROLIZUMAB 200 MG in 0.9 % SODIUM CHLORIDE 50 ML 116 MG IV (10:18)
[2024-06-18] MEDS: SODIUM CHLORIDE 0.9% 10ML FLUSH SYRINGE 10 ML IV (10:27)
[2024-06-18 10:54] VITALS: BP 133/64; PULSE 54; RESP 20; O2SAT 93
[2024-06-18 11:05] LABS: Thyroid Stimulating Hormone 4.11 uIU/mL (0.465-4.68)
== END 2024-06-18 11:00 | disposition home or self-care (01) ==
LOC: INF 08:27
PROVIDERS: PCP Nurse Practitioner Family; Visit Provider Internal Medicine Medical Oncology
DX: C64.9 Malignant neoplasm of unspecified kidney, except renal pelvis (principal); C78.00 Secondary malignant neoplasm of unspecified lung
CPT/HCPCS: 80053; 82024; 82533; 84443; 85025; 96413; J9271

== ENCOUNTER 2024-07-09 08:38 | Outpatient (CLI) | payer MEDICARE, SELFPAY ==
[2024-07-09 08:43] VITALS: BMI 37.5
[2024-07-09 09:00] LABS: Basophils # 0.1 K/mm3 (0-0.2); Basophils % 0.7 % (0.1-2.0); Eosinophils # 0.4 K/mm3 (0.0-0.4); Hematocrit 41.3 % (42.0-52.0); Hemoglobin 13.7 g/dL (14.1-18.0); Lymphocytes # 1.5 K/mm3 (0.7-4.5); Lymphocytes % 17.1 % (10-50); Mean Corpuscular HGB Conc 33.2 g/dL (31.8-35.4); Mean Corpuscular Volume 84.5 fl (80-94); Mean Platelet Volume 9.2 fl (7.4-10.4); Monocytes # 1.1 K/mm3 (0.1-1.0); Monocytes % 11.7 % (1.7-9.3); Neutrophils % 65.8 % (37.0-80.0); Nucleated Red Blood Cells # 0.02 10^3/uL; Nucleated Red Blood Cells % 0.2 %; Platelet Count 330 K/mm3 (142-424); Red Blood Count 4.89 M/mm3 (4.60-6.20); Red Cell Distribution Width-SD 48.4 fL
[2024-07-09 09:18] LABS: Chloride 100 mmol/L (98-107); Potassium 4.8 mmoL/L (3.5-5.1); Sodium 136 mmol/L (136-145)
[2024-07-09 09:20] LABS: Blood Urea Nitrogen 17 mg/dl (9-20); Creatinine Clearance Estimated 97 mL/min (50-200); Estimated Glomerular Filt Rate 64 ml/min (>60); GFR (African American) 78 ML/MIN (>60)
[2024-07-09 09:21] LABS: Alanine Aminotransferase 11 U/L (12-78); Albumin/Globulin Ratio 0.7 (1.1-1.8); Alkaline Phosphatase 76 U/L (38-126); Anion Gap 8.8 mEq/L (5-15); Aspartate Amino Transferase 22 U/L (17-59); Bilirubin,Total 1.6 mg/dl (0.2-1.3); Calcium 8.9 mg/dl (8.4-10.2); Carbon Dioxide 32 mmol/L (22.0-30.0); Globulin 4.3 g/dL (1.3-3.2); Glucose 192 mg/dl (74-100); Total Protein,Serum 7.3 g/dl (6.3-8.2)
[2024-07-09] MEDS: PEMBROLIZUMAB 200 MG in 0.9 % SODIUM CHLORIDE 50 ML 116 MG IV (10:31)
[2024-07-09] MEDS: SODIUM CHLORIDE 0.9% 50ML BAG 50 ML IV (10:32)
[2024-07-09 10:35] VITALS: BP 124/62; PULSE 65; RESP 18; TEMP 36.7; O2SAT 98
[2024-07-09 11:15] VITALS: BP 126/69; PULSE 68
== END 2024-07-09 11:20 ==
LOC: INF 08:39
PROVIDERS: PCP Nurse Practitioner Family; Visit Provider Internal Medicine Medical Oncology
DX: C78.00 Secondary malignant neoplasm of unspecified lung (principal); C64.9 Malignant neoplasm of unspecified kidney, except renal pelvis
CPT/HCPCS: 80053; 82024; 82533; 84443; 85025; 96413; J9271

== ENCOUNTER 2024-07-26 07:50 | Outpatient (CLI) | payer MEDICARE, SELFPAY ==
--- NOTE | 2024-07-26 07:51 | CT_ITS ---
FINAL REPORT TECHNIQUE: Routine axial images were obtained from the lung apices to below the diaphragm following IV contrast administration. Individualized dose reduction techniques using automated exposure control or adjustment of the mA and/or kV according to the patient size were employed. CLINICAL HISTORY: lung cancer COMPARISON: 04/12/2024 FINDINGS: CT CHEST WITH CONTRAST: There are multiple small scattered mediastinal lymph nodes present, stable when compared to the prior exam. A small left pleural effusion is present, slightly larger than seen on the prior exam of March. Multiple bilateral pulmonary nodules are again noted. In the right lateral lung, there is an 8 mm nodule, previously 4 mm, best seen on image #35 of series 4. There is a nodule in the left lower lobe, measuring 9 mm in size, was previously 8 mm, best seen on image #31 of series 4. A 5 mm medial right upper lobe nodule previously measured 2 mm, best seen on image 19 of series 4. No new infiltrates or adenopathy are present. IMPRESSION: Multiple bilateral pulmonary nodules, increased in size since the prior CT of 04/12/2024, once again concerning for metastases. Reviewed, Interpreted and Dictated by Jd Walker MD Transcribed by Day Deluca Authenticated and [facility]
--- NOTE | 2024-07-26 07:51 | CT_ITS ---
FINAL REPORT TECHNIQUE: After the administration of oral and intravenous contrast, axial images were obtained through the abdomen and pelvis by computed tomography. The study was performed with techniques to keep radiation dose as low as reasonably achievable, (ALARA). Individual dose reduction techniques using automated exposure control or adjustment of mA and/or kV according to the patient's size were employed. CLINICAL HISTORY: lung cancer COMPARISON: 04/12/2024 FINDINGS: Abdomen: There is significant elevation of the left hemidiaphragm. The liver parenchyma is homogeneous. The gallbladder contains multiple gallstones and is distended. The spleen is not visualized. The pancreas contains calcifications in the tail of the pancreas, that may be the sequela of pancreatitis. There is increased signal and enlargement of the adrenal glands bilaterally, the left adrenal measuring up to 4 cm in size, slightly larger than seen on the prior exam of March, worrisome for metastasis. There is a dominant mass in the lower pole of the right kidney, that measures 12 x 6.7 cm in size, which is lobular, hypervascular, and has some degree of surrounding edema. The masses in the right kidney appear visually larger than seen on the prior CT of 04/12/2024, and there is more infiltration of the fat surrounding the kidney than seen on the prior CT. The aorta is normal in caliber. Old, healed rib fractures are seen posteriorly. Pelvis: The appendix is normal in appearance. The urinary bladder is unremarkable. There is no free fluid or adenopathy. There is streak artifact overlying the pelvis secondary to a left hip arthroplasty. IMPRESSION: The dominant mass in the lower pole of the right kidney, lobular, hypervascular, with surrounding edema appears visually larger when compared to the prior CT of March. The adrenal masses noted on the prior exam are slightly larger in size than seen on the prior CT, worrisome for metastases. Multiple gallstones are present in a distended gallbladder without evidence of pericholecystic fluid or wall thickening. Reviewed, Interpreted and Dictated by Jd Walker MD Transcribed by Day Deluca Authenticated and . [facility]
[2024-07-26] MEDS: SODIUM CHLORIDE 0.9% 10ML SYR (RAD ONLY) 10 ML IV (08:35)
[2024-07-26] MEDS: IOPAMIDOL-370 (76%);100ML BOTTLE 75 ML IV (08:35)
== END 2024-07-26 23:59 | disposition home or self-care (01) ==
LOC: RAD 07:51
PROVIDERS: PCP Nurse Practitioner Family; Visit Provider Internal Medicine Medical Oncology
DX: C64.9 Malignant neoplasm of unspecified kidney, except renal pelvis (principal); C78.01 Secondary malignant neoplasm of right lung; C78.02 Secondary malignant neoplasm of left lung
CPT/HCPCS: 71260; 74177; Q9967

== ENCOUNTER 2024-07-30 09:28 | Outpatient (CLI) | payer MEDICARE, SELFPAY ==
[2024-07-30 09:30] VITALS: BMI 36.8
[2024-07-30 09:44] LABS: Basophils # 0.1 K/mm3 (0-0.2); Basophils % 0.6 % (0.1-2.0); Eosinophils # 0.5 Kmm3 (0.0-0.4); Eosinophils % 5.8 % (0.1-12.0); Hematocrit 43.5 % (42.0-52.0); Hemoglobin 14.2 g/dL (14.1-18.0); Lymphocytes # 1.5 K/mm3 (0.7-4.5); Lymphocytes % 17.3 % (10-50); Mean Corpuscular HGB Conc 32.6 g/dL (31.8-35.4); Mean Corpuscular Hemoglobin 27.2 pg (27.0-31.2); Mean Corpuscular Volume 83.3 fl (80-94); Mean Platelet Volume 8.7 fl (7.4-10.4); Monocytes # 0.9 K/mm3 (0.1-1.0); Monocytes % 10.1 % (1.7-9.3); Neutrophils # 5.6 K/mm3 (1.8-7.8); Neutrophils % 65.7 % (37.0-80.0); Nucleated Red Blood Cells # 0 10^3/uL; Nucleated Red Blood Cells % 0 %; Platelet Count 363 K/mm3 (142-424); Red Blood Count 5.22 M/mm3 (4.60-6.20); Red Cell Distribution Width 17.2 % (11.5-17.5); Red Cell Distribution Width-SD 50.1 fL; White Blood Count 8.5 K/mm3 (4.8-10.8)
[2024-07-30 10:04] LABS: Albumin Level 3.5 g/dl (3.5-5.0); Chloride 102 mmol/L (98-107); Potassium 4.6 mmoL/L (3.5-5.1); Sodium 138 mmol/L (136-145)
[2024-07-30 10:07] LABS: Alanine Aminotransferase 12 U/L (12-78); Albumin/Globulin Ratio 0.9 (1.1-1.8); Anion Gap 6.6 mEq/L (5-15); Aspartate Amino Transferase 21 U/L (17-59); Blood Urea Nitrogen 20 mg/dl (9-20); Carbon Dioxide 34 mmol/L (22.0-30.0); Creatinine Clearance Estimated 87 mL/min (50-200); Estimated Glomerular Filt Rate 58 ml/min (>60); GFR (African American) 70 ML/MIN (>60); Globulin 4.1 g/dL (1.3-3.2); Total Protein,Serum 7.6 g/dl (6.3-8.2)
[2024-07-30 10:08] LABS: Alkaline Phosphatase 86 U/L (38-126); Bilirubin,Total 1.2 mg/dl (0.2-1.3); Calcium 9.5 mg/dl (8.4-10.2); Glucose 132 mg/dl (74-100)
[2024-07-30 10:38] LABS: Thyroid Stimulating Hormone 3.74 uIU/mL (0.465-4.68)
[2024-07-31 14:16] LABS: Adrenocorticotropic Hormone 42.3 pg/mL (7.2-63.3)
== END 2024-07-30 10:45 | disposition home or self-care (01) ==
LOC: INF 09:29
PROVIDERS: PCP Nurse Practitioner Family; Visit Provider Internal Medicine Medical Oncology
DX: C64.9 Malignant neoplasm of unspecified kidney, except renal pelvis (principal)
CPT/HCPCS: 36415; 80053; 82024; 82533; 84443; 85025